=== PATIENT | female | born 1940 | race Caucasian/White ===

== ENCOUNTER 2024-03-02 22:14 | Inpatient (IN) | payer OTHER ==
[~2024-03-02] VITALS: Ht 160 cm; Wt 77.4 kg
[2024-03-02 22:41] LABS: Eosinophils # (auto) 0 10 ^3/uL (0-0.8); Monocytes # (auto) 0.4 10 ^3/uL (0-1.3); White Blood Cell 4.1 10^3/uL (4.4-10.8)
[2024-03-02 22:43] LABS: Basophils # (auto) 0.1 10 ^3/uL (0-0.2); Basophils % (auto) 1.2 % (0.0-2.0); Eosinophils % (auto) 0.6 % (0.0-7.0); Hematocrit 13.1 % (36.0-46.0); Lymphocytes # (auto) 0.5 10 ^3/uL (0.4-5.4); Lymphocytes % (auto) 12.7 % (10.0-50.0); Mean Corpuscular Hemoglobin 20.2 pg (28.0-32.0); Mean Corpuscular Hgb Conc. 28.7 g/dL (32.0-36.0); Mean Corpuscular Volume 70.2 fL (80.0-100.0); Monocytes % (auto) 10.6 % (0.0-12.0); Neutrophils # (auto) 3.1 10 ^3/uL (1.6-8.6); Neutrophils % (auto) 74.9 % (37.0-80.0); Nucleated Red Blood Cells % 0.9 %; Platelet Count (auto) 177 10^3/uL (140-450); Red Blood Cells 1.86 10^6/uL (4.0-5.20)
--- NOTE | 2024-03-02 22:49 | ED.PDOC ---
HPI Comments HPI: Poor Historian. 83-year-old female brought in by ambulance for evaluation of two day history of intermittent chest pain, shortness of breath, dizziness episodes. Patient was going to the bathroom today and she felt dizzy and called 911. No particular alleviating or precipitating factors. Patient takes iron pills. Denies any bleeding from anywhere. Pre-hospital course vital signs per EMS were stable. Past Medcial History: Osteoporosis, hypertension, hyperlipidemia, DVT on Eliquis, Past Surgical History: Bilateral hip surgery, bladder surgery REVIEW OF SYSTEMS: CONSTITUTIONAL: Denies acute: fever, diaphoresis, chills, HEAD: Denies acute: headache, photophobia Eyes: Denies acute: Double vision, vision loss, eye pain, eye discharge. EARS: Denies acute: tinnitus, hearing loss, ear discharge, ear pain, THROAT: Denies acute: sore throat, swelling, difficulty swallowing , pain with swallowing, change in voice. NECK: Denies acute: neck pain, neck swelling, stiff neck. HEART: Denies acute : palpitations, LUNGS: Denies acute: wheezing, cough, hemoptysis ABDOMEN: Denies acute: abdominal pain, Nausea, Vomiting, diarrhea, melena , hematemesis, hematochezia SKIN: Denies acute: rash, redness, lesions, itchiness. EXTREMITIES: Denies acute: calf pain, numbness, tingling, weakness, denies pain in extremity. Denies acute: Low back pain. Neuro: Denies acute: focal neurological deficit, motor or sensory focal neurological deficit, tremors, seizure like activity, confusion, change in mental status, loss of bowel or bladder function, cauda equina like symptoms. : Denies acute: dysuria, hematuria, flank pain, increase in urinary frequency. PSYCH: Denies acute: hallucination, suicidal ideation, homicidal ideation. FEMALE: Denies acute: abnormal vaginal bleeding, foul odor, unusual discharge. PHYSICAL EXAM: General: no acute distress, awake and alert. Head: normocephalic, atraumatic. Neck: supple, trachea is midline, no swelling. Throat: Normal phonation. Eyes:, no erythema, no purulent discharge, no proptosis, no icterus. Heart: regular rate, regular rhythm, no significant murmur appreciated. Lungs: no apparent respiratory distress, Able to speak in full sentences. No wheezing, no rhonchi, no crackles. No stridors Clear to auscultation bilaterally. Abdomen: non tender to palpation, non distended, soft, no guarding, no rebound, + bowel sounds. Neuro: Awake, Alert, oriented to name, self, situation, follows commands GCS=15. Speech is normal. Skin: no petechia, no purpura, no cyanosis, noted-pale, not jaundice. Lower extremities: --1/4 bilateral - Pitting edema no deformity, no focal swelling, no calf TTP. Makes eye contact. moves all four extremities. Face: no apparent facial droop. Chief Complaint: Chest Pain Time Seen by MD: 22:22 Primary Care Provider: NONE Reviewed Notes: Nurses Notes, Player Piano Technician Notes, Medications, Allergies Allergies: Coded Allergies: NO KNOWN ALLERGIES (Unverified , 03/02/24) Home Meds Reported Medications Latanoprost (LATANOPROST) 0.005 % Cecilia, 1 DROP EACHEYE QPM, #2.5 ML 6 Refills 03/03/24 Alendronate Sodium (Alendronate Sodium) 35 Mg Tab, 1 TAB PO QWEEKLY, #4 TAB 11 Refills 03/03/24 Lorazepam (ATIVAN TABLET) 0.5 Mg Tb, 1 TAB PO TID, #90 TAB 03/03/24 Omeprazole (Gnp Omeprazole) 20 Mg Tab, 1 TAB PO DAILY, #90 TAB 1 Refill 03/03/24 Lovastatin (Lovastatin) 40 Mg Tab, 1 TAB PO DAILY, #30 TAB 5 Refills 03/03/24 Metoprolol Tartrate (Lopressor) 25 Mg Tb, 25 MG PO Q12HR, TAB 0 Refills 03/03/24 Apixaban Base (ELIQUIS) 5 Mg Tab, 5 MG PO BID, TAB 03/03/24 Information Source: Patient Mode of Arrival: EMS Was a procedure done? Was a procedure done?: No CP Differential Dx Differential Diagnosis: N/A Differential Diagnosis: Other (Ddx include but not limitied to gastritis, musculoskeletal pain, radiculopathy, atypical chest pain, dissection, aneurysm, ACS, unstable angina, hiatal hernia, GERD, anxiety, costochondritis, PE, pneumothroax, neoplasm, cardiac ischemia, drug abuse, anemia.) X-Ray, Labs, Meds, VS Vital Signs Date Time Temp Pulse Resp B/P (MAP) Pulse Ox O2 Delivery O2 Flow Rate FiO2 03/03/24 00:04 125/42 03/03/24 00:00 85 16 123/38 (66) 95 03/02/24 23:30 84 03/02/24 23:20 98.2 90 21 125/42 (69) 100 98.2 03/02/24 23:20 90 21 100 Room Air* 0 21 03/02/24 22:24 88 03/02/24 22:20 97.7 90 16 131/68 (89) 96 Lab Test 03/02/24 23:50 03/02/24 23:06 03/02/24 22:25 Range/Units Lactic Acid Level 1.3 0.4-2.0 mmol/L Troponin I High Sensitivity 25 21 </=34 ng/L White Blood Count 4.1 L 4.4-10.8 10^3/uL Red Blood Count 1.86 L 4.0-5.20 10^6/uL Hemoglobin 3.8 *L 12.2-16.2 g/dL Hematocrit 13.1 L 36.0-46.0 % Mean Corpuscular Volume 70.2 L 80.0-100.0 fL Mean Corpuscular Hemoglobin 20.2 L 28.0-32.0 pg Mean Corpuscular Hemoglobin Concent 28.7 L 32.0-36.0 g/dL Red Cell Distribution Width 22.7 H 11.8-14.3 % Platelet Count 177 140-450 10^3/uL Mean Platelet Volume 9.1 6.9-10.8 fL Neutrophils (%) (Auto) 74.9 37.0-80.0 % Lymphocytes (%) (Auto) 12.7 10.0-50.0 % Monocytes (%) (Auto) 10.6 0.0-12.0 % Eosinophils (%) (Auto) 0.6 0.0-7.0 % Basophils (%) (Auto) 1.2 0.0-2.0 % Neutrophils # (Auto) 3.1 1.6-8.6 10 ^3/uL Lymphocytes # (Auto) 0.5 0.4-5.4 10 ^3/uL Monocytes # (Auto) 0.4 0-1.3 10 ^3/uL Eosinophils # (Auto) 0 0-0.8 10 ^3/uL Basophils # (Auto) 0.1 0-0.2 10 ^3/uL Nucleated Red Blood Cells 0.9 % Platelet Estimate [place] Large Platelets Few Hypochromasia (manual) Moderate Anisocytosis (manual) Slight Microcytosis Slight Ovalocytes Few Stomatocytes Few Prothrombin Time 12.0 H 9.3-11.8 sec Prothrombin Time INR 1.14 0.9-1.15 Activated Partial Thromboplast Time 24.6 24.5-34.5 SEC Sodium Level 138 136-145 mmol/L Potassium Level 3.9 3.5-5.1 mmol/L Chloride Level 110 H 98-107 mmol/L Carbon Dioxide Level 23 20-31 mmol/L Anion Gap 5 5-15 Blood Urea Nitrogen 12 9-23 mg/dL Creatinine 0.76 0.550-1.02 mg/dL Glomerular Filtration Rate Calc 78 >90 mL/min BUN/Creatinine Ratio 15.8 10.0-20.0 Serum Glucose 119 H 74-106 mg/dL Calcium Level 8.6 L 8.7-10.4 mg/dL Magnesium Level 2.2 1.6-2.6 mg/dL Total Bilirubin 0.5 0.2-1.0 mg/dL Aspartate Amino Transferase (AST) < 8 L 13-40 U/L Alanine Aminotransferase (ALT) < 9 7-40 U/L Alkaline Phosphatase 31 L 46-116 U/L B-Type Natriuretic Peptide 593.36 0-100 pg/mL Total Protein 5.8 5.7-8.2 g/dL Albumin 4.0 3.2-4.8 g/dL [place] [id number] Ph: [phone] DIAGNOSTIC IMAGING Diagnostic Imaging Report : [id number] Signed PATIENT: MARICARMEN FANG ACCT: [id number] UNIT: [id number] : 1940 LOC: ER ROOM / BED: / AGE / SEX: 83 / F ADM STATUS: REG ER SERVICE [id number] ORDERING PHYSICIAN: HARJEET MONTERROSO MD PROCEDURE(s): CXRP - CHEST PORTABLE REASON: CHEST PAIN ORDER NUMBER(s): [id number], ACCESSION NUMBER(s): [id number] EXAM: XY CHEST PORTABLE CLINICAL HISTORY: CHEST PAIN TECHNIQUE: Single AP view of the chest WID: COMPARISON: None FINDINGS: Lines and tubes: None Chest: Mild cardiomegaly without pulmonary vascular congestion. Calcified plaque projects over the aortic arch. Linear bibasilar opacities.Thorax no pneumothorax. Suggestion of blunting of the left costophrenic angle. The osseous structures are grossly intact. Multilevel thoracic spondylosis. Degenerative changes of the bilateral shoulders. IMPRESSION: Mild cardiomegaly with possible small left pleural effusion. Linear bibasilar opacities likely scarring or atelectasis. ATED BY: FELICIANO PRECIADO MD DICTATED DATE/TIME: 03/03/24133 SIGNED BY: FELICIANO PRECIADO MD SIGNED DATE/TIME: 03/03/24133 CC: Time of 1ST Reevaluation: 23:38 (The case was discussed with the admitting team (HPI, physical exam, labs and diagnostic tests that were available at the time of disposition, ED course, treatment plan) on the phone. They agreed to admit the patient to their service and assume care of this patient from this point forward. --- Xiomara) Reevaluation 1ST: Unchanged Patient Education/Counseling: Diagnosis, Treatment Family Education/Counseling: No Family Present Comments Patient presented with the above HPI.---cardiac---workup was initiated. patient was found with the above mentioned diagnosis. Patient was given: Lasix, Protonix, transfusion of packed red blood cells. Patient was consented for transfusion. Patient ED course and VS have been stabilized. Patient has been reassessed in the ED and remained in a stable condition. Pertinent incidental findings were discussed with the patient and/or family. Patient/family voices understanding and is agreeable with plan. Patient has been observed in the ED adequate length of time to insure improvement/stability. patient was admitted to the medicine team for further evaluation and treatment of their presentation. All the reports of any imaging studies that were ordered by myself were reviewed by myself. Departure 1 Departure Time of Disposition: 22:48 Impression: Primary Impression: Chest pain Additional Impression: Symptomatic anemia Disposition: ADMITTED INPATIENT Admit to: Tele Condition: Guarded Discharged With: Self Critical Care Note Critical Care Time?: Yes (45 min-critical care time only) Heart Score Heart Score: Heart Score Response (Comments) Value History Moderate Suspicious 1 EKG Normal 0 Age >65 2 Risk Factors >3 or Hx ASHD 2 Troponin Normal limit 0 Total 5 SURINDER SHERWOOD DO Mar 02, 2024 22:49
[2024-03-02 22:57] LABS: INR 1.14 (0.9-1.15); Partial Thromboplastin Time 24.6 SEC (24.5-34.5)
[2024-03-02 22:59] LABS: Alkaline Phosphatase 31 U/L (46-116); Anion Gap 5 (5-15); Aspartate Aminotransferase < 8 U/L (13-40); BUN/Creatinine Ratio 15.8 (10.0-20.0); Bilirubin, Total 0.5 mg/dL (0.2-1.0); Blood Urea Nitrogen 12 mg/dL (9-23); Calcium 8.6 mg/dL (8.7-10.4); Carbon Dioxide 23 mmol/L (20-31); Chloride 110 mmol/L (98-107); Glucose 119 mg/dL (74-106); Magnesium 2.2 mg/dL (1.6-2.6); Potassium 3.9 mmol/L (3.5-5.1); Sodium 138 mmol/L (136-145); Total Protein 5.8 g/dL (5.7-8.2)
[2024-03-02 23:14] LABS: Alanine Aminotransferase < 9 U/L (7-40)
[2024-03-02 23:16] LABS: Hemoglobin 3.8 g/dL (12.2-16.2); Red Cell Distribution Width 22.7 % (11.8-14.3)
[2024-03-02 23:20] VITALS: PULSE 90; RESP 21; O2SAT 100
[2024-03-02] MEDS: PANTOPRAZOLE 40 MG/10 ML VIAL INJ IV ONE (23:28)
[2024-03-02 23:40] LABS: Anisocytosis Slight; Hypochromia Moderate; Ovalocytes FEW; Stomatocytes Few
[2024-03-02 23:44] LABS: Large Platelets FEW; Platelet Estimate Adequa
[2024-03-03] VITALS (25 sets, daily range): BP systolic 115–146; BP diastolic 38–79; PULSE 73–89; RESP 16–23; TEMP 89–99.5; O2SAT 90–97
[2024-03-03] MEDS: FUROSEMIDE 20 MG/2 ML VIAL IV ONE (00:04)
[2024-03-03] MEDS ORDERED: MORPHINE SULFATE INJ 2 MG/ml SYRG IV PRN ×2 (00:15)
[2024-03-03] MEDS ORDERED: NITROGLYCERIN 0.4 MG SL TAB SL PRN (00:15)
[2024-03-03 00:50] LABS: Urine Bacteria None Seen /hpf (None Seen)
[2024-03-03 01:01] LABS: % Iron Saturation 1.5 % (15-50)
[2024-03-03 01:03] LABS: Urine Blood Negative /uL (Negative); Urine Clarity Clear (Clear); Urine Protein, UAD Negative (Negative); Urine Specific Gravity 1.009 (1.001-1.035); Urine Urobilinogen Normal (Negative); Urine WBC <1 /hpf (0 - 5)
[2024-03-03 01:35] LABS: Urine Color STRAW (Yellow)
--- NOTE | 2024-03-03 01:36 | DVH ---
EXAM: XY CHEST PORTABLE CLINICAL HISTORY: CHEST PAIN TECHNIQUE: Single AP view of the chest WID: COMPARISON: None FINDINGS: Lines and tubes: None Chest: Mild cardiomegaly without pulmonary vascular congestion. Calcified plaque projects over the aortic a rch. Linear bibasilar opacities.Thorax no pneumothorax. Suggestion of blunting of the left costophrenic a ngle. The osseous structures are grossly intact. Multilevel thoracic spondylosis. Degenerative changes of t he bilateral shoulders. IMPRESSION: Mild cardiomegaly with possible small left pleural effusion. Linear bibasilar opacities likely scarring or atelectasis.
--- NOTE | 2024-03-03 04:25 | ECG ---
[facility] Test Date: 2024-03-02 Test Time: 23:30:56 Pat Name: MARICARMEN FANG Department: ER Room: 0278T B Gender: F Measurement Superintendent: ER : 1940 Requested By: HARJEET MONTERROSO Order Number: [id number] Reading MD: Edwin Cortez Measurements Intervals [place] Rate: 84 P: 58 ID: [id number] QRS: -24 QRSD: 136 T: 69 QT: 394 QTc: 466 Interpretive Statements Sinus rhythm Atrial premature complex Nonspecific intraventricular conduction delay Probable anteroseptal infarct, recent Electronically Signed On 03-03-2024 9:32:05 PDT by Edwin Cortez Please click the below link to view image of tracing.
--- NOTE | 2024-03-03 04:25 | ECG ---
[facility] Test Date: 2024-03-02 Test Time: 22:24:50 Pat Name: MARICARMEN FANG Department: ER Room: 0278T B Gender: F Chargeback Analyst: ER : 1940 Requested By: HARJEET MONTERROSO Order Number: [id number] Reading MD: Edwin Cortez Measurements Intervals [place] Rate: 88 P: 46 [place]: 151 QRS: 7 QRSD: 136 T: 26 QT: 402 QTc: 487 Interpretive Statements Sinus rhythm Ventricular premature complex Nonspecific intraventricular conduction delay Extensive anterior infarct, old Minimal ST depression, lateral leads Electronically Signed On 03-03-2024 9:32:00 PDT by Edwin Cortez Please click the below link to view image of tracing.
--- NOTE | 2024-03-03 04:26 | ECG ---
[facility] Test Date: 2024-03-03 Test Time: 01:16:14 Pat Name: MARICARMEN FANG Department: ER Room: 0278T B Gender: F Optical Worker: ER : 1940 Requested By: HARJEET MONTERROSO Order Number: [id number] Reading MD: Edwin Cortez Measurements Intervals [place] Rate: 77 P: 47 [place]: 140 QRS: 25 QRSD: 136 T: 63 QT: 417 QTc: 472 Interpretive Statements Sinus rhythm IVCD, consider atypical LBBB Baseline wander in lead(s) III,aVL,V1,V2,V3,V4,V6 Electronically Signed On 03-03-2024 9:32:12 PDT by Edwin Cortez Please click the below link to view image of tracing.
[2024-03-03] MEDS ORDERED: APIX5TAB PO (05:33)
[2024-03-03] MEDS ORDERED: LOVA40TA72 PO (05:34)
[2024-03-03] MEDS ORDERED: MET25T PO (05:34)
[2024-03-03] MEDS ORDERED: OMEP20TA PO (05:34)
[2024-03-03] MEDS ORDERED: LORA-1121 PO (05:35)
[2024-03-03] MEDS ORDERED: ALEN35TA18 PO (05:35)
[2024-03-03] MEDS ORDERED: LATA0.008 EACHEYE (05:36)
--- NOTE | 2024-03-03 05:43 | DVHHP ---
ADMIT DATE: 03/02/2024 CHIEF COMPLAINT: Coming in for dyspnea, lightheadedness, lack of energy. HISTORY OF PRESENT ILLNESS: An 83-year-old female with significant past medical history for chronic DVTs, on Eliquis, essential hypertension, hyperlipidemia, iron deficiency anemia, who presents to Emergency Room with 3 days' worth of shortness of breath, dyspnea, lack of energy, feeling lightheadedness, chest tightness and feeling the sensation of collapse and the patient apparently also looking very pale on presentation here to the Emergency Room. Says her symptoms progressively got worse today to a point where she could not even get up to stand or to walk and felt lightheaded to a point that she felt like she was going to syncopize. The patient also felt some chest pressure symptoms. She says that she has not had any palpitations, but felt like her heart was thumping or unusually pumping compared to usual. She did not have any nausea or vomiting. The patient says that she has had some bright red blood on wiping herself the other day, but no other occasion that she had noticed any tarry or bloody stools in the last month. She does take iron pills, but quit them 4 weeks ago due to constipation. The patient says that she has had a blood transfusion many years ago, but never has required any as of the last few years. The patient otherwise denies any other constitutional symptoms including fevers, chills. She denies any cough or phlegm, urinary frequency, urgency or burning sensation, any diarrhea or constipation. PAST MEDICAL HISTORY: DVTs, essential hypertension, hyperlipidemia, iron deficiency anemia. PAST SURGICAL HISTORY: Left hip replacement 3 years ago, right hip replacement about 12 months ago, bladder surgery about 8 years ago, hysterectomy history, appendectomy history and one tonsil removal. SOCIAL HISTORY: No tobacco, occasional alcohol, no illicit drugs. MEDICATIONS AT HOME: Per medical reconciliation. MEDICATION ALLERGIES: No known drug allergies. REVIEW OF SYSTEMS: A 10-point review of system was covered with the patient and was negative with exception to what was present in history of present illness. PHYSICAL EXAMINATION: VITAL SIGNS: Temperature 98.2, pulse rate of 90, respiratory rate of 21, blood pressure of 125/42, pulse ox about 100% on room air. GENERAL: Seems to be alert, oriented x 4, not in acute distress, pale looking female, lying in bed. HEENT: Normocephalic, atraumatic. Extraocular muscles are intact. Pupils are equally round, react to light and accommodations. Mucous membranes look moist. CARDIOVASCULAR: S1, S2 positive, regular rate and rhythm. No rubs, gallops or murmurs. LUNGS: Seem to be clear to auscultation bilaterally. No wheezes, rhonchi or rales. ABDOMEN: Seems to be soft, nontender, nondistended, positive bowel sounds. No guarding or rebound. EXTREMITIES: Lower extremities, no lower extremity edema, clubbing or cyanosis. NEUROLOGIC: No focal deficits. Cranial nerves testing 2-12 overall seems to be intact. LABORATORY WORKUP: Shows a white count 4.1, H and H of 3.8/13.1 with a platelet count of 177. There is no neutrophil shift. INR of 1.14. Sodium of 138, potassium of 3.9, chloride of 110, carbon dioxide of 23, BUN of 12, creatinine of 0.76, serum glucose of 119. Lactic acid 1.3, calcium of 8.6, total bilirubin 0.5, AST of less than 8, ALT of less than 9, alkaline phosphatase of 31. Troponins of 21 and 25. BNP of 593. IMAGING: Chest x-ray was completed, shows enlarged heart with some pulmonary vascular congestion is present. Final interpretation by Radiology is currently pending. EKG shows sinus rhythm, ventricular rate of 84 with atrial premature complexes present. DIAGNOSIS: Symptomatic anemia. SECONDARY DIAGNOSES: History of deep venous thrombosis, essential hypertension, hyperlipidemia, iron deficiency anemia. PLAN: The patient will be admitted to medical telemetry for under observation status. Consultation with Hematology as well as Gastroenterology has been requested. The patient is currently stable with blood pressures in the 120s over 40s with heart rates in the 80s to 90s. The patient seems to have what seems to be a chronic loss of blood, possibly due to a bone marrow etiology versus hemolytic process and less likely a gastrointestinal loss. The patient despite this will be maintained n.p.o. at this point in time. Eliquis will be held at this point. We will await further recommendations by consultants. The patient will be placed on Protonix 40 IV b.i.d. The patient to have serial CBCs q. 6 hours. The patient has been ordered to be typed and screened and to be transfused with 2 units of blood and to have a post-transfusion CBC completed. The patient has also been ordered hemolytic workup with direct and total bilirubin, haptoglobin, lactate dehydrogenase and as well as an iron panel and as well as a stool fecal occult blood to be completed. The patient otherwise is a full code. Further recommendations will depend on patient's hospital progression. Joselito Marroquin MD LM/HEM TID: [id number] RECEIPT: [id number]
--- NOTE | 2024-03-03 08:27 | DVHINCON2 ---
Date of service: Mar 03, [address] Ty Reason for Consultation Microcytic hypochromic anemia consistent with iron deficiency History of Present Illness 83 years old female who gives the following history: She states 3 years back she broke her left hip and sometimes later was found to have a blood clot and she is not too sure which side the blood clot was. She has been on Eliquis since then. She says 1 year back she broke her right hip and does not give any history of any new blood clots. She has continued on the Eliquis. Now she is admitted with severe anemia weakness tiredness and lightheadedness And her CBC showed a white count of 4.1 hemoglobin 3.8 MCV 70.2 platelets 177 confirmed on the blood smear Total protein 5.8 albumin 4 LDH 144 normal liver functions. Serum iron is down to 6 saturation is 1.5 and has normal renal functions PT/INR 1.14 and PTT 24.6 She has been given 2 units of packed red cells and is feeling somewhat better She does complain of having some pain in the left lower quadrant of the abdomen. No change in her bowel habits. No nausea vomiting. No black stools. No complaints of weight loss. No fevers night sweats no bruising or bleeding. Past Medical History Both hip fractures Hysterectomy She says she had packed red cell transfusion probably 50 years back for some unknown reason Hypertension High cholesterol Family History: FH: dementia Family History No smoking at least for 10 years. Rare alcohol drinking. No drugs Social History Father had some cancer Allergies: Coded Allergies: NO KNOWN ALLERGIES (Unverified , 03/02/24) Home Meds Reported Medications Latanoprost (LATANOPROST) 0.005 % Cecilia, 1 DROP EACHEYE QPM, #2.5 ML 6 Refills 03/03/24 Alendronate Sodium (Alendronate Sodium) 35 Mg Tab, 1 TAB PO QWEEKLY, #4 TAB 11 Refills 03/03/24 Lorazepam (ATIVAN TABLET) 0.5 Mg Tb, 1 TAB PO TID, #90 TAB 03/03/24 Omeprazole (Gnp Omeprazole) 20 Mg Tab, 1 TAB PO DAILY, #90 TAB 1 Refill 03/03/24 Lovastatin (Lovastatin) 40 Mg Tab, 1 TAB PO DAILY, #30 TAB 5 Refills 03/03/24 Metoprolol Tartrate (Lopressor) 25 Mg Tb, 25 MG PO Q12HR, TAB 0 Refills 03/03/24 Apixaban Base (ELIQUIS) 5 Mg Tab, 5 MG PO BID, TAB 03/03/24 Current Medications Current Medications Medications (Trade) Dose Ordered Sig/Wm Route PRN Reason Start Time Stop Time Status Last Admin Ondansetron HCl (Zofran) 4 mg Q4HP PRN IV NAUSEA / VOMITING 03/03/24 00:15 Morphine Sulfate 2 mg Q4HPRN PRN IV SEVERE PAIN (7-10 PAIN SCALE) 03/03/24 00:15 Nitroglycerin (Ntrostat Sublingual) 0.4 mg Q5MINP PRN SL FOR CHEST PAIN 03/03/24 00:15 Morphine Sulfate 2 mg Q30M PRN IV FOR CHEST PAIN 03/03/24 00:15 Pantoprazole Sodium (Protonix) 40 mg DAILY IV 03/03/24 10:00 Vital Signs Vital Signs Date Time Temp Pulse Resp B/P (MAP) Pulse Ox O2 Delivery O2 Flow Rate FiO2 03/03/24 07:20 98.8 75 18 143/59 98.8 03/03/24 05:00 97 03/03/24 04:50 Room Air* 0 21 Physical Exam Patient is moderately built and nourished, in no acute distress, alert and oriented Head and neck: Unremarkable for any masses or lymphadenopathy. Thyroid is not palpable No conjunctival or mucosal hemorrhage Lungs: Clear to auscultation and percussion Cardiovascular: S1-S2 heard Abdomen: No organomegaly . Bowel sounds are present. No ascites.Slightly tender in the left lower quadrant of the abdomen No lymphadenopathy Skin: Unremarkable for petechia purpura ecchymosis Neurology: No focal deficit Extremities: No clubbing, edema or cyanosis. No calf tenderness Labs/Diagnostic Data Labs Test 03/03/24 00:29 03/03/24 00:25 03/02/24 23:50 03/02/24 23:06 Range/Units Urine Color Straw Yellow Urine Clarity Clear Clear Urine pH 6.0 5.0-9.0 Urine Specific [place] 1.009 1.001-1.035 Urine Protein Negative Negative Urine Ketones Negative Negative Urine Blood Negative Negative /uL Urine Nitrite Negative Negative Urine Bilirubin Negative Negative Urine Urobilinogen Normal Negative mg/dL Urine Leukocyte Esterase 1+ Negative /uL Urine RBC None seen 0 - 4 /hpf Urine WBC <1 0 - 5 /hpf Urine Squamous Epithelial Cells Few <5 /hpf Urine Bacteria None seen None Seen /hpf Urine Glucose Normal Normal mg/dL Reticulocyte Count (auto) 2.77 H 0.5-1.5 % Iron Level 6 L 50-170 ug/dL Total Iron Binding Capacity 409 250-425 ug/dL Percent Iron Saturation 1.5 L 15-50 % Direct Bilirubin 0.2 <0.3 mg/dL Lactate Dehydrogenase 144 120-246 U/L Lactic Acid Level 1.3 0.4-2.0 mmol/L Troponin I High Sensitivity 25 </=34 ng/L Test 03/02/24 22:25 Range/Units White Blood Count 4.1 L 4.4-10.8 10^3/uL Red Blood Count 1.86 L 4.0-5.20 10^6/uL Hemoglobin 3.8 *L 12.2-16.2 g/dL Hematocrit 13.1 L 36.0-46.0 % Mean Corpuscular Volume 70.2 L 80.0-100.0 fL Mean Corpuscular Hemoglobin 20.2 L 28.0-32.0 pg Mean Corpuscular Hemoglobin Concent 28.7 L 32.0-36.0 g/dL Red Cell Distribution Width 22.7 H 11.8-14.3 % Platelet Count 177 140-450 10^3/uL Mean Platelet Volume 9.1 6.9-10.8 fL Neutrophils (%) (Auto) 74.9 37.0-80.0 % Lymphocytes (%) (Auto) 12.7 10.0-50.0 % Monocytes (%) (Auto) 10.6 0.0-12.0 % Eosinophils (%) (Auto) 0.6 0.0-7.0 % Basophils (%) (Auto) 1.2 0.0-2.0 % Neutrophils # (Auto) 3.1 1.6-8.6 10 ^3/uL Lymphocytes # (Auto) 0.5 0.4-5.4 10 ^3/uL Monocytes # (Auto) 0.4 0-1.3 10 ^3/uL Eosinophils # (Auto) 0 0-0.8 10 ^3/uL Basophils # (Auto) 0.1 0-0.2 10 ^3/uL Nucleated Red Blood Cells 0.9 % Platelet Estimate [place] Large Platelets Few Hypochromasia (manual) Moderate Anisocytosis (manual) Slight Microcytosis Slight Ovalocytes Few Stomatocytes Few Prothrombin Time 12.0 H 9.3-11.8 sec Prothrombin Time INR 1.14 0.9-1.15 Activated Partial Thromboplast Time 24.6 24.5-34.5 SEC Sodium Level 138 136-145 mmol/L Potassium Level 3.9 3.5-5.1 mmol/L Chloride Level 110 H 98-107 mmol/L Carbon Dioxide Level 23 20-31 mmol/L Anion Gap 5 5-15 Blood Urea Nitrogen 12 9-23 mg/dL Creatinine 0.76 0.550-1.02 mg/dL Glomerular Filtration Rate Calc 78 >90 mL/min BUN/Creatinine Ratio 15.8 10.0-20.0 Serum Glucose 119 H 74-106 mg/dL Calcium Level 8.6 L 8.7-10.4 mg/dL Magnesium Level 2.2 1.6-2.6 mg/dL Total Bilirubin 0.5 0.2-1.0 mg/dL Aspartate Amino Transferase (AST) < 8 L 13-40 U/L Alanine Aminotransferase (ALT) < 9 7-40 U/L Alkaline Phosphatase 31 L 46-116 U/L B-Type Natriuretic Peptide 593.36 0-100 pg/mL Total Protein 5.8 5.7-8.2 g/dL Albumin 4.0 3.2-4.8 g/dL Assessment 1. Microcytic hypochromic anemia consistent with iron deficiency, rule out GI bleeding, she has some tenderness in the left lower quadrant of the abdomen. Patient has been on Eliquis and she said last dose she took was yesterday 2. History of leg DVT after a left hip fracture 3 years back and has been on Eliquis. Was provoked DVT. 3. History of hypertension 4. High cholesterol 5. History of hysterectomy Plan/Recommendation Suggest doing a venous Doppler and may DC the Eliquis as she had a provoked DVT Check D-dimer GI evaluation for iron deficiency anemia and left lower quadrant abdominal tenderness Do a CT scan of the abdomen pelvis with contrast Plan discussed with: Patient CALOS OLVERA MD Mar 03, 2024 08:27
[2024-03-03] MEDS: OMNIPAQUE 12mg/ml 500ml ORAL SOLUTION PO ONE (08:37)
--- NOTE | 2024-03-03 09:30 | DVH ---
Bilateral lower extremity venous duplex Clinical History: swelling Comparison: None Technique: Duplex Doppler evaluation of the deep venous systems of both lower extremities from the common femora l veins to the popliteal veins including color Doppler and spectral/pulsed waveform analysis was perf ormed. Findings: RIGHT SIDE: The common femoral vein demonstrates appropriate compressibility and waveform variability. There is compressibility/patency of the great saphenous vein at the proximal thigh. The femoral vein demonstrates appropriate compressibility and waveform variability. The deep femoral vein demonstrates appropriate compressibility and waveform variability. The popliteal vein demonstrates appropriate compressibility and waveform variability. There is normal compressibility at the tibioperoneal trunk. LEFT SIDE: The common femoral vein demonstrates appropriate compressibility and waveform variability. There is compressibility/patency of the great saphenous vein at the proximal thigh. The femoral vein demonstrates appropriate compressibility and waveform variability. The deep femoral vein demonstrates appropriate compressibility and waveform variability. The popliteal vein demonstrates appropriate compressibility and waveform variability. There is normal compressibility at the tibioperoneal trunk. Impression: No right or left femoropopliteal venous thrombosis.
[2024-03-03] MEDS: PANTOPRAZOLE 40 MG/10 ML VIAL INJ IV SCH (09:58)
[2024-03-03] MEDS: ONDANSETRON HCL 4 MG/2 ML VIAL IV PRN (10:03)
[2024-03-03] MEDS: IOHEXOL 300 MG/ML 100ML BOTTLE IJ ONE (10:16)
[2024-03-03 10:17] LABS: Alkaline Phosphatase 37 U/L (46-116); Anion Gap 7 (5-15); BUN/Creatinine Ratio 14.3 (10.0-20.0); Blood Urea Nitrogen 11 mg/dL (9-23); Calcium 8.9 mg/dL (8.7-10.4); Carbon Dioxide 25 mmol/L (20-31); Chloride 105 mmol/L (98-107); Glucose 98 mg/dL (74-106); Potassium 3.6 mmol/L (3.5-5.1); Sodium 137 mmol/L (136-145)
[2024-03-03 10:18] LABS: Albumin 4.1 g/dL (3.2-4.8); Aspartate Aminotransferase < 8 U/L (13-40); Bilirubin, Total 2.1 mg/dL (0.2-1.0); Total Protein 6.2 g/dL (5.7-8.2)
[2024-03-03 10:19] LABS: Alanine Aminotransferase < 9 U/L (7-40)
--- NOTE | 2024-03-03 10:50 | DVH ---
Exam: CT CT ABD PELVIS W CON-ORAL IV History: anemia, lt LQ abd tenderness COMPARISON: None Technique: Multidetector spiral CT of the abdomen and pelvis was performed from lung bases to pubic symphysis. Intravenous contrast was administered during this examination. Portal venous imaging was obtained. Axial, coronal and sagittal multiplanar reformats were performed by the technologist on a separate workstation. Radiation Dose : Abdomen/Pelvis: CTDIvol 22.16 mGy, DLP 1208.62 mGy*cm. CONTRAST: Type of contrast: Omni 300 Contrast injected: 100 mL Findings: Lung Bases: There are small bilateral pleural effusions with associated bibasilar atelectasis and con solidation. Liver: There are few subcentimeter cysts in the liver appear Gallbladder and biliary Tree: Unremarkable Spleen: Unremarkable Pancreas: The pancreas is normal in appearance without focal lesions or abnormal enhancement. Adrenal Glands: Unremarkable Kidneys: There is a left renal cyst measuring up to 19 mm. No hydroneprhosis. Bladder: Unremarkable Bowel: The stomach is grossly normal in appearance. Small bowel and colon are normal in caliber and d istribution. The appendix is not visualized; however, no secondary findings of acute appendicitis id entified. Ascites: Absent Lymphadenopathy: No mesenteric, retroperitoneal or periportal lymphadenopathy. Abdominal wall and Mesentery: Unremarkable. Vasculature: The visualized abdominal aorta is normal in size and caliber. Abdominal and pelvic vess els demonstrate normal enhancement. IVC filter noted Pelvic Organs: The uterus is surgically absent. Evaluation of the pelvis is limited by artifact from surgical hardware in the bilateral femurs. Musculoskeletal: No aggressive focal bony lesions, acute fractures or dislocation. IMPRESSION: 1. Small bilateral pleural effusions with associated bibasilar atelectasis and consolidation period f ew tiny hepatic cysts. Left renal cyst. Radiation optimization: All CT scans at this facility use at least one of these dose optimization iman hniques: Automated exposure control mA and/or kV adjustment per patient size (includes targeted exams where dose is matched to clinical indication) or iterative reconstruction. HS:Y
--- NOTE | 2024-03-03 16:53 | PRN ---
Misceleneous Note Note Note 03/03/2024 GI consultation: Reason for consultation anemia suspect GI bleed Referring provider: [place] History of present illness: The patient is an 83-year-old female with a past medical history significant for iron deficiency anemia, hyperlipidemia, history of DVTs on Eliquis who was admitted with weakness, fatigue and shortness o of breath with mild epigastric abdominal discomfort. The patient went to the emergency room and was noted to have severe anemia. She denies melena or hematochezia. She denies hematemesis dysphagia or odynophagia. Patient denies taking any aspirin or NSAIDs. Patient has had a colonoscopy many years ago. Patient denies chest pain or palpitations. She denies any bruising. GI consultation was obtained for anemia and suspected GI bleed. Past medical history: As above, hypertension, hyperlipidemia Past surgical history: 1. Hip replacement 2. Appendectomy 3. Hysterectomy 4. Bladder surgery Current Medications Medications (Trade) Dose Ordered Sig/Wm Route PRN Reason Start Time Stop Time Status Last Admin Morphine Sulfate 2 mg Q30M PRN IV FOR CHEST PAIN 03/03/24 00:15 Morphine Sulfate 2 mg Q4HPRN PRN IV SEVERE PAIN (7-10 PAIN SCALE) 03/03/24 00:15 Nitroglycerin (Ntrostat Sublingual) 0.4 mg Q5MINP PRN SL FOR CHEST PAIN 03/03/24 00:15 Ondansetron HCl (Zofran) 4 mg Q4HP PRN IV NAUSEA / VOMITING 03/03/24 00:15 03/03/24 10:03 Pantoprazole Sodium (Protonix) 40 mg DAILY IV 03/03/24 10:00 03/03/24 09:58 Current Medications Medications (Trade) Dose Ordered Sig/Wm Route PRN Reason Start Time Stop Time Status Last Admin Ondansetron HCl (Zofran) 4 mg Q4HP PRN IV NAUSEA / VOMITING 03/03/24 00:15 03/03/24 10:03 Morphine Sulfate 2 mg Q4HPRN PRN IV SEVERE PAIN (7-10 PAIN SCALE) 03/03/24 00:15 Nitroglycerin (Ntrostat Sublingual) 0.4 mg Q5MINP PRN SL FOR CHEST PAIN 03/03/24 00:15 Morphine Sulfate 2 mg Q30M PRN IV FOR CHEST PAIN 03/03/24 00:15 Pantoprazole Sodium (Protonix) 40 mg DAILY IV 03/03/24 10:00 03/03/24 09:58 Current Medications Medications (Trade) Dose Ordered Sig/Wm Route Start Time Stop Time Status Last Admin Dose Admin Ondansetron HCl (Zofran) 4 mg Q4HP PRN IV 03/03/24 00:15 03/03/24 10:03 Morphine Sulfate 2 mg Q4HPRN PRN IV 03/03/24 00:15 Nitroglycerin (Ntrostat Sublingual) 0.4 mg Q5MINP PRN SL 03/03/24 00:15 Morphine Sulfate 2 mg Q30M PRN IV 03/03/24 00:15 Pantoprazole Sodium (Protonix) 40 mg DAILY IV 03/03/24 10:00 03/03/24 09:58 Review of systems: Twelve point review of systems negative other than HPI Vital Signs Date Time Temp Pulse Resp B/P (MAP) Pulse Ox O2 Delivery O2 Flow Rate FiO2 03/03/24 16:40 99.4 83 18 138/64 99.4 03/03/24 16:24 94 03/03/24 08:00 Room Air* 0 21 Physical exam: General: Alert elderly female lying in bed no distress HEENT: Pale conjunctiva, otherwise normocephalic atraumatic extraocular movements are intact Heart: Regular rate and rhythm Abdomen: Soft mild epigastric tenderness to palpation Extremity no clubbing cyanosis or edema Labs Test 03/03/24 09:35 03/03/24 00:29 03/03/24 00:25 03/02/24 23:50 Range/Units D-Dimer, Quantitative 0.47 0.0-0.49 mg/L FEU Sodium Level 137 136-145 mmol/L Potassium Level 3.6 3.5-5.1 mmol/L Chloride Level 105 98-107 mmol/L Carbon Dioxide Level 25 20-31 mmol/L Anion Gap 7 5-15 Blood Urea Nitrogen 11 9-23 mg/dL Creatinine 0.77 0.550-1.02 mg/dL Glomerular Filtration Rate Calc 76 >90 mL/min BUN/Creatinine Ratio 14.3 10.0-20.0 Serum Glucose 98 74-106 mg/dL Calcium Level 8.9 8.7-10.4 mg/dL Total Bilirubin 2.1 H 0.2-1.0 mg/dL Aspartate Amino Transferase (AST) < 8 L 13-40 U/L Alanine Aminotransferase (ALT) < 9 7-40 U/L Alkaline Phosphatase 37 L 46-116 U/L Total Protein 6.2 5.7-8.2 g/dL Albumin 4.1 3.2-4.8 g/dL Urine Color Straw Yellow Urine Clarity Clear Clear Urine pH 6.0 5.0-9.0 Urine Specific [place] 1.009 1.001-1.035 Urine Protein Negative Negative Urine Ketones Negative Negative Urine Blood Negative Negative /uL Urine Nitrite Negative Negative Urine Bilirubin Negative Negative Urine Urobilinogen Normal Negative mg/dL Urine Leukocyte Esterase 1+ Negative /uL Urine RBC None seen 0 - 4 /hpf Urine WBC <1 0 - 5 /hpf Urine Squamous Epithelial Cells Few <5 /hpf Urine Bacteria None seen None Seen /hpf Urine Glucose Normal Normal mg/dL Reticulocyte Count (auto) 2.77 H 0.5-1.5 % Iron Level 6 L 50-170 ug/dL Total Iron Binding Capacity 409 250-425 ug/dL Percent Iron Saturation 1.5 L 15-50 % Direct Bilirubin 0.2 <0.3 mg/dL Lactate Dehydrogenase 144 120-246 U/L Lactic Acid Level 1.3 0.4-2.0 mmol/L Test 03/02/24 23:06 03/02/24 22:25 Range/Units Troponin I High Sensitivity 25 </=34 ng/L White Blood Count 4.1 L 4.4-10.8 10^3/uL Red Blood Count 1.86 L 4.0-5.20 10^6/uL Hemoglobin 3.8 *L 12.2-16.2 g/dL Hematocrit 13.1 L 36.0-46.0 % Mean Corpuscular Volume 70.2 L 80.0-100.0 fL Mean Corpuscular Hemoglobin 20.2 L 28.0-32.0 pg Mean Corpuscular Hemoglobin Concent 28.7 L 32.0-36.0 g/dL Red Cell Distribution Width 22.7 H 11.8-14.3 % Platelet Count 177 140-450 10^3/uL Mean Platelet Volume 9.1 6.9-10.8 fL Neutrophils (%) (Auto) 74.9 37.0-80.0 % Lymphocytes (%) (Auto) 12.7 10.0-50.0 % Monocytes (%) (Auto) 10.6 0.0-12.0 % Eosinophils (%) (Auto) 0.6 0.0-7.0 % Basophils (%) (Auto) 1.2 0.0-2.0 % Neutrophils # (Auto) 3.1 1.6-8.6 10 ^3/uL Lymphocytes # (Auto) 0.5 0.4-5.4 10 ^3/uL Monocytes # (Auto) 0.4 0-1.3 10 ^3/uL Eosinophils # (Auto) 0 0-0.8 10 ^3/uL Basophils # (Auto) 0.1 0-0.2 10 ^3/uL Nucleated Red Blood Cells 0.9 % Platelet Estimate [place] Large Platelets Few Hypochromasia (manual) Moderate Anisocytosis (manual) Slight Microcytosis Slight Ovalocytes Few Stomatocytes Few Prothrombin Time 12.0 H 9.3-11.8 sec Prothrombin Time INR 1.14 0.9-1.15 Activated Partial Thromboplast Time 24.6 24.5-34.5 SEC Magnesium Level 2.2 1.6-2.6 mg/dL B-Type Natriuretic Peptide 593.36 0-100 pg/mL Impression: Microcytic anemia Suspect GI bleed Recommendations: 1. Continue Protonix 2. Transfuse two more units of packed red blood cells 3. We will schedule for EGD and colonoscopy this weekend 4. Clear liquid diet. 5. Continue to hold RONNELL Rutledge MD Mar 03, 2024 16:53
[2024-03-03 21:17] LABS: Hematocrit 30.9 % (36.0-46.0); Hemoglobin 9.8 g/dL (12.2-16.2)
[2024-03-04] VITALS (9 sets, daily range): BP systolic 107–143; BP diastolic 44–55; PULSE 77–97; RESP 16–18; TEMP 97.6–99.2; O2SAT 90–94
--- NOTE | 2024-03-04 06:33 | DVHPN2 ---
Progress Note Date Seen: Mar 04, 2024 Has the PT tested + for MRSA If YES, has PT been informed?: No Medical Necessity Reason Pt with a Central, PICC or Fol: No Subjective Review of Systems: HEENT:Normal, CVS:Normal, RESPIRATORY:Normal, GI:Abnormal Objective vital signs Vital Sign Date Time Temp Pulse Resp B/P (MAP) Pulse Ox O2 Delivery O2 Flow Rate FiO2 03/04/24 01:37 98.5 98.5 03/04/24 01:00 84 18 109/55 (73) 91 03/03/24 20:00 Room Air* 0 21 Total Intake and Output 03/03/24 03/03/24 03/04/24 15:00 23:00 07:00 Intake Total 300 ml 900 ml Balance 300 ml 900 ml medications Current Medications Medications Dose Ordered Sig/Wm Route Start Time Stop Time Status Last Admin Dose Admin Ondansetron HCl 4 mg Q4HP PRN IV 03/03/24 00:15 03/03/24 18:33 4 MG Morphine Sulfate 2 mg Q4HPRN PRN IV 03/03/24 00:15 Nitroglycerin 0.4 mg Q5MINP PRN SL 03/03/24 00:15 Morphine Sulfate 2 mg Q30M PRN IV 03/03/24 00:15 Pantoprazole Sodium 40 mg DAILY IV 03/03/24 10:00 03/03/24 09:58 40 MG Examination: GENERAL:Normal, LUNGS:Normal, CVS:Normal, ABDOMEN:Normal laboratory and microbiology Laboratory Tests 03/03/24 20:54 03/03/24 09:35 03/02/24 22:25 Test 03/03/24 09:35 Range/Units Serum Glucose 98 74-106 mg/dL Problem List/Assessment/Plan Problem List/Assessment/Plan 1) GI Bleed 2) Anemia s/p 4 units PRBCs 3) HTN 4) HLD 5) H/O DVT planl Hgb 9.8 after 4 units PRBC transfused, clear liquid diet, blood thinners on hold, GI to plan for EGD/colo this , will follow medically, supportive care, trend Hgb, full code Plan discussed with: Other (n) BRANDAN CHAO MD Mar 04, 2024 06:33
[2024-03-04 07:02] LABS: Basophils # (auto) 0.1 10 ^3/uL (0-0.2); Hemoglobin 10.3 g/dL (12.2-16.2); Lymphocytes # (auto) 0.7 10 ^3/uL (0.4-5.4); Monocytes # (auto) 0.9 10 ^3/uL (0-1.3); Nucleated Red Blood Cells % 0.6 %
[2024-03-04 07:04] LABS: Basophils % (auto) 0.9 % (0.0-2.0); Eosinophils # (auto) 0 10 ^3/uL (0-0.8); Eosinophils % (auto) 0.7 % (0.0-7.0); Hematocrit 32.2 % (36.0-46.0); Lymphocytes % (auto) 9.6 % (10.0-50.0); Mean Corpuscular Hemoglobin 25.4 pg (28.0-32.0); Mean Corpuscular Volume 79.4 fL (80.0-100.0); Monocytes % (auto) 11.9 % (0.0-12.0); Neutrophils # (auto) 5.7 10 ^3/uL (1.6-8.6); Neutrophils % (auto) 76.9 % (37.0-80.0); Platelet Count (auto) 161 10^3/uL (140-450); Red Blood Cells 4.05 10^6/uL (4.0-5.20); Red Cell Distribution Width 22.4 % (11.8-14.3); White Blood Cell 7.4 10^3/uL (4.4-10.8)
[2024-03-04 11:10] LABS: Basophils # (auto) 0.1 10 ^3/uL (0-0.2); Basophils % (auto) 1.1 % (0.0-2.0); Eosinophils # (auto) 0.1 10 ^3/uL (0-0.8); Eosinophils % (auto) 1.1 % (0.0-7.0); Hematocrit 33.4 % (36.0-46.0); Hemoglobin 10.5 g/dL (12.2-16.2); Lymphocytes # (auto) 0.6 10 ^3/uL (0.4-5.4); Lymphocytes % (auto) 8.2 % (10.0-50.0); Mean Corpuscular Hemoglobin 25.5 pg (28.0-32.0); Mean Corpuscular Hgb Conc. 31.4 g/dL (32.0-36.0); Mean Corpuscular Volume 81.3 fL (80.0-100.0); Monocytes % (auto) 13.9 % (0.0-12.0); Neutrophils # (auto) 5.5 10 ^3/uL (1.6-8.6); Neutrophils % (auto) 75.7 % (37.0-80.0); Nucleated Red Blood Cells % 0.5 %; Platelet Count (auto) 165 10^3/uL (140-450); Red Cell Distribution Width 22.3 % (11.8-14.3); White Blood Cell 7.2 10^3/uL (4.4-10.8)
[2024-03-04 16:14] LABS: Basophils # (auto) 0.1 10 ^3/uL (0-0.2); Eosinophils # (auto) 0.1 10 ^3/uL (0-0.8); Lymphocytes # (auto) 0.7 10 ^3/uL (0.4-5.4); Mean Corpuscular Hemoglobin 25.1 pg (28.0-32.0); Monocytes # (auto) 0.9 10 ^3/uL (0-1.3)
[2024-03-04 16:16] LABS: Basophils % (auto) 1.2 % (0.0-2.0); Eosinophils % (auto) 1.1 % (0.0-7.0); Hemoglobin 10.4 g/dL (12.2-16.2); Lymphocytes % (auto) 9.5 % (10.0-50.0); Mean Corpuscular Hgb Conc. 31.5 g/dL (32.0-36.0); Mean Corpuscular Volume 79.7 fL (80.0-100.0); Monocytes % (auto) 11.7 % (0.0-12.0); Neutrophils # (auto) 5.6 10 ^3/uL (1.6-8.6); Neutrophils % (auto) 76.5 % (37.0-80.0); Nucleated Red Blood Cells % 0.4 %; Platelet Count (auto) 170 10^3/uL (140-450); Red Blood Cells 4.15 10^6/uL (4.0-5.20); White Blood Cell 7.3 10^3/uL (4.4-10.8)
[2024-03-04] MEDS: GOLYTELY 4L KIT PO ONE (16:38)
--- NOTE | 2024-03-04 20:06 | PRN ---
Misceleneous Note Note Note Subjective: Patient is prepping for colonoscopy. She was being changed at the time of examination. Vital Signs Date Time Temp Pulse Resp B/P (MAP) Pulse Ox O2 Delivery O2 Flow Rate FiO2 03/04/24 17:00 99.2 94 16 143/53 (83) 92 99.2 03/04/24 08:00 Room Air* 0 21 Physical examination: Alert and oriented Soft abdomen nontender nondistended line no clubbing cyanosis or edema Stool is brown Labs Test 03/04/24 15:57 03/03/24 09:35 03/03/24 00:29 03/03/24 00:25 Range/Units White Blood Count 7.3 4.4-10.8 10^3/uL Red Blood Count 4.15 4.0-5.20 10^6/uL Hemoglobin 10.4 L 12.2-16.2 g/dL Hematocrit 33.0 L 36.0-46.0 % Mean Corpuscular Volume 79.7 L 80.0-100.0 fL Mean Corpuscular Hemoglobin 25.1 L 28.0-32.0 pg Mean Corpuscular Hemoglobin Concent 31.5 L 32.0-36.0 g/dL Red Cell Distribution Width 23.0 H 11.8-14.3 % Platelet Count 170 140-450 10^3/uL Mean Platelet Volume 9.6 6.9-10.8 fL Neutrophils (%) (Auto) 76.5 37.0-80.0 % Lymphocytes (%) (Auto) 9.5 L 10.0-50.0 % Monocytes (%) (Auto) 11.7 0.0-12.0 % Eosinophils (%) (Auto) 1.1 0.0-7.0 % Basophils (%) (Auto) 1.2 0.0-2.0 % Neutrophils # (Auto) 5.6 1.6-8.6 10 ^3/uL Lymphocytes # (Auto) 0.7 0.4-5.4 10 ^3/uL Monocytes # (Auto) 0.9 0-1.3 10 ^3/uL Eosinophils # (Auto) 0.1 0-0.8 10 ^3/uL Basophils # (Auto) 0.1 0-0.2 10 ^3/uL Nucleated Red Blood Cells 0.4 % D-Dimer, Quantitative 0.47 0.0-0.49 mg/L FEU Sodium Level 137 136-145 mmol/L Potassium Level 3.6 3.5-5.1 mmol/L Chloride Level 105 98-107 mmol/L Carbon Dioxide Level 25 20-31 mmol/L Anion Gap 7 5-15 Blood Urea Nitrogen 11 9-23 mg/dL Creatinine 0.77 0.550-1.02 mg/dL Glomerular Filtration Rate Calc 76 >90 mL/min BUN/Creatinine Ratio 14.3 10.0-20.0 Serum Glucose 98 74-106 mg/dL Calcium Level 8.9 8.7-10.4 mg/dL Total Bilirubin 2.1 H 0.2-1.0 mg/dL Aspartate Amino Transferase (AST) < 8 L 13-40 U/L Alanine Aminotransferase (ALT) < 9 7-40 U/L Alkaline Phosphatase 37 L 46-116 U/L Total Protein 6.2 5.7-8.2 g/dL Albumin 4.1 3.2-4.8 g/dL Urine Color Straw Yellow Urine Clarity Clear Clear Urine pH 6.0 5.0-9.0 Urine Specific [place] 1.009 1.001-1.035 Urine Protein Negative Negative Urine Ketones Negative Negative Urine Blood Negative Negative /uL Urine Nitrite Negative Negative Urine Bilirubin Negative Negative Urine Urobilinogen Normal Negative mg/dL Urine Leukocyte Esterase 1+ Negative /uL Urine RBC None seen 0 - 4 /hpf Urine WBC <1 0 - 5 /hpf Urine Squamous Epithelial Cells Few <5 /hpf Urine Bacteria None seen None Seen /hpf Urine Glucose Normal Normal mg/dL Reticulocyte Count (auto) 2.77 H 0.5-1.5 % Haptoglobin 151 41-333 mg/dL Iron Level 6 L 50-170 ug/dL Total Iron Binding Capacity 409 250-425 ug/dL Percent Iron Saturation 1.5 L 15-50 % Direct Bilirubin 0.2 <0.3 mg/dL Lactate Dehydrogenase 144 120-246 U/L Test 03/02/24 23:50 03/02/24 23:06 03/02/24 22:25 Range/Units Lactic Acid Level 1.3 0.4-2.0 mmol/L Troponin I High Sensitivity 25 </=34 ng/L Platelet Estimate [place] Large Platelets Few Hypochromasia (manual) Moderate Anisocytosis (manual) Slight Microcytosis Slight Ovalocytes Few Stomatocytes Few Prothrombin Time 12.0 H 9.3-11.8 sec Prothrombin Time INR 1.14 0.9-1.15 Activated Partial Thromboplast Time 24.6 24.5-34.5 SEC Magnesium Level 2.2 1.6-2.6 mg/dL B-Type Natriuretic Peptide 593.36 0-100 pg/mL Impression: GI Bleeding on anticoagulation Recommendations: 1. EGD and colonoscopy tomorrow prepped 2. NPO after midnight new line 3. Consent for EGD and colonoscopy RONNELL FLORES MD Mar 04, 2024 20:06
[2024-03-04 22:33] LABS: Basophils # (auto) 0.1 10 ^3/uL (0-0.2); Eosinophils # (auto) 0.1 10 ^3/uL (0-0.8); Eosinophils % (auto) 1.7 % (0.0-7.0); Hematocrit 33.5 % (36.0-46.0); Hemoglobin 10.5 g/dL (12.2-16.2); Lymphocytes # (auto) 0.8 10 ^3/uL (0.4-5.4); Lymphocytes % (auto) 10.6 % (10.0-50.0); Mean Corpuscular Hemoglobin 25.1 pg (28.0-32.0); Mean Corpuscular Hgb Conc. 31.5 g/dL (32.0-36.0); Mean Corpuscular Volume 79.6 fL (80.0-100.0); Monocytes # (auto) 1.1 10 ^3/uL (0-1.3); Monocytes % (auto) 14.5 % (0.0-12.0); Neutrophils # (auto) 5.5 10 ^3/uL (1.6-8.6); Neutrophils % (auto) 72.2 % (37.0-80.0); Nucleated Red Blood Cells % 0.3 %; Platelet Count (auto) 160 10^3/uL (140-450); White Blood Cell 7.6 10^3/uL (4.4-10.8)
[2024-03-04 22:34] LABS: Red Cell Distribution Width 23.3 % (11.8-14.3)
[2024-03-05] VITALS (9 sets, daily range): BP systolic 120–145; BP diastolic 36–97; PULSE 73–139; RESP 16–73; TEMP 97.9–98.1; O2SAT 91–98
[2024-03-05 07:12] LABS: Calcium 8.4 mg/dL (8.7-10.4); Chloride 106 mmol/L (98-107); Potassium 3.5 mmol/L (3.5-5.1); Sodium 140 mmol/L (136-145)
[2024-03-05 07:13] LABS: Anion Gap 6 (5-15); Carbon Dioxide 28 mmol/L (20-31)
[2024-03-05 07:18] LABS: BUN/Creatinine Ratio 7.5 (10.0-20.0); Blood Urea Nitrogen 5 mg/dL (9-23); Glucose 95 mg/dL (74-106)
[2024-03-05] MEDS ORDERED: FLUMAZENIL 0.1 MG/ML INJ 10ML MDV IV ONE (12:00)
[2024-03-05] MEDS ORDERED: NALOXONE HCL 0.4 MG/ML VIAL ONE (12:00)
[2024-03-05] MEDS ORDERED: diphenhdrAMINE HCL 50 MG/1 ML VL ONE (12:01)
[2024-03-05] MEDS ORDERED: LIDOCAINE VISCOUS 2% 15ML UD ONE (12:03)
[2024-03-05] MEDS ORDERED: SIMETHICONE 40 MG/0.6 ML ORAL DROP ONE (12:03)
[2024-03-05] MEDS ORDERED: SODIUM CHLORIDE LOCK 10 ML ONE ×2 (12:07→12:11)
[2024-03-05] MEDS: fentaNYL CITRATE 100 MCG/2 ML VL ONE (12:22)
[2024-03-05] MEDS: MIDAZOLAM HCL 5 MG/ML-1ML VIAL ONE ×2 (12:22→12:31)
--- NOTE | 2024-03-05 12:58 | DVHNC2 ---
Procedure - 03/05/2024 Procedure performed: 1. Esophagogastroduodenoscopy with cold snare polypectomy under conscious sedation 2. Esophagogastroduodenoscopy with Endoclip placement x2 under conscious sedation 3. Incomplete colonoscopy under conscious sedation Pre-procedure diagnosis: 1. History of anticoagulant use 2. Anemia 3. Suspected GI bleed Postprocedure diagnosis: 1. Duodenal polyp removed piecemeal with cold snare 2. Mild erosive gastritis 3. 2 cm hiatal hernia 4. Schatzki's ring 5. Poor colonoscopy preparation Indications for procedure: The patient is a 83-year-old female who presented to the hospital with anemia. She has a history of using anticoagulants. EGD and colonoscopy warranted for evaluation. Details of the procedure: Informed consent was obtained after risks benefits and alternatives were discussed at length with the patient, patient gave consent to the procedure as well as a medication used for sedation. The patient was made aware of the risks of bleeding, infection, perforation, need for emergency surgery, and . Patient was placed in the left lateral decubitus position. An Olympus endoscope was inserted into the oropharynx advanced into the esophagus, then into the duodenal bulb and duodenum. The scope was then withdr awn and mucosa carefully evaluated. The patient had an 8 mm duodenal polyp removed piecemeal with cold snare polypectomy. There may have been some residual polyp but there was oozing of blood. Two Endoclips were placed to control the bleeding and for the mucosal defect. The scope was then withdrawn. Patient had mild erosive gastritis. No biopsies were taken given the oozing f rom the cold snare polypectomy. Retroflexion showed a small hiatal hernia measuring 2 cm. The scope was then withdrawn. The Z-line was at 37 cm. The patient had a Schatzki's ring. The scope was then withdrawn and procedure completed the patient tolerated the procedure well. The patient remained in the left lateral decubitus position. Digital rectal exam showed no abnormalities. An Olympus variable torsion 180 pediatric colonoscope was inserted into the rectum and advanced to the sigmoid. The patient had solid stool. The scope was then withdrawn and the procedure terminated due to poor prep. Impression: 1. History of anemia on Eliquis, suspected GI bleed. Endoscopy showed duodenal polyp and mild erosive gastritis, a hiatal hernia and a Schatzki's ring. 2. Please colonoscopy due to poor prep Recommendations: 1. We will give the patient more prep either GoLYTELY or enemas and reschedule colonoscopy tomorrow 2. Patient will need repeat endoscopy for surveillance of the polyp off of her anticoagulation in 3 months 3. Continue to hold anticoagulants 4. Follow H&H 5. Anti-reflux precautions 6. Protonix daily Thank you for allowing me to participate in the care of this patient. RONNELL FLORES MD Mar 05, 2024 12:58
[2024-03-05] MEDS: FLEET ENEMA(ADULT) 135 ML PR ONE ×2 (21:17→22:12)
[2024-03-06] VITALS (7 sets, daily range): BP systolic 107–151; BP diastolic 31–73; PULSE 72–103; RESP 16–18; TEMP 97.9–98.3; O2SAT 90–95
[2024-03-06 05:46] LABS: Calcium 8.3 mg/dL (8.7-10.4); Chloride 107 mmol/L (98-107); Potassium 3.5 mmol/L (3.5-5.1); Sodium 139 mmol/L (136-145)
[2024-03-06 05:47] LABS: Anion Gap 7 (5-15); Carbon Dioxide 25 mmol/L (20-31)
[2024-03-06 05:52] LABS: BUN/Creatinine Ratio 8.3 (10.0-20.0); Blood Urea Nitrogen 5 mg/dL (9-23); Glucose 90 mg/dL (74-106)
[2024-03-06] MEDS: FLEET ENEMA(ADULT) 135 ML PR ONE (06:13)
[2024-03-06] MEDS ORDERED: SODIUM CHLORIDE LOCK 10 ML ONE (09:49)
[2024-03-06] MEDS: fentaNYL CITRATE 100 MCG/2 ML VL ONE (11:03)
[2024-03-06] MEDS: MIDAZOLAM HCL 5 MG/ML-1ML VIAL ONE (11:03)
[2024-03-06] MEDS: MIDAZOLAM HCL 2MG/2ML 2ml VIAL (1mg/ml) ONE (11:12)
--- NOTE | 2024-03-06 11:36 | DVHNC2 ---
Procedure - Date of procedure: 03/06/2024 PROCEDURE PERFORMED BY: Dr. Ronnell Kaur PROCEDURE PERFORMED: 1.Colonoscopy with moderate sedation REFERRING PROVIDER: Dr. Duque PRE-PROCEDURE DIAGNOSIS: Anemia. 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 Patient gave consent to the procedure as well as the medication used for sedation. The patient was placed in the left lateral decubitus position. Digital rectal exam showed internal hemorrhoids. An Olympus variable torsion pediatric colonoscope was inserted into the rectum advanced to the cecum. The cecum was identified by the ileocecal valve and the appendiceal orifice. The scope was then withdrawn.The prep was fair with poor prep in the right colon. There was a 6x5 cm mass in the ascending colon extending into the cecum. biopsies were taken . Patient had severe left-sided diverticulosis. Retroflexion showed 1+ internal hemorrhoids. More than 6 minutes withdrawal time was noted. The patient tolerated the procedure well. IMPRESSION: 1. mass in the ascending colon and cecum 2.diverticulosis and hemorrhoids RECOMMENDATIONS: 1. patient needs malignancy workup 2.ct scan chest and abdomen and pelvis with contrast 3.diet as tolerated 4.oncology and surgery evaluation 5.serum cea 6.cont to hold blood thinners for now RONNELL KAUR MD Mar 06, 2024 11:36
--- NOTE | 2024-03-06 13:14 | DVHPN2 ---
Progress Note Date Seen: Mar 06, 2024 Has the PT tested + for MRSA If YES, has PT been informed?: No Medical Necessity Reason Pt with a Central, PICC or Fol: No Subjective Patient reports: No new complaints Objective vital signs Vital Sign Date Time Temp Pulse Resp B/P (MAP) Pulse Ox O2 Delivery O2 Flow Rate FiO2 03/06/24 11:30 Mask 10.0 03/06/24 09:00 98.1 91 18 151/73 (99) 95 98.1 03/06/24 08:00 21 Total Intake and Output 03/05/24 03/05/24 03/06/24 14:59 22:59 06:59 Intake Total 650 ml 0 ml Balance 650 ml 0 ml medications Current Medications Medications Dose Ordered Sig/Wm Route Start Time Stop Time Status Last Admin Dose Admin Ondansetron HCl 4 mg Q4HP PRN IV 03/03/24 00:15 03/03/24 18:33 4 MG Morphine Sulfate 2 mg Q4HPRN PRN IV 03/03/24 00:15 Nitroglycerin 0.4 mg Q5MINP PRN SL 03/03/24 00:15 Morphine Sulfate 2 mg Q30M PRN IV 03/03/24 00:15 Pantoprazole Sodium 40 mg DAILY IV 03/03/24 10:00 03/06/24 09:12 40 MG Examination: GENERAL:Normal, LUNGS:Normal, ABDOMEN:Abnormal laboratory and microbiology Laboratory Tests 03/06/24 05:15 03/04/24 21:48 Test 03/06/24 05:15 Range/Units Serum Glucose 90 74-106 mg/dL Problem List/Assessment/Plan Problem List/Assessment/Plan 1) Colonic mass as noted on colonoscopy 2) Anemia 2/2 GI bleed s/p 4 units PRBCs 3) HTN 4) HLD 5) H/O DVT plan; Hgb stable this AM 10.5, EGD done yesterday shoes erosive gastritis, schatzki ring and duodenal polyp that was removed, colonoscopy done today showed colonic mass extending to cecum, will consult surgery and oncology, CT chest/abd/pelvis, daily labs, will follow Plan discussed with: Other (n) BRANDAN CHAO MD Mar 06, 2024 13:14
--- NOTE | 2024-03-06 20:46 | DVHINCON2 ---
DATE OF CONSULTATION: 03/06/2024 REQUESTING PHYSICIAN: Dr. Farah. CONSULTING PHYSICIAN: Luis Eduardo Chakraborty MD. REASON FOR CONSULTATION: Ascending colon neoplasm. HISTORY OF PRESENT ILLNESS: The patient is an unfortunate 83-year-old female who came to the Emergency Department secondary to dizziness, weakness, shortness of breath, occasional episode of chest pain and dyspnea upon exertion. The patient stated that she has been on iron for over a year for anemia. She admitted to black colored stools. She also admits to being on Eliquis for history of DVT 3 years ago. She has not had a colonoscopy since the anemia identified. She denied fevers, chills, hemoptysis, hematemesis, bilious emesis, unintentional weight loss, night sweats, or hematochezia. PAST MEDICAL HISTORY: Significant for hypertension, hyperlipidemia, osteoporosis and DVT. PAST SURGICAL HISTORY: Bilateral total hip replacement, bladder lift, tonsillectomy, appendectomy, hysterectomy. MEDICATIONS: She was taking Eliquis, ferrous sulfate. She admitted also taking antihypertensive and hyperlipidemic and medication for osteoporosis. She does not recall the names. ALLERGIES: No known drug allergies. SOCIAL HISTORY: Admits to occasional glass of wine. Denies smoking cigarettes, drug use, marijuana use or vaping. FAMILY HISTORY: Unspecified history of cancer by her father. REVIEW OF SYSTEMS: NEURO: Negative. PSYCHIATRIC: Negative. ENDOCRINE: Negative. ENT: Negative. CARDIOVASCULAR: Negative. PULMONARY: Negative. GASTROINTESTINAL: As above. GENITOURINARY: Negative. HEMATOLOGY/INFECTIOUS DISEASE: As above. MUSCULOSKELETAL: Negative. SKIN: Negative. PHYSICAL EXAMINATION: GENERAL: She is lying comfortably in bed. She is calm, pleasant and in no distress. She is afebrile with stable vital signs. NEUROLOGIC: Grossly intact, alert, awake and oriented x3. HEAD, EARS, EYES, NOSE AND THROAT: Normocephalic. Pupils are equally round. Extraocular muscles are intact. Trachea is midline. HEART: Normal heart rate and essentially normal blood pressure with a low diastolic pressure. LUNGS: Effortless breathing. Normal oxygen saturation and respiratory rate. ABDOMEN: Soft, obese, nondistended and nontender. Well-healed infraumbilical midline scar. No palpable masses, hernias or visceromegaly, however, her body habitus hinders examination. EXTREMITIES: No edema or tenderness. LABORATORY DATA: I reviewed her labs demonstrated a white blood cell count of 7.4, hemoglobin 10.3, hematocrit 32.2, platelets 161. On admission hemoglobin of 3.8 with hematocrit of 13. Her most recent CBC demonstrated a hemoglobin of 10.5 with hematocrit 33.5. Chemistry is essentially unremarkable. Coagulation parameters are within normal limits. CT scan of the abdomen and pelvis was reviewed with corresponding report. There is evidence of a neoplastic process involving the cecum/ascending colon. There is also an IVC filter in place. Some coronary artery atherosclerosis. No liver lesions. Bilateral hip prostheses. The radiologist did not identify any abnormalities in the cecum; however, it appears evident that there is a lesion in the cecum. GI report was reviewed demonstrating a lesion in the cecum and ascending colon. 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 PLANS AND RECOMMENDATIONS: I had a lengthy discussion with the patient and recommended a laparoscopic, possible open right hemicolectomy. The procedure, risks and benefits were explained in a detailed and extensive fashion. She was made aware of potential complications such as bleeding, infection, need for additional procedures, injury to internal organs, blood vessels and/or nerves, incisional hernias, future bowel obstruction, anastomotic leak, undecided cosmetic results, blood clots in leg/lungs, heart attack, stroke and/or . All questions were answered. She understands and agrees to proceed. In order for the patient to undergo the procedure, should undergo a preoperative cardiology evaluation. She will be tentatively scheduled for Wednesday. Thank you for allowing me to participate in the care of your patient. I will follow her with you. MD AURELIO Arteaga/JOVANNI TID: [id number] RECEIPT: [id number]
--- NOTE | 2024-03-06 23:44 | DVHINCON2 ---
Date of service: Mar 06, 2024 Referring Physician Gagan Reason for Consultation Cardiac clearance History of Present Illness This is a 83 year old female with a PMH of Osteoporosis, hypertension, hyperlipidemia, DVT on Eliquis brought in by ambulance for evaluation of two day history of intermittent chest pain, shortness of breath, dizziness episodes. Patient was going to the bathroom today and she felt dizzy and called 911. On day of admission, symptoms progressively got worse today to a point where she could not even get up to stand or to walk and felt lightheaded to a point that she felt like she was going to syncopize. The patient says that she has had some bright red blood on wiping herself the other day, but no other occasion that she had noticed any tarry or bloody stools in the last month. Patient was admitted for GI bleed. Patient underwent colonoscopy which showed a mass. I am asked to consult on this patient for cardiac clearance. Family History: FH: dementia Allergies: Coded Allergies: NO KNOWN ALLERGIES (Unverified , 03/02/24) Home Meds Reported Medications Latanoprost (LATANOPROST) 0.005 % Cecilia, 1 DROP EACHEYE QPM, #2.5 ML 6 Refills 03/03/24 Alendronate Sodium (Alendronate Sodium) 35 Mg Tab, 1 TAB PO QWEEKLY, #4 TAB 11 Refills 03/03/24 Lorazepam (ATIVAN TABLET) 0.5 Mg Tb, 1 TAB PO TID, #90 TAB 03/03/24 Omeprazole (Gnp Omeprazole) 20 Mg Tab, 1 TAB PO DAILY, #90 TAB 1 Refill 03/03/24 Lovastatin (Lovastatin) 40 Mg Tab, 1 TAB PO DAILY, #30 TAB 5 Refills 03/03/24 Metoprolol Tartrate (Lopressor) 25 Mg Tb, 25 MG PO Q12HR, TAB 0 Refills 03/03/24 Apixaban Base (ELIQUIS) 5 Mg Tab, 5 MG PO BID, TAB 03/03/24 Review of Systems CONSTITUTIONAL: Denies acute: fever, diaphoresis, chills, HEAD: Denies acute: headache, photophobia Eyes: Denies acute: Double vision, vision loss, eye pain, eye discharge. EARS: Denies acute: tinnitus, hearing loss, ear discharge, ear pain, THROAT: Denies acute: sore throat, swelling, difficulty swallowing , pain with swa llowing, change in voice. NECK: Denies acute: neck pain, neck swelling, stiff neck. HEART: Denies acute : palpitations, LUNGS: Denies acute: wheezing, cough, hemoptysis ABDOMEN: Denies acute: abdominal pain, Nausea, Vomiting, diarrhea, melena , hematemesis, hematochezia SKIN: Denies acute: rash, redness, lesions, itchiness. EXTREMITIES: Denies acute: calf pain, numbness, tingling, weakness, denies pain in extremity. Denies acute: Low back pain. Neuro: Denies acute: focal neurological deficit, motor or sensory focal neurological deficit, tremors, seizure like activity, confusion, change in mental status, loss of bowel or bladder function, cauda equina like symptoms. : Denies acute: dysuria, hematuria, flank pain, increase in urinary frequency PSYCH: Denies acute: hallucination, suicidal ideation, homicidal ideation. FEMALE: Denies acute: abnormal vaginal bleeding, foul odor, unusual discharge. Vital Signs Vital Signs Date Time Temp Pulse Resp B/P (MAP) Pulse Ox O2 Delivery O2 Flow Rate FiO2 03/06/24 21:00 98.3 88 17 135/56 (82) 91 98.3 03/06/24 20:00 Room Air* 0 21 Physical Exam GENERAL: Awake, alert, oriented. LUNGS: Clear. CARDIOVASCULAR: Heart sounds are good. ABDOMEN: Soft. Labs/Diagnostic Data Labs Test 03/06/24 05:15 03/04/24 21:48 03/03/24 09:35 03/03/24 00:29 Range/Units Sodium Level 139 136-145 mmol/L Potassium Level 3.5 3.5-5.1 mmol/L Chloride Level 107 98-107 mmol/L Carbon Dioxide Level 25 20-31 mmol/L Anion Gap 7 5-15 Blood Urea Nitrogen 5 L 9-23 mg/dL Creatinine 0.60 0.550-1.02 mg/dL Glomerular Filtration Rate Calc 89 >90 mL/min BUN/Creatinine Ratio 8.3 L 10.0-20.0 Serum Glucose 90 74-106 mg/dL Calcium Level 8.3 L 8.7-10.4 mg/dL White Blood Count 7.6 4.4-10.8 10^3/uL Red Blood Count 4.20 4.0-5.20 10^6/uL Hemoglobin 10.5 L 12.2-16.2 g/dL Hematocrit 33.5 L 36.0-46.0 % Mean Corpuscular Volume 79.6 L 80.0-100.0 fL Mean Corpuscular Hemoglobin 25.1 L 28.0-32.0 pg Mean Corpuscular Hemoglobin Concent 31.5 L 32.0-36.0 g/dL Red Cell Distribution Width 23.3 H 11.8-14.3 % Platelet Count 160 140-450 10^3/uL Mean Platelet Volume 9.4 6.9-10.8 fL Neutrophils (%) (Auto) 72.2 37.0-80.0 % Lymphocytes (%) (Auto) 10.6 10.0-50.0 % Monocytes (%) (Auto) 14.5 H 0.0-12.0 % Eosinophils (%) (Auto) 1.7 0.0-7.0 % Basophils (%) (Auto) 1.0 0.0-2.0 % Neutrophils # (Auto) 5.5 1.6-8.6 10 ^3/uL Lymphocytes # (Auto) 0.8 0.4-5.4 10 ^3/uL Monocytes # (Auto) 1.1 0-1.3 10 ^3/uL Eosinophils # (Auto) 0.1 0-0.8 10 ^3/uL Basophils # (Auto) 0.1 0-0.2 10 ^3/uL Nucleated Red Blood Cells 0.3 % D-Dimer, Quantitative 0.47 0.0-0.49 mg/L FEU Total Bilirubin 2.1 H 0.2-1.0 mg/dL Aspartate Amino Transferase (AST) < 8 L 13-40 U/L Alanine Aminotransferase (ALT) < 9 7-40 U/L Alkaline Phosphatase 37 L 46-116 U/L Total Protein 6.2 5.7-8.2 g/dL Albumin 4.1 3.2-4.8 g/dL Urine Color Straw Yellow Urine Clarity Clear Clear Urine pH 6.0 5.0-9.0 Urine Specific [place] 1.009 1.001-1.035 Urine Protein Negative Negative Urine Ketones Negative Negative Urine Blood Negative Negative /uL Urine Nitrite Negative Negative Urine Bilirubin Negative Negative Urine Urobilinogen Normal Negative mg/dL Urine Leukocyte Esterase 1+ Negative /uL Urine RBC None seen 0 - 4 /hpf Urine WBC <1 0 - 5 /hpf Urine Squamous Epithelial Cells Few <5 /hpf Urine Bacteria None seen None Seen /hpf Urine Glucose Normal Normal mg/dL Test 03/03/24 00:25 03/02/24 23:50 03/02/24 23:06 03/02/24 22:25 Range/Units Reticulocyte Count (auto) 2.77 H 0.5-1.5 % Haptoglobin 151 41-333 mg/dL Iron Level 6 L 50-170 ug/dL Total Iron Binding Capacity 409 250-425 ug/dL Percent Iron Saturation 1.5 L 15-50 % Direct Bilirubin 0.2 <0.3 mg/dL Lactate Dehydrogenase 144 120-246 U/L Lactic Acid Level 1.3 0.4-2.0 mmol/L Troponin I High Sensitivity 25 </=34 ng/L Platelet Estimate [place] Large Platelets Few Hypochromasia (manual) Moderate Anisocytosis (manual) Slight Microcytosis Slight Ovalocytes Few Stomatocytes Few Prothrombin Time 12.0 H 9.3-11.8 sec Prothrombin Time INR 1.14 0.9-1.15 Activated Partial Thromboplast Time 24.6 24.5-34.5 SEC Magnesium Level 2.2 1.6-2.6 mg/dL B-Type Natriuretic Peptide 593.36 0-100 pg/mL Assessment Colonic mass found on colonoscopy. GI Bleed. Anemia. HTN. HLD. H/O DVT. Plan/Recommendation I agree with your ongoing assessment and care of plan. Patient is cardiac cleared for surgery. Low Risk. Echocardiogram. GI prophylactics. Morphine for pain management. Additional plan as per the hospital course. A total of 45 minutes was spent reviewing the patient record, examining the patient, making a diagnostic and therapeutic plan, discussing this plan with medical personnel, following up on diagnostic studies and following the patient for clinical stability excluding any and all procedures. At least 50% of this time was spent in direct, [id number] contact. Plan discussed with: Patient MARIANGEL SHOEMAKER MD Mar 06, 2024 23:44
[2024-03-07] VITALS (8 sets, daily range): BP systolic 130–154; BP diastolic 52–76; PULSE 80–92; RESP 16–19; TEMP 97.9–98.5; O2SAT 92–95
--- NOTE | 2024-03-07 06:54 | DVHPN2 ---
Progress Note Date Seen: Mar 07, 2024 Has the PT tested + for MRSA If YES, has PT been informed?: No Medical Necessity Reason Pt with a Central, PICC or Fol: No Subjective Patient reports: No new complaints Review of Systems: HEENT:Normal, CVS:Normal, RESPIRATORY:Normal, GI:Abnormal Objective vital signs Vital Sign Date Time Temp Pulse Resp B/P (MAP) Pulse Ox O2 Delivery O2 Flow Rate FiO2 03/07/24 05:05 97.9 84 16 137/53 (81) 94 97.9 03/06/24 20:00 Room Air* 0 21 Total Intake and Output 03/06/24 03/06/24 03/07/24 15:00 23:00 07:00 Intake Total 50 ml 0 ml 1030 ml Balance 50 ml 0 ml 1030 ml medications Current Medications Medications Dose Ordered Sig/Wm Route Start Time Stop Time Status Last Admin Dose Admin Ondansetron HCl 4 mg Q4HP PRN IV 03/03/24 00:15 03/03/24 18:33 4 MG Morphine Sulfate 2 mg Q4HPRN PRN IV 03/03/24 00:15 Nitroglycerin 0.4 mg Q5MINP PRN SL 03/03/24 00:15 Morphine Sulfate 2 mg Q30M PRN IV 03/03/24 00:15 Pantoprazole Sodium 40 mg DAILY IV 03/03/24 10:00 03/06/24 09:12 40 MG Examination: GENERAL:Normal, LUNGS:Normal, CVS:Normal, ABDOMEN:Abnormal, SKIN:Normal laboratory and microbiology Test 03/07/24 05:41 Range/Units Serum Glucose Pending Problem List/Assessment/Plan Problem List/Assessment/Plan 1) Colonic mass as noted on colonoscopy 2) Anemia 2/2 GI bleed s/p 4 units PRBCs 3) HTN 4) HLD 5) H/O DVT plan; EGD done 03/05 shows erosive gastritis, schatzki ring and duodenal polyp that was removed, colonoscopy done 03/06 showed colonic mass extending to cecum, surgery planning for R hemicolectomy this wednesday, patient cleared by cardiology for surgery, oncology on board, daily labs, will follow, full code Plan discussed with: Other (n) Dietary Evaluation Review Comments: Advance to diet as tolerated after the GI procedures. Monitor PO intake to meet 75% of her needs Expected Outcomes/Goals: maintain weight. BRANDAN CHAO MD Mar 07, 2024 06:54
[2024-03-07 07:08] LABS: Chloride 108 mmol/L (98-107); Potassium 3.6 mmol/L (3.5-5.1); Sodium 140 mmol/L (136-145)
[2024-03-07 07:09] LABS: Anion Gap 6 (5-15); Calcium 8.7 mg/dL (8.7-10.4); Carbon Dioxide 26 mmol/L (20-31)
[2024-03-07 07:14] LABS: BUN/Creatinine Ratio 8.2 (10.0-20.0); Basophils # (auto) 0.1 10 ^3/uL (0-0.2); Basophils % (auto) 1.4 % (0.0-2.0); Blood Urea Nitrogen < 5 mg/dL (9-23); Eosinophils # (auto) 0.2 10 ^3/uL (0-0.8); Eosinophils % (auto) 3.8 % (0.0-7.0); Glucose 87 mg/dL (74-106); Lymphocytes # (auto) 0.5 10 ^3/uL (0.4-5.4); Monocytes # (auto) 0.6 10 ^3/uL (0-1.3); Neutrophils # (auto) 3.4 10 ^3/uL (1.6-8.6); Neutrophils % (auto) 71.6 % (37.0-80.0); White Blood Cell 4.7 10^3/uL (4.4-10.8)
[2024-03-07 07:17] LABS: Hematocrit 32.3 % (36.0-46.0); Hemoglobin 9.9 g/dL (12.2-16.2); Lymphocytes % (auto) 9.9 % (10.0-50.0); Mean Corpuscular Hgb Conc. 30.6 g/dL (32.0-36.0); Mean Corpuscular Volume 81.9 fL (80.0-100.0); Monocytes % (auto) 13.3 % (0.0-12.0); Platelet Count (auto) 160 10^3/uL (140-450); Red Blood Cells 3.95 10^6/uL (4.0-5.20); Red Cell Distribution Width 24.6 % (11.8-14.3)
[2024-03-07] MEDS: GASTROGRAFIN 30 ML SOL ONE (08:03)
[2024-03-07] MEDS: IOHEXOL 300 MG/ML 100ML BOTTLE IJ ONE (08:03)
--- NOTE | 2024-03-07 08:45 | DVHPN2 ---
Progress Note - Dictate Date Seen: Mar 07, 2024 Has the PT tested + for MRSA If YES, has PT been informed?: Yes Medical Necessity Reason Pt with a Central, PICC or Fol: No Subjective Patient is found to have a ascending colon mass going up to the cecum and the biopsies done and very suspicious for cancer. And the patient is planned to have surgery vital signs Vital Sign Date Time Temp Pulse Resp B/P (MAP) Pulse Ox O2 Delivery O2 Flow Rate FiO2 03/07/24 08:33 98.1 82 19 154/76 (102) 95 98.1 03/06/24 20:00 Room Air* 0 21 Total Intake and Output 03/06/24 03/06/24 03/07/24 15:00 23:00 07:00 Intake Total 50 ml 0 ml 1030 ml Balance 50 ml 0 ml 1030 ml medications Current Medications Medications Dose Ordered Sig/Wm Route Start Time Stop Time Status Last Admin Dose Admin Ondansetron HCl 4 mg Q4HP PRN IV 03/03/24 00:15 03/03/24 18:33 4 MG Morphine Sulfate 2 mg Q4HPRN PRN IV 03/03/24 00:15 Nitroglycerin 0.4 mg Q5MINP PRN SL 03/03/24 00:15 Morphine Sulfate 2 mg Q30M PRN IV 03/03/24 00:15 Pantoprazole Sodium 40 mg DAILY IV 03/03/24 10:00 03/06/24 09:12 40 MG objective Head and neck: Unremarkable for any masses or neck nodes. Lungs: Clear Cardiovascular: Regular sinus rhythm Abdomen: No organomegaly, tenderness or ascites. Bowel sounds are present. Extremities: No clubbing edema cyanosis or calf tenderness. Skin: Unremarkable for petechia purpura ecchymosis Lymphadenopathy: None laboratory and microbiology Laboratory Tests 03/07/24 05:41 Test 03/07/24 05:41 Range/Units Serum Glucose 87 74-106 mg/dL Assessment/Plan 1. Microcytic hypochromic anemia consistent with iron deficiency, rule out GI bleeding, 03/06/2024: Colonoscope done showed a mass in the ascending colon and cecum. Diverticulosis and hemorrhoids CT of the abdomen and pelvis was otherwise unremarkable was done with contrast oral and IV 2. History of leg DVT after a left hip fracture 3 years back and has been on Eliquis. Was provoked DVT. And of the Eliquis is on hold 3. History of hypertension 4. High cholesterol 5. History of hysterectomy Plan: A CT of the chest with IV contrast CEA The patient is planned to have surgery done Patient is advised to call my office and come for a follow up after surgery Dietary Evaluation Review Comments: Advance to diet as tolerated after the GI procedures. Monitor PO intake to meet 75% of her needs Expected Outcomes/Goals: maintain weight. Plan discussed with: Patient CALOS OLVERA MD Mar 07, 2024 08:45
--- NOTE | 2024-03-07 11:39 | DVH ---
Exam: CT CT CHST AB PLV W CON-ORAL IV History: malignancy, colon mass Comparison Study: 03/03/2024 TECHNIQUE: Axial CT images of the chest, abdomen and pelvis were obtained. These images were reformat salma degenerate coronal and sagittal reconstructions. 100 cc of Omnipaque 300 contrast was injected in travenously. All CT scans at this medical facility are performed using dose modulation techniques as appropriate t o a performed exam including the following:Automated exposure control was utilized; adjustment of the MA and/or KV according to patient size; and use of iterative reconstruction technique. Radiation Dose Information: CT Dose: CTDI volume is 13.81 mGy. Dose-length product is 1034.12 mGy*cm FINDINGS: There are bilateral pleural effusions which appear increased in size in comparison to the prior stud y. There is atelectasis versus airspace disease in the bilateral posterior lower lobes. There is no e vidence of pneumothorax. There is no evidence of a suspicious appearing pulmonary nodule or mass. There is no evidence of mediastinal mass or lymphadenopathy. There is no hilar or axillary lymphaden opathy. The heart size is within normal limits. There is no pericardial effusion. There are few scattered tiny hepatic and splenic cysts . The gallbladder is distended without evidenc e of radiopaque gallstones. There is stable left renal cysts . There is no evidence of nephrolithias is or hydronephrosis. The pancreas, adrenal glands, appear within normal limits. There is no evidence of abdominal lymphadenopathy. There is no free fluid or free air. The small and large bowel loops demonstrate normal caliber. There are multiple diverticula in the di stal colon without evidence of acute diverticulitis. There is an IVC filter in place. The abdominal aorta appears unremarkable. The bladder appears unremarkable. Uterus is surgically absent. There is no evidence of a pelvic mass or lymphadenopathy. There is no free fluid collection. There is no acute osseous abnormality. There are bilateral hip arthroplasties. There are multilevel degenerative changes in the spine. IMPRESSION: 1. Bilateral pleural effusions which appear increased in size in comparison to prior study. There is atelectasis versus airspace disease in the bilateral posterior lower lobes.. 2. Distended gallbladder without evidence of radiopaque gallstones. 3. Distal colon diverticulosis. HS:Y
--- NOTE | 2024-03-07 17:04 | DVHPN2 ---
Progress Note Date Seen: Mar 07, 2024 Has the PT tested + for MRSA If YES, has PT been informed?: Yes Medical Necessity Reason Pt with a Central, PICC or Fol: No Subjective Review of Systems Pt feels well. No complaints. Objective vital signs Vital Sign Date Time Temp Pulse Resp B/P (MAP) Pulse Ox O2 Delivery O2 Flow Rate FiO2 03/07/24 12:30 98.5 90 17 141/70 (93) 95 98.5 03/07/24 08:00 Room Air* 0 21 Total Intake and Output 03/06/24 03/06/24 03/07/24 15:00 23:00 07:00 Intake Total 50 ml 0 ml 1030 ml Balance 50 ml 0 ml 1030 ml medications Current Medications Medications Dose Ordered Sig/Wm Route Start Time Stop Time Status Last Admin Dose Admin Ondansetron HCl 4 mg Q4HP PRN IV 03/03/24 00:15 03/03/24 18:33 4 MG Morphine Sulfate 2 mg Q4HPRN PRN IV 03/03/24 00:15 Nitroglycerin 0.4 mg Q5MINP PRN SL 03/03/24 00:15 Morphine Sulfate 2 mg Q30M PRN IV 03/03/24 00:15 Pantoprazole Sodium 40 mg DAILY IV 03/03/24 10:00 03/07/24 10:07 40 MG Examination AFVSS. Abdomen soft, ND and NT laboratory and microbiology Laboratory Tests 03/07/24 05:41 Test 03/07/24 05:41 Range/Units Serum Glucose 87 74-106 mg/dL Labs and/or images reviewed: Labs reviewed by me Problem List/Assessment/Plan Problems(with codes): (1) Colon cancer (2) Symptomatic anemia Problem List/Assessment/Plan Pt scheduled fro Lap possible open RHC. Procedure explained again with inherent risks and benefits. She understood and agreed to proceed. Plan discussed with: Patient My Orders My Orders Orders - SUBHASH DELGADO MD Procedure Category Date Status Time Obtain Consent For: ORDERS 03/07/24 Transmitted 16:37 Obtain Consent For KOLBY 03/08/24 In Process Anesthesia 16:37 Npo After Midnight DIET 03/07/24 Transmitted Dinner Dietary Evaluation Review Comments: Advance to diet as tolerated after the GI procedures. Monitor PO intake to meet 75% of her needs Expected Outcomes/Goals: maintain weight. SUBHASH DELGADO MD Mar 07, 2024 17:04
--- NOTE | 2024-03-07 18:28 | DVHPN2 ---
Progress Note - Dictate Date Seen: Mar 07, 2024 Has the PT tested + for MRSA If YES, has PT been informed?: Yes Medical Necessity Reason Pt with a Central, PICC or Fol: No Subjective Patient was seen and evaluated in follow up. No overnight events. Patient is found to have a ascending colon mass going up to the cecum and the biopsies done and very suspicious for cancer. Pending possible RHC. Carcinoembryonic Ag 2.67. Echocardiogram is pending. vital signs Vital Sign Date Time Temp Pulse Resp B/P (MAP) Pulse Ox O2 Delivery O2 Flow Rate FiO2 03/07/24 17:00 98.2 89 18 130/72 (91) 93 98.2 03/07/24 08:00 Room Air* 0 21 Total Intake and Output 03/06/24 03/06/24 03/07/24 15:00 23:00 07:00 Intake Total 50 ml 0 ml 1030 ml Balance 50 ml 0 ml 1030 ml medications Current Medications Medications Dose Ordered Sig/Wm Route Start Time Stop Time Status Last Admin Dose Admin Ondansetron HCl 4 mg Q4HP PRN IV 03/03/24 00:15 03/03/24 18:33 4 MG Morphine Sulfate 2 mg Q4HPRN PRN IV 03/03/24 00:15 Nitroglycerin 0.4 mg Q5MINP PRN SL 03/03/24 00:15 Morphine Sulfate 2 mg Q30M PRN IV 03/03/24 00:15 Pantoprazole Sodium 40 mg DAILY IV 03/03/24 10:00 03/07/24 10:07 40 MG objective GENERAL: Awake, alert, oriented. LUNGS: Clear. CARDIOVASCULAR: Heart sounds are good. ABDOMEN: Soft. laboratory and microbiology Laboratory Tests 03/07/24 05:41 Test 03/07/24 05:41 Range/Units Serum Glucose 87 74-106 mg/dL Problem List Colonic mass found on colonoscopy. GI Bleed. Anemia. HTN. HLD. H/O DVT. Assessment/Plan Continued all current supportive medical care. GI prophylactics. Morphine for pain management. Additional plan as per the hospital course. Dietary Evaluation Review Comments: Advance to diet as tolerated after the GI procedures. Monitor PO intake to meet 75% of her needs Expected Outcomes/Goals: maintain weight. Plan discussed with: Patient MARIANGEL SHOEMAKER MD Mar 07, 2024 18:28
--- NOTE | 2024-03-07 19:56 | DVHPN2 ---
Progress Note - Dictate Date Seen: Mar 07, 2024 Has the PT tested + for MRSA If YES, has PT been informed?: Yes Medical Necessity Reason Pt with a Central, PICC or Fol: No Subjective Pt signed out to me by Dr Joo Kaur No new complaints Patient S/P CT scan chest abdomen pelvis No evidence of metastatic disease CEA level normal Patient has bibasilar atelectasis with pleural effusions vital signs Vital Sign Date Time Temp Pulse Resp B/P (MAP) Pulse Ox O2 Delivery O2 Flow Rate FiO2 03/07/24 17:00 98.2 89 18 130/72 (91) 93 98.2 03/07/24 08:00 Room Air* 0 21 Total Intake and Output 03/06/24 03/06/24 03/07/24 15:00 23:00 07:00 Intake Total 50 ml 0 ml 1030 ml Balance 50 ml 0 ml 1030 ml medications Current Medications Medications Dose Ordered Sig/Wm Route Start Time Stop Time Status Last Admin Dose Admin Ondansetron HCl 4 mg Q4HP PRN IV 03/03/24 00:15 03/03/24 18:33 4 MG Morphine Sulfate 2 mg Q4HPRN PRN IV 03/03/24 00:15 Nitroglycerin 0.4 mg Q5MINP PRN SL 03/03/24 00:15 Morphine Sulfate 2 mg Q30M PRN IV 03/03/24 00:15 Pantoprazole Sodium 40 mg DAILY IV 03/03/24 10:00 03/07/24 10:07 40 MG objective Alert elderly female lying in bed no distress HEENT: Pale conjunctiva, otherwise normocephalic atraumatic extraocular movements are intact Heart: Regular rate and rhythm Abdomen: Soft mild tenderness to palpation Extremity no clubbing cyanosis or edema laboratory and microbiology Laboratory Tests 03/07/24 05:41 Test 03/07/24 05:41 Range/Units Serum Glucose 87 74-106 mg/dL Problems(with codes): (1) Colon cancer (2) Chest pain (3) Symptomatic anemia (4) Ascending colon malignant neoplasm Prognosis Plan Patient is scheduled for a laparoscopic versus open right hemicolectomy on 03/08/2024 Preop preparation and management as per surgical consult Appreciate surgical, Oncology, Cardiology consults Dietary Evaluation Review Comments: Advance to diet as tolerated after the GI procedures. Monitor PO intake to meet 75% of her needs Expected Outcomes/Goals: maintain weight. Plan discussed with: Other (Dr Lorraine kaur) HORTENSIA FERRARO MD Mar 07, 2024 19:56
[2024-03-08] VITALS (42 sets, daily range): BP systolic 59–176; BP diastolic 43–76; PULSE 74–104; RESP 9–22; TEMP 96.3–99.3; O2SAT 86–100
--- NOTE | 2024-03-08 06:56 | DVHPN2 ---
Progress Note Date Seen: Mar 08, 2024 Has the PT tested + for MRSA If YES, has PT been informed?: Yes Medical Necessity Reason Pt with a Central, PICC or Fol: No Subjective Patient reports: No new complaints Review of Systems: GI:Abnormal Objective vital signs Vital Sign Date Time Temp Pulse Resp B/P (MAP) Pulse Ox O2 Delivery O2 Flow Rate FiO2 03/08/24 05:00 97.9 74 18 145/66 (92) 94 97.9 03/07/24 20:30 Room Air* 0 21 Total Intake and Output 03/07/24 03/07/24 03/08/24 15:00 23:00 07:00 Intake Total 354 ml 240 ml Balance 354 ml 240 ml medications Current Medications Medications Dose Ordered Sig/Wm Route Start Time Stop Time Status Last Admin Dose Admin Ondansetron HCl 4 mg Q4HP PRN IV 03/03/24 00:15 03/03/24 18:33 4 MG Morphine Sulfate 2 mg Q4HPRN PRN IV 03/03/24 00:15 Nitroglycerin 0.4 mg Q5MINP PRN SL 03/03/24 00:15 Morphine Sulfate 2 mg Q30M PRN IV 03/03/24 00:15 Pantoprazole Sodium 40 mg DAILY IV 03/03/24 10:00 03/07/24 10:07 40 MG Examination: GENERAL:Normal, LUNGS:Normal, CVS:Normal, ABDOMEN:Abnormal laboratory and microbiology Test 03/08/24 05:42 Range/Units Serum Glucose Pending Problem List/Assessment/Plan Problem List/Assessment/Plan 1) Colonic mass as noted on colonoscopy 2) Anemia 2/2 GI bleed s/p 4 units PRBCs 3) HTN 4) HLD 5) H/O DVT plan; EGD done 03/05 shows erosive gastritis, schatzki ring and duodenal polyp that was removed, colonoscopy done 03/06 showed colonic mass extending to cecum, surgery planning for R hemicolectomy today, patient cleared by cardiology for surgery, oncology on board, daily labs, will follow post-op, supportive care, full code Plan discussed with: Other (n) Dietary Evaluation Review Comments: Advance to diet as tolerated after the GI procedures. Monitor PO intake to meet 75% of her needs Expected Outcomes/Goals: maintain weight. BRANDAN CHAO MD Mar 08, 2024 06:56
[2024-03-08] MEDS: LIDOCAINE 1% HCL (LOCAL ANESTH.) INJ 20ML MDV ONE (07:10)
[2024-03-08] MEDS: LIDOCAINE 2% JELLY 11ml (GLYDO) ONE (07:10)
[2024-03-08] MEDS: BUPIVACAINE 0.5% P/F INJ 10 ML VIAL ONE (07:10)
[2024-03-08 07:16] LABS: Calcium 8.7 mg/dL (8.7-10.4); Chloride 105 mmol/L (98-107); Potassium 3.5 mmol/L (3.5-5.1); Sodium 139 mmol/L (136-145)
[2024-03-08 07:17] LABS: Anion Gap 9 (5-15); Carbon Dioxide 25 mmol/L (20-31)
[2024-03-08 07:22] LABS: Glucose 91 mg/dL (74-106)
[2024-03-08 07:25] LABS: BUN/Creatinine Ratio 9.6 (10.0-20.0); Basophils # (auto) 0.1 10 ^3/uL (0-0.2); Blood Urea Nitrogen < 5 mg/dL (9-23); Eosinophils # (auto) 0.1 10 ^3/uL (0-0.8); Eosinophils % (auto) 3.1 % (0.0-7.0); Lymphocytes # (auto) 0.6 10 ^3/uL (0.4-5.4); Monocytes # (auto) 0.6 10 ^3/uL (0-1.3); Neutrophils # (auto) 3.1 10 ^3/uL (1.6-8.6); Nucleated Red Blood Cells % 0.1 %; White Blood Cell 4.5 10^3/uL (4.4-10.8)
[2024-03-08 07:28] LABS: Basophils % (auto) 1.2 % (0.0-2.0); Hematocrit 31.5 % (36.0-46.0); Hemoglobin 9.9 g/dL (12.2-16.2); Lymphocytes % (auto) 13.2 % (10.0-50.0); Mean Corpuscular Hemoglobin 25.4 pg (28.0-32.0); Mean Corpuscular Hgb Conc. 31.6 g/dL (32.0-36.0); Mean Corpuscular Volume 80.3 fL (80.0-100.0); Monocytes % (auto) 13.1 % (0.0-12.0); Neutrophils % (auto) 69.4 % (37.0-80.0); Platelet Count (auto) 153 10^3/uL (140-450); Red Blood Cells 3.92 10^6/uL (4.0-5.20); Red Cell Distribution Width 25.2 % (11.8-14.3)
[2024-03-08] MEDS: ceFAZolin 2 GM/D5W100ml 100 ML IV ONE (09:42)
[2024-03-08 09:55] LABS: INR 1.13 (0.9-1.15); Partial Thromboplastin Time 28.2 SEC (24.5-34.5); Prothrombin Time 11.9 sec (9.3-11.8)
[2024-03-08 09:55] LABS: Ovalocytes FEW; Platelet Estimate Adequate
[2024-03-08 09:56] LABS: Anisocytosis Moderate
[2024-03-08] MEDS ORDERED: HYDROmorphone HCL 2 MG/ML VL/or syr ONE (10:01)
[2024-03-08] MEDS ORDERED: fentaNYL CITRATE 100 MCG/2 ML VL ONE ×3 (10:01→11:07)
[2024-03-08] MEDS ORDERED: MEPERIDINE HCL (50 MG/ML) 1 ML VIAL ONE (10:02)
[2024-03-08] MEDS ORDERED: MIDAZOLAM HCL 2MG/2ML 2ml VIAL (1mg/ml) ONE (10:02)
[2024-03-08] MEDS ORDERED: DexAMETHasone SOD PHOS 10MG/1ML VIAL INJ ONE (10:03)
[2024-03-08] MEDS: SUCCINYLCHOLINE CHLORIDE 20 MG/ML 10ML VIAL IV ONE (10:04)
[2024-03-08] MEDS ORDERED: fentaNYL CITRATE 100 MCG/2 ML VL IV PRN (11:00)
[2024-03-08] MEDS ORDERED: MORPHINE SULFATE 4 MG/ML SYR/VIAL IV PRN (11:00)
[2024-03-08] MEDS ORDERED: MIDAZOLAM HCL 2MG/2ML 2ml VIAL (1mg/ml) IV PRN (11:00)
[2024-03-08] MEDS ORDERED: ONDANSETRON HCL 4 MG/2 ML VIAL IV ONE (11:00)
[2024-03-08] MEDS ORDERED: HYDROmorphone HCL 2 MG/ML VL/or syr IV PRN (11:00)
[2024-03-08] MEDS ORDERED: ePHEDrine SULFATE 50 MG/ML AMP IV PRN (11:00)
[2024-03-08] MEDS ORDERED: hydrALAZINE HCL 20 MG/ML VL IV PRN (11:00)
[2024-03-08] MEDS: LIDOCAINE 1%HCL (LOCAL ANESTH) 10 ML MDV IJ ONE (11:46)
[2024-03-08] MEDS ORDERED: SUGAMMADEX 200mg/2ml Vial (100MG/ML) IV ONE (12:29)
[2024-03-08] MEDS ORDERED: HYDROcodone-ACET 5/325MG TAB PO PRN (12:45)
[2024-03-08] MEDS ORDERED: HYDROcodone-ACET 10/325MG TAB PO PRN (12:45)
--- NOTE | 2024-03-08 13:30 | DVHPN2 ---
Progress Note - Dictate Date Seen: Mar 08, 2024 Has the PT tested + for MRSA If YES, has PT been informed?: Yes Medical Necessity Reason Pt with a Central, PICC or Fol: No Subjective Patient was seen in recovery room She is S/P laparoscopic right hemicolectomy Final report pending Patient is extubated with sleeping vital signs Vital Sign Date Time Temp Pulse Resp B/P (MAP) Pulse Ox O2 Delivery O2 Flow Rate FiO2 03/08/24 08:41 97.9 81 17 150/64 (92) 93 97.9 03/08/24 07:56 Room Air* 0 21 Total Intake and Output 03/07/24 03/07/24 03/08/24 15:00 23:00 07:00 Intake Total 354 ml 240 ml Balance 354 ml 240 ml medications Current Medications Medications Dose Ordered Sig/Wm Route Start Time Stop Time Status Last Admin Dose Admin Ondansetron HCl 4 mg Q4HP PRN IV 03/03/24 00:15 03/03/24 18:33 4 MG Nitroglycerin 0.4 mg Q5MINP PRN SL 03/03/24 00:15 Morphine Sulfate 2 mg Q30M PRN IV 03/03/24 00:15 Pantoprazole Sodium 40 mg DAILY IV 03/03/24 10:00 03/08/24 08:49 40 MG Morphine Sulfate 2 mg Q2HP PRN IV 03/08/24 12:45 Acetaminophen/ Hydrocodone Bitart 1 tab Q4HPRN PRN PO 03/08/24 12:45 Acetaminophen/ Hydrocodone Bitart 1 tab Q4HP PRN PO 03/08/24 12:45 Cefoxitin Sodium 1 gm/Dextrose 50 ml @ 50 mls/hr Q6HR IV 03/08/24 18:00 03/09/24 12:59 Potassium Chloride/Dextrose/ Sod Cl 1,000 ml @ 75 mls/hr [id number] IV 03/08/24 12:45 objective Well-developed well-nourished lady sedated on face mask HEENT: Pale conjunctiva, otherwise normocephalic atraumatic extraocular movements are intact Heart: Regular rate and rhythm Abdomen: Dressing dry Extremity no clubbing cyanosis or edema laboratory and microbiology Laboratory Tests 03/08/24 05:42 Test 03/08/24 05:42 Range/Units Serum Glucose 91 74-106 mg/dL Problems(with codes): (1) Ascending colon malignant neoplasm (2) Symptomatic anemia Prognosis Plan NPO IV fluid hydration IV antibiotics NG tube to low intermittent suction IV Clinimix 1 L per 24 hours if prolonged fasting as expected Monitor labs Await final pathology results Dietary Evaluation Review Comments: Advance to diet as tolerated after the GI procedures. Monitor PO intake to meet 75% of her needs Expected Outcomes/Goals: maintain weight. Plan discussed with: Patient HORTENSIA FERRARO MD Mar 08, 2024 13:30
[2024-03-08] MEDS: FUROSEMIDE 20 MG/2 ML VIAL ONE (13:52)
--- NOTE | 2024-03-08 14:16 | DVH ---
CHEST RADIOGRAPH Indication:POST OP Technique: Single frontal view of the chest was obtained COMPARISON: XY CHEST PORTABLE on DOS: 03/02/24 FINDINGS: Lines and Tubes: None Lungs: Multifocal airspace disease. Pleura: Small bilateral pleural effusions. No pneumothorax. Cardiomediastinal contours: Unremarkable Bones: Unremarkable IMPRESSION: Increased pulmonary edema.
[2024-03-08] MEDS: IPRATROPIUM BROM 0.5 MG/2.5ML INH SOL ONE (14:24)
[2024-03-08 15:09] LABS: Base Excess -5.9 mmol/L (-2.0-3.0)
[2024-03-08] MEDS: ALBUTEROL SULF 2.5 MG/0.5ML(0.5%) NEB SOLN NEB ONE (15:36)
[2024-03-08] MEDS: IPRATROPIUM BROM 0.5 MG/2.5ML INH SOL NEB ONE (15:36)
--- NOTE | 2024-03-08 15:48 | DVHOP ---
DATE OF SURGERY: 03/08/2024 PREOPERATIVE DIAGNOSIS: Right colon cancer. POSTOPERATIVE DIAGNOSIS: Right colon cancer. PROCEDURE: Laparoscopic lysis of adhesions and laparoscopic right hemicolectomy. SURGEON: Luis Eduardo Chakraborty MD. PUNCH HAND: None. ANESTHESIOLOGIST: Dr. Neil. ANESTHESIA: General by means of endotracheal intubation. INTRAOPERATIVE FINDINGS: No evidence of tattoo in the ascending colon. Distal stricture at the level of the proximal ascending colon. No evidence of hepatic metastatic disease. Significant amount of adhesions from previous surgical interventions involving the omentum against the left side of the abdomen as well as the ascending colon adherent to the right abdominal wall and the proximal transverse colon adherent to the posterior aspect of the right hepatic lobe and gallbladder adipose tissue. ESTIMATED BLOOD LOSS: Approximately 30-50 mL. INTRAVENOUS FLUIDS: Per anesthesia charting. URINE OUTPUT: Per RN charting. DRAINS: None. IMPLANTS: Endo-EVELIO warren and Surgicel SNoW. SPECIMENS: Terminal ileum, ascending and proximal transverse colon. COMPLICATIONS: None other than a difficult procedure secondary to above-mentioned intraoperative findings adding complexity as well as time to an otherwise routine procedure. Procedure well tolerated and transferred to recovery room in stable condition. INDICATIONS FOR PROCEDURE: The patient is an unfortunate 83-year-old female who came to the Emergency Department with profound anemia. The patient had colonoscopy, identifying a malignant-appearing lesion. The preliminary results of the pathology from the biopsy revealed evidence of at least intramucosal carcinoma. Based on the above-mentioned information, I had a lengthy discussion with the patient and I recommended laparoscopic possible open right hemicolectomy. The procedure, risks and benefits were explained in a detailed and extensive fashion. She was made aware of potential complications such as bleeding, infection, need for additional procedures, injury to internal organs, blood vessels and/or nerves, incisional hernia, future bowel obstruction, anastomotic leak, blood clots in leg/lungs, heart attack, stroke and/or . All questions were answered. She understood and agreed to proceed. DESCRIPTION OF PROCEDURE: The patient was met in the preoperative holding area. She was given the opportunity to ask any further questions. She had no questions at that time. She was also asked whether she would like me to talk to any family members. She stated that she did not want me to talk to any family members until after surgery and instructed me to call her daughter. The patient was then transported to the operating room where she was placed in the dorsal decubitus position on the operating table. Once adequate anesthesia was achieved, the patient had a Negrete catheter inserted by the circulating nurse under sterile conditions. She received prophylactic antibiotics. The abdomen was widely prepped and draped in the usual sterile fashion. My attention was directed to the supraumbilical midline region where local anesthesia consisting of lidocaine, 0.5% Marcaine was infiltrated. The abdominal wall was retracted anteriorly. A 5 mm incision was made and a Veress needle was inserted into the abdominal cavity. Pneumoperitoneum of 15 mmHg was achieved. The Veress needle was exchanged for a 5 mm trocar. A 5 mm 30-degree laparoscope was inserted into the abdominal cavity. A thorough survey of the abdominal cavity did not reveal any evidence of injury or bleeding upon entry. At this time, my attention was directed to the left side of the abdomen where adhesions involving the most lateral aspect of the left side of the abdomen were noted. In the left lower quadrant region and medial to the adhesions, a 12 mm trocar was placed. In the infraumbilical region, another 5 mm trocar was placed. Both trocars were placed with perioperative local anesthesia as well as under direct laparoscopic visualization. My attention was directed towards the liver. It did not demonstrate any evidence of hepatic metastatic disease. My attention was then directed to the right side of the abdomen where the colon was identified. There were some adhesions involving the ascending colon against the anterolateral aspect of the abdominal wall. There is also a stricture observed at the level of the proximal ascending colon just above the cecum. There was no evidence of tattoo from the colonoscopy. My attention was directed towards the right colon. The white line of Toldt was incised with EndoShears and dissection was carried distally also dissecting the adhesions involving the ascending colon against the anterolateral aspect of the abdominal wall. My attention was directed towards gastrocolic ligament, which was incised with the LigaSure Impact device. The patient demonstrated that the hepatocolic ligament was densely adherent to the gallbladder as well as the posterior aspect of the right hepatic lobe. These adhesions were carefully dissected with the LigaSure Impact device without injury to involved structures. The colon was mobilized medially, completely exposing the duodenum. There was no evidence of any injury or bleeding to any surrounding structures. At this time, a 60 mm Endo-EVELIO stapler with a blue cartridge was utilized to divide the terminal ileum. The mesentery of the small bowel and the right colon was divided with the LigaSure Impact device carrying the of the mesentery to the transverse mesentery. This provided excellent mobilization. There was no evidence of active bleeding. At this time, the proximal small bowel stump was grasped with the Prestige grasper to be noted to maintain proper orientation in order to proceed with the anastomosis at a later time. The distal small bowel/specimen site was clamped with another Prestige grasper in order to maintain proper orientation to perform the anastomosis. The pneumoperitoneum was evacuated. A supraumbilical trocar incision was extended cephalad to approximately 6-8 cm in length. A dermis and subcutaneous tissue were incised to the full extent of the skin incision to the level of the fascia. The fascia was incised with the electrocautery to the full extent of the skin incision exposing the peritoneal layer. The trocar was removed. At this time, I inserted my index finger through the peritoneal defect and retracted the peritoneal layer anteriorly incising peritoneum with my finger in order to avoid injury to internal organs. A medium size Ellis wound protector was placed. The specimen was retrieved through the Ellis. The right branch of middle colic vessel was identified. A mesenteric window was created between the left and right middle colic vessels. The right middle colic vessels were divided between clamps and tied off with a 2-0 Vicryl tie. Using the same stapler with a blue cartridge, the proximal transverse colon was divided proximal to the left middle colic vessels. The specimen was handed off to the ct scan technician to hold it in the back table in order to be opened at the completion of the procedure to obtain margins. At this time, the small bowel stump was retrieved through the Ellis wound protector. A functional isoperistaltic anastomosis was created with a same stapler device using a blue cartridge. The TA staple line was reinforced with double layer using several interrupted 3-0 silk sutures in Lembert fashion. An anastomosis was inspected. There was no evidence of active bleeding or ischemia. There is no evidence of any internal hernias. The mesentery was maintained with proper orientation. There was no volvulus or twisted mesentery. back into the abdominal cavity. A 6.5 orthopedic glove was placed around the Ellis wound protector. Pneumoperitoneum was achieved up to 15 mmHg. The abdominal cavity was inspected for any evidence of injury or bleeding. There was noted to be a small amount of oozing from the ascending colon mesentery in close proximity to the duodenum. This was easily controlled with Surgicel SNoW. There was no evidence of any other abnormalities. At this time, my attention was directed to the left lower quadrant 12 mm trocar site, which was closed with a Solomon-Karina device and #1 Vicryl in a [id number] fashion under direct laparoscopic visualization. At this time, the remaining laparoscopic equipment was removed from the patient. The Ellis and 6.5 glove were removed from the patient. The fascia was closed with double-stranded 0 PDS sutures x2. The skin was closed with warren. The wound was washed and dried. Sterile dressings were applied. The patient tolerated well procedure. There were no complications. She was successfully extubated in the operating room and transferred to recovery room in stable condition. MD AURELIO Arteaga/JEANA/CHRISTIAN/ELIZABETH TID: [id number] RECEIPT: [id number]
[2024-03-08] MEDS: FUROSEMIDE 20 MG/2 ML VIAL IV ONE ×2 (15:49→20:35)
[2024-03-08 16:19] LABS: Base Excess -6.4 mmol/L (-2.0-3.0)
[2024-03-08] MEDS: ETOMIDATE (2MG/ML) 20ML VIAL IV ONE ×2 (17:15→17:50)
[2024-03-08] MEDS: ROCURONIUM 10MG/ML 10ML VIAL IV ONE ×2 (17:50)
[2024-03-08] MEDS: MIDAZOLAM DRIP 50 mg/50mL 50 ML IV SCH (17:50)
[2024-03-08] MEDS: fentaNYL Drip 2500mCg/250mlNS 250 ML IV SCH (18:30)
[2024-03-08] MEDS: NOREPINEPHRINE 8 MG/250ML KIT 250 ML IV SCH (19:00)
--- NOTE | 2024-03-08 19:11 | DVH ---
CHEST RADIOGRAPH Indication:CENTRAL LINE/ETT PLACEMENT Technique: Single frontal view of the chest was obtained Comparison: XY CHEST PORTABLE on DOS: 03/08/24, XY CHEST PORTABLE on DOS: 03/02/24 Findings/ IMPRESSION: Endotracheal tube terminates 5 cm superior to the cayla. Moderate right-sided pleural effusion. Supe rimposed infection not excluded.No pneumothorax. Possible trace left-sided pleural effusion and/or a telectasis.
[2024-03-08 19:16] LABS: Base Excess -1.6 mmol/L (-2.0-3.0)
--- NOTE | 2024-03-08 20:04 | DVHNC2 ---
Procedure - Procedure: Endotracheal Intubation INDICATION: Acute hypercarbic respiratory failure, accessory muscle usage Physician: Vick Meza MD CONSENT: Emergent procedure. Implied. PROCEDURE SUMMARY: A time out was performed. My hands were washed immediately prior to the procedure. I wore a surgical cap, mask with protective eyewear, gown and gloves throughout the procedure. The patient was placed on a bus driver/monitor including continuous pulse oximetry. The patient received 16 mg Etomidate and 50mg rocuronium for induction. Cricoid pressure was maintained from time induction agent was given to time of cuff balloon inflation. Using a MAC 4 GlideoScope and a size 8.0 endotracheal tube with stylet, the patient was intubated on the 1 attempt. The stylet was removed and cuff balloon was inflated. Appropriate endotracheal tube position was confirmed by direct visualization of vocal cord passage, fogging of the tube, CO2 colorimetric indicator and symmetric breath sounds. The tube was secured at 25 cm at the lips. Post intubation chest x-ray i s demonstrates the ETT approximately 4 cm above the cayla. CPT Code: 50540 VICK MEZA MD Mar 08, 2024 20:04
--- NOTE | 2024-03-08 20:07 | DVHNC2 ---
Procedure - ULTRASOUND-GUIDED LEFT SUBCLAVIAN CENTRAL VENOUS CANNULATION CPT Codes: 55504 (ultrasound guidance) 70349 (insertion of non-tunneled centrally inserted central venous catheter) 59680 (CXR interpretation) DATE: 03/08/24 PHYSICIAN: Vick Meza PREOPERATIVE DIAGNOSIS: Acute hypoxic respiratory failure POSTOPERATIVE DIAGNOSIS: Acute hypoxic respiratory failure PROCEDURE PERFORMED: Limited Ultrasound-guided LEFT SUBCLAVIAN central line placement. ANESTHESIA: 2 mL of 1% lidocaine plain. ESTIMATED BLOOD LOSS: less than 5 mL. SPECIMENS: None. COMPLICATIONS: None. INDICATIONS FOR PROCEDURE: The patient is in need of large bore IV access for administration of fluids, including blood products and vasoactive drugs, possible transvenous cardiac pacing and CVP monitoring for hemodynamic instability. DESCRIPTION OF PROCEDURE IN DETAIL: The patient was lying in the Trendelenburg position with head turned 30 degrees away from the insertion site. The skin was thoroughly sponged with chlorhexidine and allowed to dry. All persons involved were shielded with hair nets, face masks and sterile gowns. With sterile-gloved hands the LEFT neck area was draped with the large disposable sterile field provided in the pre-manufactured kit. The skin and subcutaneous tissues superficial to the LEFT SUBCLAVIAN vein were anesthetized with 2 mL of 1% lidocaine. The LEFT SUBCLAVIAN vein was identified on ultrasound from the angle of the mandible down into the supraclavicular fossa using the linear ultrasound probe in the transverse orientation. The carotid artery was identified and avoided utilizing color-flow. The SUBCLAVIAN vein was then placed in the center of the ultrasound field and compressed for patency. A movement artifact was identified as the needle was advanced through the skin and advanced toward the vessel. A real time hyperechoic signal revealed visualization of vascular needle entry into the lumen as blood was noted to flashback in the syringe. The needle was then held in place while the guide wire was advanced. The needle was then removed. Direct visualization of guide wire location within the vein was noted on ultrasound indicating proper placement and was document in the electronic medical record chart. A skin dilator was advanced over the guidewire and removed, and the triple-lumen catheter was then advanced over the guide wire into proper position. The guide wire was removed and discarded. The ports were aspirated which showed good blood return and then carefully flushed with normal saline. The catheter was stabilized and sutured to the skin with 2-0 silk at 4 anchor points. A sterile bio-patch and dressing was placed over the catheter, including the insertion site. The patient tolerated the procedure well. A chest x-ray was ordered for position confirmation. I reviewed the image immediately after it was taken at bedside. Post-procedure chest x-ray demonstrates the central line in the superior vena and no evidence of any pneumothorax. An image recording of the procedure accompanies the chart. VICK MEZA MD Mar 08, 2024 20:07
--- NOTE | 2024-03-08 20:11 | DVHNC2 ---
Procedure - Bronchoscopy procedure note: Indications: Possible mucous plugging. Medicines: See SENIOR QUALITY CONTROL INSPECTOR notes. Complications: None Procedure: Patient medications and allergies reviewed. The risks and benefits of the procedure and the sedation options and risk were discussed with the patient's healthcare proxy. All questions were answered and informed consent was obtained. Patient identification and proposed procedure were verified prior to the procedure by the physician, and a nurse, and the respiratory therapist in ICU room. The heart rate, respiratory rate, oxygen saturations, blood pressure, adequacy of pulmonary ventilation, and response to care were monitored throughout the procedure. The physical status of the patient was reassessed after the procedure. After obtaining informed consent, the bronchoscope was introduced through the endotracheal tube and advanced into the trachea bronchial tree of both lungs. The procedure was accomplished without difficulty. The patient tolerated the procedure well. Findings: The trachea is in normal caliber. The cayla is sharp. There were pooled secretions noted at level of cayla. The tracheobronchial tree of the right lung was examined to at least the first subsegmental level. The bronchial mucosa and anatomy in the right lung are normal. There are no endobronchial lesions. There was no secretions. Right middle lobe (RML) Bronchoalveolar lavage (BAL) obtained. RML BAL sent for gram stain and culture. The left upper lobe, lingula, and left lower lobe were examined to at least the first subsegmental level. Bronchial mucosa and anatomy in the left upper lobe and lingula are normal. There were no endobronchial lesions. There was no secretions There was no active bleeding at the completion of the procedure. Estimated blood loss: Less than 5 mL. Impression: Pooled secretions at cayla likely aspiration phlegm RML BAL performed Recommendation: Follow-up RML BAL results. Procedure codes: 60585, bronchoscopy, rigid and flexible, including fluoroscopic guidance, one performed; with bronchial endobronchial broncho-alveolar lavage, single or multiple sites VICK ARANA MD Mar 08, 2024 20:10
--- NOTE | 2024-03-08 20:14 | DVHNC2 ---
Procedure - LEFT Radial arterial line procedure note Indication: Hemodynamic monitoring, frequent blood ABG draws. Ship'S Cook: Dr. Meza Consent: Consent was obtained from patient's healthcare proxy prior to procedure. Indications, risks, and benefits were explained at length. Procedure summary: A time-out was performed. My hands were washed immediately prior to the procedure. I wore surgical cap, mask with protective eyewear, sterile gown and sterile gloves throughout the procedure. After an Kana test was performed to ensure adequate perfusion, the LEFT wrist was prepped using chlorhexidine scrub and draped in sterile fashion using sterile towels. The radial pulse was identified with the use of ultrasound. The wrist was positioned in the usual fashion. Anesthesia was achieved using 1% lidocaine. Using the radial arterial line kit, needle was inserted into the radial artery using ultrasound guidance. Arterial blood flow was seen to pulsate in the flash chamber. The internal guidewire was advanced easily into the radial artery. The catheter was then advanced over the wire and the needle and wire were withdrawn. The catheter was sutured into place with 1 sutures. A sterile Biopatch and Tegaderm was placed over the catheter at the insertion site. The patient tolerated the procedure without any hemodynamic compromise. At the time of procedure completion, the catheter was connected to the night monitor and calibrated. Appropriate waveform and blood pressure tracing was observed. Estimated blood loss is less than 5 mL. CPT: 03736 Arterial line insertion CPT: 62810 US add-on VICK MEZA MD Mar 08, 2024 20:14
[2024-03-08] MEDS: D5W/SOD CHL 0.45%/KCL 20MEQ 1,000 ML IV SCH (20:35)
--- NOTE | 2024-03-08 20:52 | DVHINCON2 ---
Date of service: Mar 08, 2024 Referring Physician Joselito Marroquin MD Reason for Consultation Acute hypoxic respiratory failure requiring mechanical vent, pulmonary edema,, and pleural effusion History of Present Illness An 83-year-old woman with PMHx of chronic DVTs, on Eliquis, hypertension, hyperlipidemia, and iron deficiency anemia, who presented to ED on 03/03 with 3 days' history of shortness of breath, dyspnea, lack of energy, lightheadedness, chest tightness and syncopal feeling. Patient noted to be pale on presentation to the ED. Reported symptoms progressively got worse on day of presentation to the point where she could not even get up to stand or walk, felt lightheaded and felt she was going to syncopize. Denied palpitations but felt like her heart was unusually pumping compared to usual. Denied N/V. She also c/o some bright red blood on wiping the other day, but no tarry or bloody stools. She was taking iron pills, quit 4 weeks ago due to constipation. Patient was admitted for further care. Pulmonary consultation is requested for evaluation and management of acute hypoxic respiratory failure requiring mechanical vent, pulmonary edema, , and pleural effusion. Review of Systems: 14-point review of systems negative unless otherwise noted above. Past Medical History: Chronic DVTs, on Eliquis, essential hypertension, hyperlipidemia, iron deficiency anemia Past Surgical History: Left hip replacement 2020, right hip replacement about 1 year ago, bladder surgery in approximately 2015, hysterectomy, appendectomy and tonsillectomy Medications: Reviewed. Allergies: No known drug allergies. Family History: Dementia. Social History: Nonsmoker. No alcohol or illicit drug use. Family History: FH: dementia Allergies: Coded Allergies: NO KNOWN ALLERGIES (Unverified , 03/02/24) Home Meds Reported Medications Latanoprost (LATANOPROST) 0.005 % Cecilia, 1 DROP EACHEYE QPM, #2.5 ML 6 Refills 03/03/24 Alendronate Sodium (Alendronate Sodium) 35 Mg Tab, 1 TAB PO QWEEKLY, #4 TAB 11 Refills 03/03/24 Lorazepam (ATIVAN TABLET) 0.5 Mg Tb, 1 TAB PO TID, #90 TAB 03/03/24 Omeprazole (Gnp Omeprazole) 20 Mg Tab, 1 TAB PO DAILY, #90 TAB 1 Refill 03/03/24 Lovastatin (Lovastatin) 40 Mg Tab, 1 TAB PO DAILY, #30 TAB 5 Refills 03/03/24 Metoprolol Tartrate (Lopressor) 25 Mg Tb, 25 MG PO Q12HR, TAB 0 Refills 03/03/24 Apixaban Base (ELIQUIS) 5 Mg Tab, 5 MG PO BID, TAB 03/03/24 Current Medications Current Medications Medications (Trade) Dose Ordered Sig/Wm Route PRN Reason Start Time Stop Time Status Last Admin Hydralazine HCl (Apresoline Injection) 5 mg Q10M PRN IV SBP>160 03/08/24 11:00 03/08/24 11:53 DC Morphine Sulfate 2 mg Q2HPRN PRN IV BREAKTHROUGH PAIN (7-10) 03/08/24 11:00 03/08/24 11:35 DC Midazolam HCl (Versed Injection) 1 mg Q10M PRN IV ANXIETY 03/08/24 11:00 03/08/24 11:41 DC Ephedrine Sulfate (ePHEDrine SULFATE) 10 mg Q10M PRN IV SBP LESS THAN 90 03/08/24 11:00 03/08/24 11:41 DC Fentanyl Citrate 25 mcg Q1HP PRN IV BREAKTHROUGH PAIN (7-10) 03/08/24 11:00 03/08/24 11:35 DC Hydromorphone HCl (Dilaudid Injection) 0.5 mg Q10M PRN IV SEVERE PAIN (7-10 PAIN SCALE) 03/08/24 11:00 03/08/24 11:41 DC Morphine Sulfate 2 mg Q2HP PRN IV BREAKTHROUGH PAIN 03/08/24 12:45 Acetaminophen/ Hydrocodone Bitart ([place] 5/325MG Tab) 1 tab Q4HPRN PRN PO MODERATE PAIN (4-6 PAIN SCALE) 03/08/24 12:45 Acetaminophen/ Hydrocodone Bitart ([place] 10/325MG Tab) 1 tab Q4HP PRN PO SEVERE PAIN (7-10 PAIN SCALE) 03/08/24 12:45 Cefoxitin Sodium 1 gm/Dextrose 50 ml @ 50 mls/hr Q6HR IV 03/08/24 18:00 03/08/24 20:32 DC Potassium Chloride/Dextrose/ Sod Cl 1,000 ml @ 75 mls/hr [id number] IV 03/08/24 12:45 03/08/24 20:35 Norepinephrine Bitartrate 250 ml @ 3.75 mls/hr Q24H IV 03/08/24 17:15 03/08/24 19:00 Midazolam HCl 50 ml @ 1 mls/hr Q24H IV 03/08/24 17:15 03/08/24 17:50 Fentanyl Citrate 250 ml @ 2.5 mls/hr Q24H IV 03/08/24 17:15 03/08/24 18:30 Cefoxitin Sodium 1 gm/Dextrose 50 ml @ 50 mls/hr Q6H IV 03/08/24 20:45 03/09/24 15:44 Vital Signs Vital Signs Date Time Temp Pulse Resp B/P (MAP) Pulse Ox O2 Delivery O2 Flow Rate FiO2 03/08/24 20:35 132/63 03/08/24 19:47 87 18 99 100 03/08/24 17:00 Bi-Pap+ 03/08/24 16:43 96.3 96.3 03/08/24 15:36 10 Physical Exam Gen.: Patient lying in bed in medical ICU. Sedated, intubated on mechanical ventilator. Head: Normocephalic, atraumatic. Eyes: PERRLA. Ears: Normal external anatomy. Throat: Endotracheal tube and orogastric tube in place. Neck: Supple, trachea midline. Chest: Transmitted breath sounds bilaterally. Decreased air entry bilaterally. No wheezing. Bibasilar crackles. Cardiovascular: Positive S1, positive S2. Regular rate and rhythm. Abdomen: Positive bowel sounds in all 4 quadrants. Soft, nontender, nondistended. : Negrete in place. Normal external genitalia. Rectal: Deferred. Skin: Warm, dry. Intact. Extremities: 2+ radial pulses bilaterally. No lower extremity edema. Neuro: Sedated. Labs/Diagnostic Data Labs Test 03/08/24 19:06 03/08/24 16:13 03/08/24 14:59 03/08/24 09:11 Range/Units Blood Gas Specimen Type Arterial Blood Gas Sample Site Arterial line Blood Gas Patient Temperature 37.0 Arterial Blood Date Drawn [id number] Arterial Blood pH 7.442 7.350-7.450 Arterial Blood Partial Pressure CO2 32.7 32.0-45.0 mmHg Arterial Blood Partial Pressure O2 53.7 *L 83.0-108.0 mmHg Arterial Blood HCO3 21.8 21.0-28.0 mmol/L Arterial Blood Oxygen Saturation 89.0 L 94.0-98.0 % Arterial Blood Base Excess -1.6 -2.0-3.0 mmol/L Arterial Blood Oxyhemoglobin 87.5 L 94.0-98.0 % Arterial Blood Carboxyhemoglobin 1.1 0.5-1.5 % Arterial Blood Methemoglobin 0.6 0.0-1.5 % Kana Test Modified Blood Gas Total Hemoglobin 12.40 12.0-16.0 g/dL Blood Gas Set Respiration Rate 18.0 Blood Gas Modality Vent - ac FiO2 % 100.0 Blood Gas Tidal Volume 450.0 Blood Gas PEEP or CPAP 8.0 Blood Gas Critical Value Read Back Yes Blood Gas Notified Whom Beatrice yang md Blood Gas Notified Time [id number] Blood Gas Notified By Jordy lopez aluminum hydroxide process operator Blood Gas EPAP 5 Blood Gas IPAP 15 Blood Gas Liter Flow 10.00 Prothrombin Time 11.9 H 9.3-11.8 sec Prothrombin Time INR 1.13 0.9-1.15 Activated Partial Thromboplast Time 28.2 24.5-34.5 SEC Test 03/08/24 05:42 03/07/24 05:41 03/03/24 09:35 03/03/24 00:29 Range/Units White Blood Count 4.5 4.4-10.8 10^3/uL Red Blood Count 3.92 L 4.0-5.20 10^6/uL Hemoglobin 9.9 L 12.2-16.2 g/dL Hematocrit 31.5 L 36.0-46.0 % Mean Corpuscular Volume 80.3 80.0-100.0 fL Mean Corpuscular Hemoglobin 25.4 L 28.0-32.0 pg Mean Corpuscular Hemoglobin Concent 31.6 L 32.0-36.0 g/dL Red Cell Distribution Width 25.2 H 11.8-14.3 % Platelet Count 153 140-450 10^3/uL Mean Platelet Volume 9.1 6.9-10.8 fL Neutrophils (%) (Auto) 69.4 37.0-80.0 % Lymphocytes (%) (Auto) 13.2 10.0-50.0 % Monocytes (%) (Auto) 13.1 H 0.0-12.0 % Eosinophils (%) (Auto) 3.1 0.0-7.0 % Basophils (%) (Auto) 1.2 0.0-2.0 % Neutrophils # (Auto) 3.1 1.6-8.6 10 ^3/uL Lymphocytes # (Auto) 0.6 0.4-5.4 10 ^3/uL Monocytes # (Auto) 0.6 0-1.3 10 ^3/uL Eosinophils # (Auto) 0.1 0-0.8 10 ^3/uL Basophils # (Auto) 0.1 0-0.2 10 ^3/uL Nucleated Red Blood Cells 0.1 % Platelet Estimate Adequate Anisocytosis (manual) Moderate Ovalocytes Few Sodium Level 139 136-145 mmol/L Potassium Level 3.5 3.5-5.1 mmol/L Chloride Level 105 98-107 mmol/L Carbon Dioxide Level 25 20-31 mmol/L Anion Gap 9 5-15 Blood Urea Nitrogen < 5 L 9-23 mg/dL Creatinine 0.52 L 0.550-1.02 mg/dL Glomerular Filtration Rate Calc 92 >90 mL/min BUN/Creatinine Ratio 9.6 L 10.0-20.0 Serum Glucose 91 74-106 mg/dL Calcium Level 8.7 8.7-10.4 mg/dL Carcinoembryonic Antigen 2.67 <=5.0 ng/mL D-Dimer, Quantitative 0.47 0.0-0.49 mg/L FEU Total Bilirubin 2.1 H 0.2-1.0 mg/dL Aspartate Amino Transferase (AST) < 8 L 13-40 U/L Alanine Aminotransferase (ALT) < 9 7-40 U/L Alkaline Phosphatase 37 L 46-116 U/L Total Protein 6.2 5.7-8.2 g/dL Albumin 4.1 3.2-4.8 g/dL Urine Color Straw Yellow Urine Clarity Clear Clear Urine pH 6.0 5.0-9.0 Urine Specific [place] 1.009 1.001-1.035 Urine Protein Negative Negative Urine Ketones Negative Negative Urine Blood Negative Negative /uL Urine Nitrite Negative Negative Urine Bilirubin Negative Negative Urine Urobilinogen Normal Negative mg/dL Urine Leukocyte Esterase 1+ Negative /uL Urine RBC None seen 0 - 4 /hpf Urine WBC <1 0 - 5 /hpf Urine Squamous Epithelial Cells Few <5 /hpf Urine Bacteria None seen None Seen /hpf Urine Glucose Normal Normal mg/dL Test 03/03/24 00:25 03/02/24 23:50 03/02/24 23:06 03/02/24 22:25 Range/Units Reticulocyte Count (auto) 2.77 H 0.5-1.5 % Haptoglobin 151 41-333 mg/dL Iron Level 6 L 50-170 ug/dL Total Iron Binding Capacity 409 250-425 ug/dL Percent Iron Saturation 1.5 L 15-50 % Direct Bilirubin 0.2 <0.3 mg/dL Lactate Dehydrogenase 144 120-246 U/L Lactic Acid Level 1.3 0.4-2.0 mmol/L Troponin I High Sensitivity 25 </=34 ng/L Large Platelets Few Hypochromasia (manual) Moderate Microcytosis Slight Stomatocytes Few Magnesium Level 2.2 1.6-2.6 mg/dL B-Type Natriuretic Peptide 593.36 0-100 pg/mL Assessment Impression: Acute hypoxic respiratory failure On mechanical ventilator Pulmonary edema Pleural effusions Atelectasis Obesity Plan: s/p intubation on mechanical ventilator. On AC mode with RR 18, VT 450, PEEP 8, FiO2 100% CXR notable for pulmonary edema. CT chest demonstrates bilateral pleural effusions, atelectasis ABG pending. High IPAP pressures could be required to achieve ventilation Limited chest U/S notable for B-lines suggestive of pulmonary interstitial edema. Lasix 20 mg IVP x1 Already received Lasix 40 mg Titrate FIO2 to keep O2 saturation above 90%. VAP bundle. Daily ABG and CXR while intubated Sedated for ventilatory synchrony - on Fentanyl, Versed Antibiotics. F/u cultures. Start pressors if necessary to maintain a mean arterial blood pressure greater than 65 mmHg. Diurese to maintain euvolemia. Monitor renal function Monitor electrolytes. Supplement as necessary. Monitor ins and outs. Diet and lifestyle modifications for weight reduction Obesity - complicates all care. GI prophylaxis. DVT prophylaxis. Prognosis: Poor given patient's multiple co-morbidities. Condition: Critical Rest of plan per hospitalist and other consultants. A total of 90 minutes of critical care time was spent reviewing the patient record, examining the patient, making a diagnostic and therapeutic plan, discussing this plan with the medical personnel, following up on diagnostic studies and following the patient for clinical stability excluding any and all procedures. At least 50% of this time was spent in direct, [id number] contact. Thank you Dr. Joselito Marroquin MD, for allowing me to participate in this patient's care. Further recommendations will depend on the patient's clinical course. Please do not hesitate to contact me if you have any questions or concerns. This medical document was created using an electronic medical record system with [employer] dictation system. Although these documentations are being carefully reviewed, there may still be some phonetic and typographical changes. The errors are purely typographical, due to imperfection on the software program, and do not reflect any compromise in the patient's medical care. Plan discussed with: Other (RN, ) VICK YANG MD Mar 08, 2024 20:52
--- NOTE | 2024-03-08 22:43 | DVHPN2 ---
Progress Note - Dictate Date Seen: Mar 08, 2024 Has the PT tested + for MRSA If YES, has PT been informed?: Yes Medical Necessity Reason Pt with a Central, PICC or Fol: No Subjective Patient was seen and evaluated in follow up in the ICU. Patient is planned to undergo right hemicolectomy today. HGB 9.9, HCT 31.5, PT 11.9. CT Chest/ABD/PEL shows bilateral pleural effusions which appear increased in size in comparison to prior study, atelectasis versus airspace disease in the bilateral posterior lower lobes, distended gallbladder without evidence of radiopaque gallstones and distal colon diverticulosis. vital signs Vital Sign Date Time Temp Pulse Resp B/P (MAP) Pulse Ox O2 Delivery O2 Flow Rate FiO2 03/08/24 08:41 97.9 81 17 150/64 (92) 93 97.9 03/08/24 07:56 Room Air* 0 21 Total Intake and Output 03/07/24 03/07/24 03/08/24 14:59 22:59 06:59 Intake Total 354 ml 240 ml Balance 354 ml 240 ml medications Current Medications Medications Dose Ordered Sig/Wm Route Start Time Stop Time Status Last Admin Dose Admin Ondansetron HCl 4 mg Q4HP PRN IV 03/03/24 00:15 03/03/24 18:33 4 MG Morphine Sulfate 2 mg Q4HPRN PRN IV 03/03/24 00:15 Nitroglycerin 0.4 mg Q5MINP PRN SL 03/03/24 00:15 Morphine Sulfate 2 mg Q30M PRN IV 03/03/24 00:15 Pantoprazole Sodium 40 mg DAILY IV 03/03/24 10:00 03/08/24 08:49 40 MG objective GENERAL: Awake, alert, oriented. LUNGS: Clear. CARDIOVASCULAR: Heart sounds are good. ABDOMEN: Soft. laboratory and microbiology Laboratory Tests 03/08/24 05:42 Test 03/08/24 05:42 Range/Units Serum Glucose 91 74-106 mg/dL Problem List Colonic mass found on colonoscopy. GI Bleed. Anemia. HTN. HLD. H/O DVT. Assessment/Plan Continued all current supportive medical care. GI prophylactics. Morphine for pain management. Additional plan as per the hospital course. Critical care time of 45 minutes provided to include time spent evaluation of patient at bedside, when appropriate patient/family education for diagnosis, treatment plan, review of pertinent medical information and discussion of care with specialty providers and PCP. Dietary Evaluation Review Comments: Advance to diet as tolerated after the GI procedures. Monitor PO intake to meet 75% of her needs Expected Outcomes/Goals: maintain weight. Plan discussed with: Patient MARIANGEL SHOEMAKER MD Mar 08, 2024 12:14
[2024-03-09] VITALS (106 sets, daily range): BP systolic 70–158; BP diastolic 41–153; PULSE 76–125; RESP 11–33; TEMP 99.1–101.5; O2SAT 93–100
[2024-03-09 05:17] LABS: Anion Gap 10 (5-15); Carbon Dioxide 24 mmol/L (20-31); Chloride 103 mmol/L (98-107); Potassium 3.7 mmol/L (3.5-5.1); Sodium 137 mmol/L (136-145)
[2024-03-09 05:19] LABS: Calcium 8.3 mg/dL (8.7-10.4)
[2024-03-09 05:23] LABS: Glucose 193 mg/dL (74-106)
[2024-03-09 05:24] LABS: BUN/Creatinine Ratio 9.1 (10.0-20.0); Blood Urea Nitrogen 7 mg/dL (9-23)
[2024-03-09 05:31] LABS: Basophils # (auto) 0 10 ^3/uL (0-0.2); Eosinophils # (auto) 0 10 ^3/uL (0-0.8); Hemoglobin 10.7 g/dL (12.2-16.2); Lymphocytes # (auto) 0.3 10 ^3/uL (0.4-5.4)
[2024-03-09 05:33] LABS: Hematocrit 33.7 % (36.0-46.0); Lymphocytes % (auto) 1.9 % (10.0-50.0); Mean Corpuscular Hemoglobin 25.4 pg (28.0-32.0); Mean Corpuscular Hgb Conc. 31.9 g/dL (32.0-36.0); Mean Corpuscular Volume 79.6 fL (80.0-100.0); Monocytes # (auto) 0.9 10 ^3/uL (0-1.3); Monocytes % (auto) 5.3 % (0.0-12.0); Neutrophils # (auto) 16.1 10 ^3/uL (1.6-8.6); Neutrophils % (auto) 92.8 % (37.0-80.0); Platelet Count (auto) 178 10^3/uL (140-450); Red Blood Cells 4.23 10^6/uL (4.0-5.20); White Blood Cell 17.4 10^3/uL (4.4-10.8)
[2024-03-09 05:44] LABS: Red Cell Distribution Width 25.9 % (11.8-14.3)
--- NOTE | 2024-03-09 05:45 | DVH ---
CHEST RADIOGRAPH Indication:VENTED/NGT PLACEMENT Technique: Single frontal view of the chest was obtained COMPARISON: XY CHEST PORTABLE on DOS: 03/08/24, XY CHEST PORTABLE on DOS: 03/08/24, XY CHEST PORTABLE on DOS: 03/02/24 FINDINGS: Lines and Tubes: Endotracheal tube, enteric catheter and left central venous catheter in satisfactory position. Lungs: Multifocal airspace disease. Pleura: Small left pleural effusion. No pneumothorax. Cardiomediastinal contours: Unremarkable Bones: Unremarkable IMPRESSION: Lines and tubes in satisfactory position. No significant interval change.
[2024-03-09 06:59] LABS: Base Excess -0.8 mmol/L (-2.0-3.0)
[2024-03-09 07:26] LABS: Anisocytosis Moderate; Ovalocytes FEW; Platelet Estimate Adequate
--- NOTE | 2024-03-09 10:28 | DVHPN2 ---
Progress Note - Dictate Date Seen: Mar 09, 2024 Has the PT tested + for MRSA If YES, has PT been informed?: Yes Medical Necessity Reason Pt with a Central, PICC or Fol: No Subjective Patient intubated and sedated. vital signs Vital Sign Date Time Temp Pulse Resp B/P (MAP) Pulse Ox O2 Delivery O2 Flow Rate FiO2 03/09/24 08:04 88 16 122/57 (78) 100 50 03/09/24 08:00 99.5 211.1 03/09/24 06:00 Mechanical Ventilator+ 03/08/24 15:36 10 Total Intake and Output 03/08/24 03/08/24 03/09/24 14:59 22:59 06:59 Intake Total 25 ml 229.25 ml 1311.00 ml Output Total 800 ml 900 ml Balance 25 ml -570.75 ml 411.00 ml medications Current Medications Medications Dose Ordered Sig/Wm Route Start Time Stop Time Status Last Admin Dose Admin Ondansetron HCl 4 mg Q4HP PRN IV 03/03/24 00:15 03/03/24 18:33 4 MG Nitroglycerin 0.4 mg Q5MINP PRN SL 03/03/24 00:15 Morphine Sulfate 2 mg Q30M PRN IV 03/03/24 00:15 Pantoprazole Sodium 40 mg DAILY IV 03/03/24 10:00 03/09/24 09:25 40 MG Morphine Sulfate 2 mg Q2HP PRN IV 03/08/24 12:45 Acetaminophen/ Hydrocodone Bitart 1 tab Q4HPRN PRN PO 03/08/24 12:45 Acetaminophen/ Hydrocodone Bitart 1 tab Q4HP PRN PO 03/08/24 12:45 Potassium Chloride/Dextrose/ Sod Cl 1,000 ml @ 75 mls/hr [id number] IV 03/08/24 12:45 03/09/24 09:26 75 MLS/HR Norepinephrine Bitartrate 250 ml @ 3.75 mls/hr Q24H IV 03/08/24 17:15 03/08/24 19:00 3.75 MLS/HR Midazolam HCl 50 ml @ 1 mls/hr Q24H IV 03/08/24 17:15 03/09/24 07:44 2 MLS/HR Fentanyl Citrate 250 ml @ 2.5 mls/hr Q24H IV 03/08/24 17:15 03/08/24 18:30 2.5 MLS/HR Cefoxitin Sodium 1 gm/Dextrose 50 ml @ 50 mls/hr Q6H IV 03/08/24 20:45 03/09/24 15:44 03/09/24 00:57 50 MLS/HR objective General: Intubated Lungs: CTA, no crackles Cardiovascular: RRR, no murmurs, no LE Edema Abdomen: Surgical incision without signs of erythema or fluctuance Neuro: Sedated laboratory and microbiology Laboratory Tests 03/09/24 04:36 Test 03/09/24 04:36 Range/Units Serum Glucose 193 H 74-106 mg/dL Problem List 1) Colonic mass as noted on colonoscopy s/p hemicolectomy 03/08 2) Anemia 2/2 GI bleed s/p 4 units PRBCs 3) HTN 4) HLD 5) H/O DVT 6) Shock 7) Acute Respiratory Failure Assessment/Plan -General surgery, Dr. Chakraborty consulted. Patient s/p hemicolectomy 03/08. -Hematology-oncology consulted for mass. Pathology report pending. -Antibiotics broadened to vancomycin and zosyn due to increased WBC with shock. Concern for worsening sepsis. Blood cultures ordered. Cefoxitin discontinued. Will consider adding hydrocortisone if minimal improvement in levophed requirement. Continue pressor support with levophed and vasopressin. -Lasix 40mg IV x1 given pleural effusions with increased PEEP requirement. Daily CXR and ABG. Pulmonary following. -Hold anti-hypertensives given hypotension. -Holding anticoagulation at this time given recent surgery. -Protonix 40mg IV qdaily for GI prophylaxis. SCDs for DVT prophylaxis. Tube feedings to be initiated at discretion of general surgery given recent hemicolectomy. Full Code. Dietary Evaluation Review Comments: Advance to diet as tolerated after the GI procedures. Monitor PO intake to meet 75% of her needs Expected Outcomes/Goals: maintain weight. Plan discussed with: Other MARVEL BA DO Mar 09, 2024 10:28
[2024-03-09] MEDS ORDERED: VANCOMYCIN PER PHARMACY 0 MG IV SCH (10:30)
[2024-03-09] MEDS ORDERED: CLINIMIX PER PHARMACY 0 ML IV SCH (10:45)
[2024-03-09] MEDS: FUROSEMIDE 40 MG/4 ML VIAL IV ONE (11:19)
[2024-03-09] MEDS: VANCOMYCIN 1GM/200ML PREMIX 200 ML IV ONE (11:20)
[2024-03-09] MEDS: PIPERACILLIN-TAZOB 3.375GM 100 ML IV SCH (12:37)
--- NOTE | 2024-03-09 13:47 | DVHPN2 ---
Progress Note - Dictate Date Seen: Mar 09, 2024 Has the PT tested + for MRSA If YES, has PT been informed?: Yes Medical Necessity Reason Pt with a Central, PICC or Fol: No Subjective Patient was seen and evaluated in follow up in the ICU. Overnight, patient developed acute hypercarbic respiratory failure, accessory muscle usage and was intubated for airway protection. Patient is s/p laparoscopic lysis of adhesions and laparoscopic right hemicolectomy. WBC 17.4. vital signs Vital Sign Date Time Temp Pulse Resp B/P (MAP) Pulse Ox O2 Delivery O2 Flow Rate FiO2 03/09/24 11:19 101/49 03/09/24 10:08 98 16 99 45 03/09/24 08:00 99.5 211.1 03/09/24 06:00 Mechanical Ventilator+ 03/08/24 15:36 10 Total Intake and Output 03/08/24 03/08/24 03/09/24 15:00 23:00 07:00 Intake Total 25 ml 385.00 ml 1155.25 ml Output Total 800 ml 900 ml Balance 25 ml -415.00 ml 255.25 ml medications Current Medications Medications Dose Ordered Sig/Wm Route Start Time Stop Time Status Last Admin Dose Admin Ondansetron HCl 4 mg Q4HP PRN IV 03/03/24 00:15 03/03/24 18:33 4 MG Nitroglycerin 0.4 mg Q5MINP PRN SL 03/03/24 00:15 Morphine Sulfate 2 mg Q30M PRN IV 03/03/24 00:15 Pantoprazole Sodium 40 mg DAILY IV 03/03/24 10:00 03/09/24 09:25 40 MG Morphine Sulfate 2 mg Q2HP PRN IV 03/08/24 12:45 Acetaminophen/ Hydrocodone Bitart 1 tab Q4HPRN PRN PO 03/08/24 12:45 Acetaminophen/ Hydrocodone Bitart 1 tab Q4HP PRN PO 03/08/24 12:45 Potassium Chloride/Dextrose/ Sod Cl 1,000 ml @ 75 mls/hr [id number] IV 03/08/24 12:45 03/09/24 09:26 75 MLS/HR Norepinephrine Bitartrate 250 ml @ 3.75 mls/hr Q24H IV 03/08/24 17:15 03/08/24 19:00 3.75 MLS/HR Midazolam HCl 50 ml @ 1 mls/hr Q24H IV 03/08/24 17:15 03/09/24 07:44 2 MLS/HR Fentanyl Citrate 250 ml @ 2.5 mls/hr Q24H IV 03/08/24 17:15 03/08/24 18:30 2.5 MLS/HR Vancomycin HCl 0 ml @ 0 mls/hr UD IV 03/09/24 10:30 UNV Piperacillin Sod/ Tazobactam Sod 100 ml @ 25 mls/hr Q8HR IV 03/09/24 12:00 Amino Acids 0 ml @ 0 mls/hr PER PHARMACY IV 03/09/24 10:45 UNV objective GENERAL: Intubated on ventilator. LUNGS: Decreased breath sounds. CARDIOVASCULAR: Heart sounds are good. ABDOMEN: Soft. laboratory and microbiology Laboratory Tests 03/09/24 04:36 Test 03/09/24 04:36 Range/Units Serum Glucose 193 H 74-106 mg/dL Problem List Colonic mass found on colonoscopy. GI Bleed. Anemia. HTN. HLD. H/O DVT. Assessment/Plan Continued all current supportive medical care. Morphine and [place] for pain management. GI prophylactics. Vasopressors for hemodynamic support. IV antibiotics as ordered. Additional plan as per the hospital course. Critical care time of 45 minutes provided to include time spent evaluation of patient at bedside, when appropriate patient/family education for diagnosis, treatment plan, review of pertinent medical information and discussion of care with specialty providers and PCP. Mechanical ventilator parameters, treatment and adjustments have personally been reviewed by me and treatment plan by blue line operator has also been reviewed. Dietary Evaluation Review Comments: Advance to diet as tolerated after the GI procedures. Monitor PO intake to meet 75% of her needs Expected Outcomes/Goals: maintain weight. Plan discussed with: Other MARIANGEL SHOEMAKER MD Mar 09, 2024 12:08
[2024-03-09 14:23] LABS: Magnesium 1.9 mg/dL (1.6-2.6)
[2024-03-09 14:25] LABS: Phosphorus 4.4 mg/dL (2.4-5.1)
[2024-03-09 15:38] LABS: Base Excess -1.9 mmol/L (-2.0-3.0)
[2024-03-09] MEDS: ACETAMINOPHEN IV 1000 MG/100ML (10MG/ML) IV PRN (16:06)
[2024-03-09 17:21] LABS: Base Excess -2.3 mmol/L (-2.0-3.0)
--- NOTE | 2024-03-09 18:19 | DVHPN2 ---
Progress Note Date Seen: Mar 09, 2024 Resident Creating Document: DESTINY TENA RESIDENT Has the PT tested + for MRSA If YES, has PT been informed?: Yes Medical Necessity Reason Pt with a Central, PICC or Fol: No Medical Necessity Reason This is an 83-year-old female who came to the Emergency Department with profound anemia. The patient had colonoscopy, identifying a malignant-appearing lesion with the pathology report indicating carcinoma. She is now s/p Laparoscopic lysis of adhesions and laparoscopic right hemicolectomy. We will surgery patient had some respiratory difficulties therefore she was intubated. This morning patient was in [facility] on mechanical ventilation. Endorses by the bedside. Patient has no new no complaint. Her H&H is stable. Subjective Review of Systems Unable to get this information as patient will is on ventilator right now. For nutrition she is currently on Clinimix. Objective vital signs Vital Sign Date Time Temp Pulse Resp B/P (MAP) Pulse Ox O2 Delivery O2 Flow Rate FiO2 03/09/24 17:45 100.6 99 12 96/46 (63) 98 213.1 82/55 (64) 03/09/24 16:20 35 03/09/24 16:00 Mechanical Ventilator+ 03/08/24 15:36 10 Total Intake and Output 03/08/24 03/08/24 03/09/24 15:00 23:00 07:00 Intake Total 25 ml 385.00 ml 1155.25 ml Output Total 800 ml 900 ml Balance 25 ml -415.00 ml 255.25 ml medications Current Medications Medications Dose Ordered Sig/Wm Route Start Time Stop Time Status Last Admin Dose Admin Ondansetron HCl 4 mg Q4HP PRN IV 03/03/24 00:15 03/03/24 18:33 4 MG Nitroglycerin 0.4 mg Q5MINP PRN SL 03/03/24 00:15 Morphine Sulfate 2 mg Q30M PRN IV 03/03/24 00:15 Pantoprazole Sodium 40 mg DAILY IV 03/03/24 10:00 03/09/24 09:25 40 MG Morphine Sulfate 2 mg Q2HP PRN IV 03/08/24 12:45 Acetaminophen/ Hydrocodone Bitart 1 tab Q4HPRN PRN PO 03/08/24 12:45 Acetaminophen/ Hydrocodone Bitart 1 tab Q4HP PRN PO 03/08/24 12:45 Potassium Chloride/Dextrose/ Sod Cl 1,000 ml @ 75 mls/hr [id number] IV 03/08/24 12:45 03/09/24 09:26 75 MLS/HR Norepinephrine Bitartrate 250 ml @ 3.75 mls/hr Q24H IV 03/08/24 17:15 03/08/24 19:00 3.75 MLS/HR Midazolam HCl 50 ml @ 1 mls/hr Q24H IV 03/08/24 17:15 03/09/24 07:44 2 MLS/HR Fentanyl Citrate 250 ml @ 2.5 mls/hr Q24H IV 03/08/24 17:15 03/09/24 13:42 12.5 MLS/HR Vancomycin HCl 0 ml @ 0 mls/hr UD IV 03/09/24 10:30 Piperacillin Sod/ Tazobactam Sod 100 ml @ 25 mls/hr Q8HR IV 03/09/24 12:00 03/09/24 16:18 25 MLS/HR Amino Acids 0 ml @ 0 mls/hr PER PHARMACY IV 03/09/24 10:45 Vancomycin HCl 200 ml @ 200 mls/hr Q18H IV 03/10/24 05:00 Amino Acids/ Electrolytes/ Dextrose 1,000 ml @ 41 mls/hr DAILY@2200 IV 03/09/24 22:00 Diagnostic Test (Pha) 1 strip Q6HR 03/10/24 00:00 Insulin Human Regular FOLLOW SLIDING SCALE Q6HR SC 03/10/24 00:00 Dextrose 50 ml UD IV 03/10/24 00:00 Acetaminophen 1,000 mg Q8HPRN PRN IV 03/09/24 15:30 03/09/24 16:06 1,000 MG Examination General: Well-developed well-nourished on mechanical ventilation, sleeping/sedated HEENT: Pale conjunctiva, otherwise normocephalic atraumatic extraocular movements are intact Heart: Regular rate and rhythm Abdomen: Dressing dry Extremity no clubbing cyanosis or edema laboratory and microbiology Laboratory Tests 03/09/24 04:36 Test 03/09/24 04:36 Range/Units Serum Glucose 193 H 74-106 mg/dL Microbiology Date/Time Source Procedure Growth Status 03/08/24 20:36 Trachea Gram Stain - Final Resulted 03/08/24 20:36 Trachea Respiratory Culture - Preliminary Resulted Problem List/Assessment/Plan Problem List/Assessment/Plan 1) Right colon cancer s/p hemicolectomy 03/08 2) Anemia 2/2 GI bleed s/p 4 units PRBCs 3) HTN 4) HLD 5) H/O DVT 7) Acute Respiratory Failure Assessment/Plan 1.SURGERY FOLLOWING, pathology report pending 2. Currently on Clinimix. We will maintain her on this for now. However, should she need long-term nutrition consider regular TPN 3. -Protonix 40mg IV qdaily for GI prophylaxis. 4. On mechanical ventilation management per primary team 5.-Hold anti-hypertensives given hypotension. 6.-Holding anticoagulation at this time given recent surgery. 7 SCDs for DVT prophylaxis. Goal of care discussed with for more than 18 minute: Full code Case and plan discussed with Dr. Villanueva Plan discussed with: Other Dietary Evaluation Review Comments: Advance to diet as tolerated after the GI procedures. Monitor PO intake to meet 75% of her needs Expected Outcomes/Goals: maintain weight. DESTINY TENA RESIDENT Mar 09, 2024 18:19
--- NOTE | 2024-03-09 20:10 | DVHPN2 ---
Progress Note Date Seen: Mar 09, 2024 Has the PT tested + for MRSA If YES, has PT been informed?: Yes Medical Necessity Reason Pt with a Central, PICC or Fol: No Subjective Review of Systems Pt was transferred to step down from OR, subsequently intubated and place on MV support. I was never notified of these occurrences. Objective vital signs Vital Sign Date Time Temp Pulse Resp B/P (MAP) Pulse Ox O2 Delivery O2 Flow Rate FiO2 03/09/24 18:45 99.9 98 12 111/47 (68) 99 211.8 104/98 (100) 03/09/24 18:06 35 03/09/24 18:00 Mechanical Ventilator+ 03/08/24 15:36 10 Total Intake and Output 03/08/24 03/08/24 03/09/24 15:00 23:00 07:00 Intake Total 25 ml 385.00 ml 1246.00 ml Output Total 800 ml 900 ml Balance 25 ml -415.00 ml 346.00 ml medications Current Medications Medications Dose Ordered Sig/Wm Route Start Time Stop Time Status Last Admin Dose Admin Ondansetron HCl 4 mg Q4HP PRN IV 03/03/24 00:15 03/03/24 18:33 4 MG Nitroglycerin 0.4 mg Q5MINP PRN SL 03/03/24 00:15 Morphine Sulfate 2 mg Q30M PRN IV 03/03/24 00:15 Pantoprazole Sodium 40 mg DAILY IV 03/03/24 10:00 03/09/24 09:25 40 MG Morphine Sulfate 2 mg Q2HP PRN IV 03/08/24 12:45 Acetaminophen/ Hydrocodone Bitart 1 tab Q4HPRN PRN PO 03/08/24 12:45 Acetaminophen/ Hydrocodone Bitart 1 tab Q4HP PRN PO 03/08/24 12:45 Potassium Chloride/Dextrose/ Sod Cl 1,000 ml @ 75 mls/hr [id number] IV 03/08/24 12:45 03/09/24 09:26 75 MLS/HR Norepinephrine Bitartrate 250 ml @ 3.75 mls/hr Q24H IV 03/08/24 17:15 03/08/24 19:00 3.75 MLS/HR Midazolam HCl 50 ml @ 1 mls/hr Q24H IV 03/08/24 17:15 03/09/24 07:44 2 MLS/HR Fentanyl Citrate 250 ml @ 2.5 mls/hr Q24H IV 03/08/24 17:15 03/09/24 13:42 12.5 MLS/HR Vancomycin HCl 0 ml @ 0 mls/hr UD IV 03/09/24 10:30 Piperacillin Sod/ Tazobactam Sod 100 ml @ 25 mls/hr Q8HR IV 03/09/24 12:00 03/09/24 16:18 25 MLS/HR Amino Acids 0 ml @ 0 mls/hr PER PHARMACY IV 03/09/24 10:45 Vancomycin HCl 200 ml @ 200 mls/hr Q18H IV 03/10/24 05:00 Amino Acids/ Electrolytes/ Dextrose 1,000 ml @ 41 mls/hr DAILY@2200 IV 03/09/24 22:00 Diagnostic Test (Pha) 1 strip Q6HR 03/10/24 00:00 Insulin Human Regular FOLLOW SLIDING SCALE Q6HR SC 03/10/24 00:00 Dextrose 50 ml UD IV 03/10/24 00:00 Acetaminophen 1,000 mg Q8HPRN PRN IV 03/09/24 15:30 03/09/24 16:06 1,000 MG Dexmedetomidine HCl 400 mcg/ Dextrose 100 ml @ 3.835 mls/ hr Q24H IV 03/09/24 18:30 Examination Opens eyes, seems somnolent but arousable. Intubated with mechanical ventilator support. Minimal vent settings. Afebrile. Hemodynamically unstable, minimal vasopressor support. Abdomen soft, ND and seemingly NT. Dressings C/D/I.. Labs reviewed. Hgb stable. Leukocytosis likely reactive. laboratory and microbiology Laboratory Tests 03/09/24 04:36 Test 03/09/24 04:36 Range/Units Serum Glucose 193 H 74-106 mg/dL Microbiology Date/Time Source Procedure Growth Status 03/08/24 20:36 Trachea Gram Stain - Final Resulted 03/08/24 20:36 Trachea Respiratory Culture - Preliminary Resulted Labs and/or images reviewed: Labs reviewed by me Problem List/Assessment/Plan Problems(with codes): (1) Colon cancer (2) Ascending colon malignant neoplasm Problem List/Assessment/Plan Neuro: Continue with minimal sedation. Cardio: Continue Vasopressor support and IVF. Wean vasopressor as tolerated. DVT prophylaxis. Continuous BP and CVP monitoring. Pulmonary: Continue vent support. Appreciater Dr. Meza assistance. Pt is too weak for extubation. GI: GI prophylaxis. OGT to continuous suction at 80 mm Hg. Will initiate TF tomorrow if not strong enough to extubate. Hold clinimix. . Strict Is and Os. Negrete to gravity. Replace electrolytes as needed. Heme/ID. Agree with Zosyn. D/C Vancomyci orders. Unlikely sepsis or infectious process. POD 1 Fever likely ATX. Wait for Cx. Endocribe. Tight glycemic control. Musculoskeletal: Passive ROM. Skin. Pressure ulcer precautions and skin care. Plan discussed with: Other (RN, Dr. Meza and Dr. Mera.) Dietary Evaluation Review Comments: Advance to diet as tolerated after the GI procedures. Monitor PO intake to meet 75% of her needs Expected Outcomes/Goals: maintain weight. SUBHASH DELGADO MD Mar 09, 2024 20:10
[2024-03-09] MEDS: AMINO ACID INFUSION IN D10W 1,000 ML IV SCH (21:12)
--- NOTE | 2024-03-09 21:37 | DVHPN2 ---
Progress Note - Dictate Date Seen: Mar 09, 2024 Has the PT tested + for MRSA If YES, has PT been informed?: Yes Medical Necessity Reason Pt with a Central, PICC or Fol: Yes The following are medically ne: Serrano Catheter Reason for serrano catheter: Strict I&O Subjective Patient seen and examined at bedside. Sedated, intubated on mechanical ventilator. Overnight events reviewed. vital signs Vital Sign Date Time Temp Pulse Resp B/P (MAP) Pulse Ox O2 Delivery O2 Flow Rate FiO2 03/09/24 20:30 99.3 92 14 125/56 (79) 100 210.7 106/97 (100) 03/09/24 20:15 40 03/09/24 20:00 Mechanical Ventilator+ 03/08/24 15:36 10 Total Intake and Output 03/08/24 03/08/24 03/09/24 15:00 23:00 07:00 Intake Total 25 ml 385.00 ml 1246.00 ml Output Total 800 ml 900 ml Balance 25 ml -415.00 ml 346.00 ml medications Current Medications Medications Dose Ordered Sig/Wm Route Start Time Stop Time Status Last Admin Dose Admin Ondansetron HCl 4 mg Q4HP PRN IV 03/03/24 00:15 03/03/24 18:33 4 MG Nitroglycerin 0.4 mg Q5MINP PRN SL 03/03/24 00:15 Morphine Sulfate 2 mg Q30M PRN IV 03/03/24 00:15 Pantoprazole Sodium 40 mg DAILY IV 03/03/24 10:00 03/09/24 09:25 40 MG Morphine Sulfate 2 mg Q2HP PRN IV 03/08/24 12:45 Acetaminophen/ Hydrocodone Bitart 1 tab Q4HPRN PRN PO 03/08/24 12:45 Acetaminophen/ Hydrocodone Bitart 1 tab Q4HP PRN PO 03/08/24 12:45 Potassium Chloride/Dextrose/ Sod Cl 1,000 ml @ 75 mls/hr [id number] IV 03/08/24 12:45 03/09/24 09:26 75 MLS/HR Midazolam HCl 50 ml @ 1 mls/hr Q24H IV 03/08/24 17:15 03/09/24 07:44 2 MLS/HR Fentanyl Citrate 250 ml @ 2.5 mls/hr Q24H IV 03/08/24 17:15 03/09/24 13:42 12.5 MLS/HR Vancomycin HCl 0 ml @ 0 mls/hr UD IV 03/09/24 10:30 Piperacillin Sod/ Tazobactam Sod 100 ml @ 25 mls/hr Q8HR IV 03/09/24 12:00 03/09/24 21:12 25 MLS/HR Vancomycin HCl 200 ml @ 200 mls/hr Q18H IV 03/10/24 05:00 Amino Acids/ Electrolytes/ Dextrose 1,000 ml @ 41 mls/hr DAILY@2200 IV 03/09/24 22:00 Diagnostic Test (Pha) 1 strip Q6HR 03/10/24 00:00 Insulin Human Regular FOLLOW SLIDING SCALE Q6HR SC 03/10/24 00:00 Dextrose 50 ml UD IV 03/10/24 00:00 Acetaminophen 1,000 mg Q8HPRN PRN IV 03/09/24 15:30 03/09/24 16:06 1,000 MG Dexmedetomidine HCl 400 mcg/ Dextrose 100 ml @ 3.835 mls/ hr Q24H IV 03/09/24 18:30 Norepinephrine Bitartrate 250 ml @ 3.75 mls/hr Q24H IV 03/09/24 21:45 UNV objective Gen.: Patient lying in bed in medical ICU. Sedated, intubated on mechanical ventilator. Head: Normocephalic, atraumatic. Eyes: PERRLA. Ears: Normal external anatomy. Throat: Endotracheal tube and orogastric tube in place. Neck: Supple, trachea midline. Chest: Transmitted breath sounds bilaterally. Decreased air entry bilaterally. No wheezing. Bibasilar crackles. Cardiovascular: Positive S1, positive S2. Regular rate and rhythm. Abdomen: Positive bowel sounds in all 4 quadrants. Soft, nontender, nondistended. : Serrano in place. Normal external genitalia. Rectal: Deferred. Skin: Warm, dry. Intact. Extremities: 2+ radial pulses bilaterally. No lower extremity edema. Neuro: Sedated. laboratory and microbiology Laboratory Tests 03/09/24 04:36 Test 03/09/24 04:36 Range/Units Serum Glucose 193 H 74-106 mg/dL Assessment/Plan Impression: Acute hypoxic respiratory failure On mechanical ventilator Pulmonary edema Pleural effusions Atelectasis Obesity Events: CPAP trial with PS 8, PEEP of 5. Sedated with fentanyl 25 mcg/hr OK to start Precedex. Off Levophed. Patient is febrile - IV Tylenol. Continue antibiotics Diurese w/ Lasix Monitor renal function Place on full vent support overnight. Rest of plan as noted below Plan: s/p intubation on mechanical ventilator. On AC mode with RR 16, VT 450, PEEP 8, FiO2 40% CXR notable for pulmonary edema. CT chest demonstrates bilateral pleural effusions, atelectasis ABG reviewed. High IPAP pressures could be required to achieve ventilation Limited chest U/S notable for B-lines suggestive of pulmonary interstitial edema. Lasix 20 mg IVP x1 Already received Lasix 40 mg Titrate FIO2 to keep O2 saturation above 90%. VAP bundle. Daily ABG and CXR while intubated Sedated for ventilatory synchrony Antibiotics. F/u cultures. Start pressors if necessary to maintain a mean arterial blood pressure greater than 65 mmHg. Diurese to maintain euvolemia. Monitor renal function Monitor electrolytes. Supplement as necessary. Monitor ins and outs. Diet and lifestyle modifications for weight reduction Obesity - complicates all care. GI prophylaxis. DVT prophylaxis. Prognosis: Poor given patient's multiple co-morbidities. Condition: Critical Rest of plan per hospitalist and other consultants. A total of 35 minutes of critical care time was spent reviewing the patient record, examining the patient, making a diagnostic and therapeutic plan, discussing this plan with the medical personnel, following up on diagnostic studies and following the patient for clinical stability excluding any and all procedures. At least 50% of this time was spent in direct, [id number] contact. Thank you Dr. Joselito Marroquin MD, for allowing me to participate in this patient's care. Further recommendations will depend on the patient's clinical course. Please do not hesitate to contact me if you have any questions or concerns. This medical document was created using an electronic medical record system with [employer] dictation system. Although these documentations are being carefully reviewed, there may still be some phonetic and typographical changes. The errors are purely typographical, due to imperfection on the software program, and do not reflect any compromise in the patient's medical care. Dietary Evaluation Review Comments: Advance to diet as tolerated after the GI procedures. Monitor PO intake to meet 75% of her needs Expected Outcomes/Goals: maintain weight. Plan discussed with: Other (RN) Critical Care Time(min): 35 VICK ARANA MD Mar 09, 2024 21:37
[2024-03-09] MEDS: NOREPINEPHRINE 8 MG/250ML KIT 250 ML IV SCH (21:44)
[2024-03-10] VITALS (105 sets, daily range): BP systolic 53–173; BP diastolic 35–100; PULSE 79–109; RESP 13–41; TEMP 99.1–100.2; O2SAT 98–100
[2024-03-10] MEDS ORDERED: DEXTROSE (50%) 50ML SYRG IV SCH
[2024-03-10] MEDS: InsuLIN REG 1unit/0.01ml Soln (100units/ml) SC SCH
[2024-03-10] MEDS: ACCU-CHEK COMFORT CURVE STRIP VI SCH (00:29)
--- NOTE | 2024-03-10 04:12 | DVH ---
CHEST RADIOGRAPH Indication:VENTED Technique: Single frontal view of the chest was obtained Comparison: XY CHEST XRAY 1 VIEW on DOS: 03/09/24, XY CHEST PORTABLE on DOS: 03/08/24, XY CHEST THEODORE BLE on DOS: 03/08/24, XY CHEST PORTABLE on DOS: 03/02/24, XY CHEST XRAY 1 VIEW on DOS: 03/09/24 FINDINGS: Lines and Tubes: Endotracheal tube, enteric catheter and left central venous catheter in satisfactory position. Lungs: Multifocal airspace disease. Pleura: Small left pleural effusion. No pneumothorax. Cardiomediastinal contours: Unremarkable Bones: Unremarkable IMPRESSION: Lines and tubes in satisfactory position. No significant interval change.
[2024-03-10 04:51] LABS: Basophils # (auto) 0.1 10 ^3/uL (0-0.2); Eosinophils # (auto) 0 10 ^3/uL (0-0.8); Hemoglobin 10.7 g/dL (12.2-16.2); Monocytes # (auto) 0.6 10 ^3/uL (0-1.3)
[2024-03-10 04:54] LABS: Basophils % (auto) 0.3 % (0.0-2.0); Eosinophils % (auto) 0.1 % (0.0-7.0); Hematocrit 34.4 % (36.0-46.0); Lymphocytes # (auto) 0.6 10 ^3/uL (0.4-5.4); Lymphocytes % (auto) 3.1 % (10.0-50.0); Mean Corpuscular Hgb Conc. 31.2 g/dL (32.0-36.0); Mean Corpuscular Volume 80.1 fL (80.0-100.0); Monocytes % (auto) 3.1 % (0.0-12.0); Neutrophils # (auto) 17.1 10 ^3/uL (1.6-8.6); Neutrophils % (auto) 93.4 % (37.0-80.0); Platelet Count (auto) 163 10^3/uL (140-450); Red Cell Distribution Width 25.9 % (11.8-14.3); White Blood Cell 18.3 10^3/uL (4.4-10.8)
[2024-03-10] MEDS: VANCOMYCIN 1GM/200ML PREMIX 200 ML IV SCH (05:07)
[2024-03-10 05:13] LABS: Albumin 3.1 g/dL (3.2-4.8); Alkaline Phosphatase 49 U/L (46-116); Anion Gap 11 (5-15); Aspartate Aminotransferase 8 U/L (13-40); BUN/Creatinine Ratio 16.4 (10.0-20.0); Blood Urea Nitrogen 18 mg/dL (9-23); Calcium 8.2 mg/dL (8.7-10.4); Carbon Dioxide 21 mmol/L (20-31); Chloride 104 mmol/L (98-107); Glucose 152 mg/dL (74-106); Magnesium 1.8 mg/dL (1.6-2.6); Potassium 3.9 mmol/L (3.5-5.1); Sodium 136 mmol/L (136-145)
[2024-03-10 05:14] LABS: Bilirubin, Total 1.2 mg/dL (0.2-1.0); Total Protein 5.1 g/dL (5.7-8.2)
[2024-03-10 05:16] LABS: Alanine Aminotransferase < 9 U/L (7-40)
[2024-03-10 06:05] LABS: Giant Platelets Few; Platelet Estimate Adequate
[2024-03-10 06:06] LABS: Anisocytosis Slight
[2024-03-10] MEDS: FUROSEMIDE 20 MG/2 ML VIAL IV ONE (06:41)
[2024-03-10 08:04] LABS: Base Excess -3.1 mmol/L (-2.0-3.0)
--- NOTE | 2024-03-10 09:13 | DVHPN2 ---
Progress Note Date Seen: Mar 10, 2024 Has the PT tested + for MRSA If YES, has PT been informed?: Yes Medical Necessity Reason Pt with a Central, PICC or Fol: Yes The following are medically ne: Serrano Catheter Reason for serrano catheter: Strict I&O Subjective Review of Systems Pt remains intubated with mechanical ventilator support. She's awake and alert. Follows command. Objective vital signs Vital Sign Date Time Temp Pulse Resp B/P (MAP) Pulse Ox O2 Delivery O2 Flow Rate FiO2 03/10/24 08:12 99 14 82/72 (75) 99 35 03/10/24 08:00 99.3 99.3 03/10/24 06:00 Mechanical Ventilator+ 03/08/24 15:36 10 Total Intake and Output 03/09/24 03/09/24 03/10/24 15:00 23:00 07:00 Intake Total 778.75 ml 541.250 ml 798.750 ml Output Total 350 ml 275 ml Balance 778.75 ml 191.250 ml 523.750 ml medications Current Medications Medications Dose Ordered Sig/Wm Route Start Time Stop Time Status Last Admin Dose Admin Ondansetron HCl 4 mg Q4HP PRN IV 03/03/24 00:15 03/03/24 18:33 4 MG Nitroglycerin 0.4 mg Q5MINP PRN SL 03/03/24 00:15 Morphine Sulfate 2 mg Q30M PRN IV 03/03/24 00:15 Pantoprazole Sodium 40 mg DAILY IV 03/03/24 10:00 03/09/24 09:25 40 MG Morphine Sulfate 2 mg Q2HP PRN IV 03/08/24 12:45 Acetaminophen/ Hydrocodone Bitart 1 tab Q4HPRN PRN PO 03/08/24 12:45 Acetaminophen/ Hydrocodone Bitart 1 tab Q4HP PRN PO 03/08/24 12:45 Potassium Chloride/Dextrose/ Sod Cl 1,000 ml @ 75 mls/hr [id number] IV 03/08/24 12:45 03/10/24 08:17 75 MLS/HR Midazolam HCl 50 ml @ 1 mls/hr Q24H IV 03/08/24 17:15 03/09/24 07:44 2 MLS/HR Fentanyl Citrate 250 ml @ 2.5 mls/hr Q24H IV 03/08/24 17:15 03/09/24 13:42 12.5 MLS/HR Vancomycin HCl 0 ml @ 0 mls/hr UD IV 03/09/24 10:30 Piperacillin Sod/ Tazobactam Sod 100 ml @ 25 mls/hr Q8HR IV 03/09/24 12:00 03/10/24 06:41 25 MLS/HR Vancomycin HCl 200 ml @ 200 mls/hr Q18H IV 03/10/24 05:00 03/10/24 05:07 200 MLS/HR Amino Acids/ Electrolytes/ Dextrose 1,000 ml @ 41 mls/hr DAILY@2200 IV 03/09/24 22:00 Diagnostic Test (Pha) 1 strip Q6HR 03/10/24 00:00 03/10/24 06:00 1 STRIP Insulin Human Regular FOLLOW SLIDING SCALE Q6HR SC 03/10/24 00:00 03/10/24 06:00 2 UNITS Dextrose 50 ml UD IV 03/10/24 00:00 Acetaminophen 1,000 mg Q8HPRN PRN IV 03/09/24 15:30 03/09/24 16:06 1,000 MG Dexmedetomidine HCl 400 mcg/ Dextrose 100 ml @ 3.835 mls/ hr Q24H IV 03/09/24 18:30 Norepinephrine Bitartrate 250 ml @ 3.75 mls/hr Q24H IV 03/09/24 21:45 03/09/24 21:44 1.875 MLS/HR Examination Alert and awake. Follows commands. Intubated with mechanical ventilator support. Minimal vent settings. Normal HR and BP. No vasoprressors. Abdomen soft, Nd and NT. Incisions C/D/I/ Labs reviewed. Persistent leukocytosis. Rest of labs acceptable. CXR B/L pleural effusions. laboratory and microbiology Laboratory Tests 03/10/24 04:33 Test 03/10/24 04:33 Range/Units Serum Glucose 152 H 74-106 mg/dL Microbiology Date/Time Source Procedure Growth Status 03/08/24 20:36 Trachea Gram Stain - Final Resulted 03/08/24 20:36 Trachea Respiratory Culture - Preliminary Resulted Labs and/or images reviewed: Labs reviewed by me Problem List/Assessment/Plan Problems(with codes): (1) Colon cancer Problem List/Assessment/Plan Neuro: Continue with minimal sedation. Cardio: Continue IVF. DVT prophylaxis. Continuous BP and CVP monitoring. Pulmonary: Continue vent support.Attempt extubation if meets criteria. Appreciater Dr. Meza assistance. GI: GI prophylaxis. OGT to continuous suction at 80 mm Hg. If extubates, will nitiate CLD. If not, initiate TF. Hold clinimix. . Strict Is and Os. Serrano to gravity. Replace electrolytes as needed. Heme/ID. Agree with Zosyn. Continue Vancomycin for now given persistent leukocytosis. Wait for Cx. Endocrine. Tight glycemic control. Musculoskeletal: Passive ROM. Skin. Pressure ulcer precautions and skin care. Plan discussed with: Other (RN) My Orders My Orders Orders - SUBHASH DELGADO MD Procedure Category Date Status Time Ventilator Orders RT 03/09/24 Transmitted 20:00 Norepinephrine 8 PHA 03/09/24 In Process Mg/250ml Kit 21:45 Dietary Evaluation Review Comments: Advance to diet as tolerated after the GI procedures. Monitor PO intake to meet 75% of her needs Expected Outcomes/Goals: maintain weight. SUBHASH DELGADO MD Mar 10, 2024 09:13
[2024-03-10 09:47] LABS: Base Excess -3.3 mmol/L (-2.0-3.0)
--- NOTE | 2024-03-10 12:07 | DVHPN2 ---
Progress Note - Dictate Date Seen: Mar 10, 2024 Has the PT tested + for MRSA If YES, has PT been informed?: Yes Medical Necessity Reason Pt with a Central, PICC or Fol: Yes The following are medically ne: Serrano Catheter Reason for serrano catheter: Strict I&O Subjective Patient intubated. Awake and following commands during CPAP trial. vital signs Vital Sign Date Time Temp Pulse Resp B/P (MAP) Pulse Ox O2 Delivery O2 Flow Rate FiO2 03/10/24 10:06 106 24 139/55 (83) 98 35 03/10/24 08:00 99.3 99.3 03/10/24 06:00 Mechanical Ventilator+ 03/08/24 15:36 10 Total Intake and Output 03/09/24 03/09/24 03/10/24 15:00 23:00 07:00 Intake Total 778.75 ml 541.250 ml 798.750 ml Output Total 350 ml 275 ml Balance 778.75 ml 191.250 ml 523.750 ml medications Current Medications Medications Dose Ordered Sig/Wm Route Start Time Stop Time Status Last Admin Dose Admin Ondansetron HCl 4 mg Q4HP PRN IV 03/03/24 00:15 03/03/24 18:33 4 MG Nitroglycerin 0.4 mg Q5MINP PRN SL 03/03/24 00:15 Morphine Sulfate 2 mg Q30M PRN IV 03/03/24 00:15 Pantoprazole Sodium 40 mg DAILY IV 03/03/24 10:00 03/10/24 10:31 40 MG Morphine Sulfate 2 mg Q2HP PRN IV 03/08/24 12:45 Acetaminophen/ Hydrocodone Bitart 1 tab Q4HPRN PRN PO 03/08/24 12:45 Acetaminophen/ Hydrocodone Bitart 1 tab Q4HP PRN PO 03/08/24 12:45 Potassium Chloride/Dextrose/ Sod Cl 1,000 ml @ 75 mls/hr [id number] IV 03/08/24 12:45 03/10/24 08:17 75 MLS/HR Midazolam HCl 50 ml @ 1 mls/hr Q24H IV 03/08/24 17:15 03/09/24 07:44 2 MLS/HR Fentanyl Citrate 250 ml @ 2.5 mls/hr Q24H IV 03/08/24 17:15 03/09/24 13:42 12.5 MLS/HR Vancomycin HCl 0 ml @ 0 mls/hr UD IV 03/09/24 10:30 Piperacillin Sod/ Tazobactam Sod 100 ml @ 25 mls/hr Q8HR IV 03/09/24 12:00 03/10/24 06:41 25 MLS/HR Vancomycin HCl 200 ml @ 200 mls/hr Q18H IV 03/10/24 05:00 03/10/24 05:07 200 MLS/HR Diagnostic Test (Pha) 1 strip Q6HR 03/10/24 00:00 03/10/24 06:00 1 STRIP Insulin Human Regular FOLLOW SLIDING SCALE Q6HR SC 03/10/24 00:00 03/10/24 06:00 2 UNITS Dextrose 50 ml UD IV 03/10/24 00:00 Acetaminophen 1,000 mg Q8HPRN PRN IV 03/09/24 15:30 03/09/24 16:06 1,000 MG Dexmedetomidine HCl 400 mcg/ Dextrose 100 ml @ 3.835 mls/ hr Q24H IV 03/09/24 18:30 03/10/24 09:57 3.835 MLS/HR Norepinephrine Bitartrate 250 ml @ 3.75 mls/hr Q24H IV 03/09/24 21:45 03/09/24 21:44 1.875 MLS/HR objective General: Intubated Lungs: CTA, no crackles Cardiovascular: RRR, no murmurs, no LE Edema Abdomen: Surgical incision without signs of erythema or fluctuance Neuro: Alert laboratory and microbiology Laboratory Tests 03/10/24 04:33 Test 03/10/24 04:33 Range/Units Serum Glucose 152 H 74-106 mg/dL Problem List 1) Colonic mass as noted on colonoscopy s/p hemicolectomy 03/08 2) Anemia 2/2 GI bleed s/p 4 units PRBCs 3) HTN 4) HLD 5) H/O DVT 6) Shock-Resolved 7) Acute Respiratory Failure 8) ANA MARIA Assessment/Plan -General surgery, Dr. Chakraborty consulted. Patient s/p hemicolectomy 03/08. -Hematology-oncology consulted for mass. Pathology report pending. -Continue vancomycin and zosyn due to increased WBC. Blood cultures pending. Patient off pressors since AM. Respiratory cultures show normal oropharyngeal tanvi. - Daily CXR and ABG. Pulmonary following. Failed CPAP trial due to tachypnea. Will attempt daily. -ANA MARIA developing likely due to recent diuresis with lasix. Will continue monitor, as patient on vancomycin and zosyn with concerns for nephrotoxicity. Will consider adding US renal if continues to rise. -Hold anti-hypertensives given hypotension. -Holding anticoagulation at this time given recent surgery. -Protonix 40mg IV qdaily for GI prophylaxis. SCDs for DVT prophylaxis. Tube feedings to be initiated at discretion of general surgery given recent hemicolectomy. Full Code. Dietary Evaluation Review Comments: Advance to diet as tolerated after the GI procedures. Monitor PO intake to meet 75% of her needs Expected Outcomes/Goals: maintain weight. Plan discussed with: Other MARVEL BA DO Mar 10, 2024 12:07
[2024-03-10] MEDS: MORPHINE SULFATE INJ 2 MG/ml SYRG IV PRN (15:22)
--- NOTE | 2024-03-10 18:06 | DVHPN2 ---
Progress Note Date Seen: Mar 10, 2024 Resident Creating Document: DESTINY TENA RESIDENT Has the PT tested + for MRSA If YES, has PT been informed?: Yes Medical Necessity Reason Pt with a Central, PICC or Fol: Yes The following are medically ne: Serrano Catheter Reason for serrano catheter: Strict I&O Medical Necessity Reason Colon cancer status post hemicolectomy. Patient intubated. Awake and following commands during CPAP trial. Subjective Review of Systems Unable to get this information as patient will is on ventilator right now. Patient intubated. Awake and following commands during CPAP trial. Objective vital signs Vital Sign Date Time Temp Pulse Resp B/P (MAP) Pulse Ox O2 Delivery O2 Flow Rate FiO2 03/10/24 16:24 101 14 56/48 (51) 100 35 03/10/24 16:00 100.2 100.2 03/10/24 12:00 Mechanical Ventilator+ 03/08/24 15:36 10 Total Intake and Output 03/09/24 03/09/24 03/10/24 15:00 23:00 07:00 Intake Total 778.75 ml 541.250 ml 798.750 ml Output Total 350 ml 275 ml Balance 778.75 ml 191.250 ml 523.750 ml medications Current Medications Medications Dose Ordered Sig/Wm Route Start Time Stop Time Status Last Admin Dose Admin Ondansetron HCl 4 mg Q4HP PRN IV 03/03/24 00:15 03/03/24 18:33 4 MG Nitroglycerin 0.4 mg Q5MINP PRN SL 03/03/24 00:15 Morphine Sulfate 2 mg Q30M PRN IV 03/03/24 00:15 Pantoprazole Sodium 40 mg DAILY IV 03/03/24 10:00 03/10/24 10:31 40 MG Morphine Sulfate 2 mg Q2HP PRN IV 03/08/24 12:45 03/10/24 15:22 2 MG Acetaminophen/ Hydrocodone Bitart 1 tab Q4HPRN PRN PO 03/08/24 12:45 Acetaminophen/ Hydrocodone Bitart 1 tab Q4HP PRN PO 03/08/24 12:45 Potassium Chloride/Dextrose/ Sod Cl 1,000 ml @ 75 mls/hr [id number] IV 03/08/24 12:45 03/10/24 08:17 75 MLS/HR Midazolam HCl 50 ml @ 1 mls/hr Q24H IV 03/08/24 17:15 03/09/24 07:44 2 MLS/HR Fentanyl Citrate 250 ml @ 2.5 mls/hr Q24H IV 03/08/24 17:15 03/09/24 13:42 12.5 MLS/HR Vancomycin HCl 0 ml @ 0 mls/hr UD IV 03/09/24 10:30 Piperacillin Sod/ Tazobactam Sod 100 ml @ 25 mls/hr Q8HR IV 03/09/24 12:00 03/10/24 13:48 25 MLS/HR Vancomycin HCl 200 ml @ 200 mls/hr Q18H IV 03/10/24 05:00 03/10/24 05:07 200 MLS/HR Diagnostic Test (Pha) 1 strip Q6HR 03/10/24 00:00 03/10/24 12:00 1 STRIP Insulin Human Regular FOLLOW SLIDING SCALE Q6HR SC 03/10/24 00:00 03/10/24 06:00 2 UNITS Dextrose 50 ml UD IV 03/10/24 00:00 Acetaminophen 1,000 mg Q8HPRN PRN IV 03/09/24 15:30 03/09/24 16:06 1,000 MG Dexmedetomidine HCl 400 mcg/ Dextrose 100 ml @ 3.835 mls/ hr Q24H IV 03/09/24 18:30 03/10/24 09:57 3.835 MLS/HR Norepinephrine Bitartrate 250 ml @ 3.75 mls/hr Q24H IV 03/09/24 21:45 03/09/24 21:44 1.875 MLS/HR Examination General: Intubated, awake. CPAP trial Lungs: CTA, no crackles Cardiovascular: RRR, no murmurs, no LE Edema Abdomen: Surgical incision without signs of erythema or fluctuance. warren intact Neuro: Alert laboratory and microbiology Laboratory Tests 03/10/24 04:33 Test 03/10/24 04:33 Range/Units Serum Glucose 152 H 74-106 mg/dL Microbiology Date/Time Source Procedure Growth Status 03/09/24 16:32 Blood Blood Culture - Preliminary NO GROWTH AFTER 24 HOURS OF INCUBATION. Resulted 03/08/24 20:36 Trachea Gram Stain - Final Resulted 03/08/24 20:36 Trachea Respiratory Culture - Preliminary Resulted Problem List/Assessment/Plan Problem List/Assessment/Plan 1) Right colon cancer s/p hemicolectomy 03/08. Gradually getting better 2) Anemia 2/2 GI bleed s/p 4 units PRBCs 3) HTN 4) HLD 5) H/O DVT 7) Acute Respiratory Failure --> cpap trial Assessment/Plan 1. Surgery following, pathology report pending 2. Clear fluid. full fluid once extubated and if can tolerate. 3. Protonix 40mg IV qdaily for GI prophylaxis. 4. On mechanical ventilation management per primary team 5.Hold anti-hypertensives given hypotension. 6.Holding anticoagulation at this time given recent surgery. 7 SCDs for DVT prophylaxis. Goal of care discussed with for more than 18 minute: Full code Case and plan discussed with Dr. Villanueva Plan discussed with: Patient Dietary Evaluation Review Comments: Advance to diet as tolerated after the GI procedures. Monitor PO intake to meet 75% of her needs Expected Outcomes/Goals: maintain weight. DESTINY TENA RESIDENT Mar 10, 2024 18:06
--- NOTE | 2024-03-10 18:07 | DVHPN2 ---
Progress Note - Dictate Date Seen: Mar 10, 2024 Has the PT tested + for MRSA If YES, has PT been informed?: Yes Medical Necessity Reason Pt with a Central, PICC or Fol: Yes The following are medically ne: Serrano Catheter Reason for serrano catheter: Strict I&O Subjective Patient was seen and evaluated in follow up in the ICU. Patient is intubated on ventilator. 35% FiO2. Patient undergoing CPAP trial. WBC 18.3, PRODUCT REPRESENTATIVE 1.10, CA 8.2. Respiratory culture is growing normal oropharyngeal tanvi. vital signs Vital Sign Date Time Temp Pulse Resp B/P (MAP) Pulse Ox O2 Delivery O2 Flow Rate FiO2 03/10/24 10:06 106 24 139/55 (83) 98 35 03/10/24 08:00 99.3 99.3 03/10/24 06:00 Mechanical Ventilator+ 03/08/24 15:36 10 Total Intake and Output 03/09/24 03/09/24 03/10/24 15:00 23:00 07:00 Intake Total 778.75 ml 541.250 ml 798.750 ml Output Total 350 ml 275 ml Balance 778.75 ml 191.250 ml 523.750 ml medications Current Medications Medications Dose Ordered Sig/Wm Route Start Time Stop Time Status Last Admin Dose Admin Ondansetron HCl 4 mg Q4HP PRN IV 03/03/24 00:15 03/03/24 18:33 4 MG Nitroglycerin 0.4 mg Q5MINP PRN SL 03/03/24 00:15 Morphine Sulfate 2 mg Q30M PRN IV 03/03/24 00:15 Pantoprazole Sodium 40 mg DAILY IV 03/03/24 10:00 03/10/24 10:31 40 MG Morphine Sulfate 2 mg Q2HP PRN IV 03/08/24 12:45 Acetaminophen/ Hydrocodone Bitart 1 tab Q4HPRN PRN PO 03/08/24 12:45 Acetaminophen/ Hydrocodone Bitart 1 tab Q4HP PRN PO 03/08/24 12:45 Potassium Chloride/Dextrose/ Sod Cl 1,000 ml @ 75 mls/hr [id number] IV 03/08/24 12:45 03/10/24 08:17 75 MLS/HR Midazolam HCl 50 ml @ 1 mls/hr Q24H IV 03/08/24 17:15 03/09/24 07:44 2 MLS/HR Fentanyl Citrate 250 ml @ 2.5 mls/hr Q24H IV 03/08/24 17:15 03/09/24 13:42 12.5 MLS/HR Vancomycin HCl 0 ml @ 0 mls/hr UD IV 03/09/24 10:30 Piperacillin Sod/ Tazobactam Sod 100 ml @ 25 mls/hr Q8HR IV 03/09/24 12:00 03/10/24 06:41 25 MLS/HR Vancomycin HCl 200 ml @ 200 mls/hr Q18H IV 03/10/24 05:00 03/10/24 05:07 200 MLS/HR Diagnostic Test (Pha) 1 strip Q6HR 03/10/24 00:00 03/10/24 06:00 1 STRIP Insulin Human Regular FOLLOW SLIDING SCALE Q6HR SC 03/10/24 00:00 03/10/24 06:00 2 UNITS Dextrose 50 ml UD IV 03/10/24 00:00 Acetaminophen 1,000 mg Q8HPRN PRN IV 03/09/24 15:30 03/09/24 16:06 1,000 MG Dexmedetomidine HCl 400 mcg/ Dextrose 100 ml @ 3.835 mls/ hr Q24H IV 03/09/24 18:30 03/10/24 09:57 3.835 MLS/HR Norepinephrine Bitartrate 250 ml @ 3.75 mls/hr Q24H IV 03/09/24 21:45 03/09/24 21:44 1.875 MLS/HR objective GENERAL: Intubated on ventilator. LUNGS: Decreased breath sounds. CARDIOVASCULAR: Heart sounds are good. ABDOMEN: Soft. laboratory and microbiology Laboratory Tests 03/10/24 04:33 Test 03/10/24 04:33 Range/Units Serum Glucose 152 H 74-106 mg/dL Problem List Colonic mass found on colonoscopy. GI Bleed. Anemia. HTN. HLD. H/O DVT. Assessment/Plan Continued all current supportive medical care. Morphine and [place] for pain management. GI prophylactics. Vasopressors for hemodynamic support. IV antibiotics as ordered. Additional plan as per the hospital course. Critical care time of 45 minutes provided to include time spent evaluation of patient at bedside, when appropriate patient/family education for diagnosis, treatment plan, review of pertinent medical information and discussion of care with specialty providers and PCP. Mechanical ventilator parameters, treatment and adjustments have personally been reviewed by me and treatment plan by rotary envelope machine operator has also been reviewed. Dietary Evaluation Review Comments: Advance to diet as tolerated after the GI procedures. Monitor PO intake to meet 75% of her needs Expected Outcomes/Goals: maintain weight. Plan discussed with: Other MARIANGEL SHOEMAKER MD Mar 10, 2024 11:48
--- NOTE | 2024-03-10 22:21 | DVHPN2 ---
Progress Note - Dictate Has the PT tested + for MRSA If YES, has PT been informed?: Yes Medical Necessity Reason Pt with a Central, PICC or Fol: Yes The following are medically ne: Serrano Catheter Reason for serrano catheter: Strict I&O vital signs Vital Sign Date Time Temp Pulse Resp B/P (MAP) Pulse Ox O2 Delivery O2 Flow Rate FiO2 03/10/24 22:00 99 14 142/55 (84) 100 35 03/10/24 21:00 100.2 100.2 03/10/24 20:00 Mechanical Ventilator+ 03/08/24 15:36 10 Total Intake and Output 03/09/24 03/09/24 03/10/24 15:00 23:00 07:00 Intake Total 778.75 ml 541.250 ml 898.750 ml Output Total 350 ml 275 ml Balance 778.75 ml 191.250 ml 623.750 ml medications Current Medications Medications Dose Ordered Sig/Wm Route Start Time Stop Time Status Last Admin Dose Admin Ondansetron HCl 4 mg Q4HP PRN IV 03/03/24 00:15 03/03/24 18:33 4 MG Nitroglycerin 0.4 mg Q5MINP PRN SL 03/03/24 00:15 Morphine Sulfate 2 mg Q30M PRN IV 03/03/24 00:15 Pantoprazole Sodium 40 mg DAILY IV 03/03/24 10:00 03/10/24 10:31 40 MG Morphine Sulfate 2 mg Q2HP PRN IV 03/08/24 12:45 03/10/24 15:22 2 MG Acetaminophen/ Hydrocodone Bitart 1 tab Q4HPRN PRN PO 03/08/24 12:45 Acetaminophen/ Hydrocodone Bitart 1 tab Q4HP PRN PO 03/08/24 12:45 Potassium Chloride/Dextrose/ Sod Cl 1,000 ml @ 75 mls/hr [id number] IV 03/08/24 12:45 03/10/24 21:09 75 MLS/HR Midazolam HCl 50 ml @ 1 mls/hr Q24H IV 03/08/24 17:15 03/09/24 07:44 2 MLS/HR Fentanyl Citrate 250 ml @ 2.5 mls/hr Q24H IV 03/08/24 17:15 03/09/24 13:42 12.5 MLS/HR Vancomycin HCl 0 ml @ 0 mls/hr UD IV 03/09/24 10:30 Piperacillin Sod/ Tazobactam Sod 100 ml @ 25 mls/hr Q8HR IV 03/09/24 12:00 03/10/24 22:02 25 MLS/HR Vancomycin HCl 200 ml @ 200 mls/hr Q18H IV 03/10/24 05:00 03/10/24 05:07 200 MLS/HR Diagnostic Test (Pha) 1 strip Q6HR 03/10/24 00:00 03/10/24 18:05 1 STRIP Insulin Human Regular FOLLOW SLIDING SCALE Q6HR SC 03/10/24 00:00 03/10/24 18:00 2 UNITS Dextrose 50 ml UD IV 03/10/24 00:00 Acetaminophen 1,000 mg Q8HPRN PRN IV 03/09/24 15:30 03/09/24 16:06 1,000 MG Dexmedetomidine HCl 400 mcg/ Dextrose 100 ml @ 3.835 mls/ hr Q24H IV 03/09/24 18:30 03/10/24 09:57 3.835 MLS/HR Norepinephrine Bitartrate 250 ml @ 3.75 mls/hr Q24H IV 03/09/24 21:45 03/09/24 21:44 1.875 MLS/HR laboratory and microbiology Laboratory Tests 03/10/24 04:33 Test 03/10/24 04:33 Range/Units Serum Glucose 152 H 74-106 mg/dL Dietary Evaluation Review Comments: Advance to diet as tolerated after the GI procedures. Monitor PO intake to meet 75% of her needs Expected Outcomes/Goals: maintain weight. PAUL ARGUETA [facility] Mar 10, 2024 22:21
[2024-03-11] VITALS (108 sets, daily range): BP systolic 62–152; BP diastolic 34–81; PULSE 65–92; RESP 9–29; TEMP 97.7–99.5; O2SAT 98–100
[2024-03-11 04:51] LABS: Basophils # (auto) 0 10 ^3/uL (0-0.2); Basophils % (auto) 0.2 % (0.0-2.0); Eosinophils # (auto) 0 10 ^3/uL (0-0.8); Monocytes # (auto) 0.8 10 ^3/uL (0-1.3)
[2024-03-11 04:53] LABS: Eosinophils % (auto) 0.3 % (0.0-7.0); Hematocrit 29.7 % (36.0-46.0); Hemoglobin 9.5 g/dL (12.2-16.2); Lymphocytes # (auto) 0.6 10 ^3/uL (0.4-5.4); Lymphocytes % (auto) 4.5 % (10.0-50.0); Mean Corpuscular Hemoglobin 25.2 pg (28.0-32.0); Mean Corpuscular Hgb Conc. 31.9 g/dL (32.0-36.0); Mean Corpuscular Volume 79.2 fL (80.0-100.0); Neutrophils # (auto) 11.3 10 ^3/uL (1.6-8.6); Platelet Count (auto) 166 10^3/uL (140-450); Red Blood Cells 3.75 10^6/uL (4.0-5.20); White Blood Cell 12.7 10^3/uL (4.4-10.8)
[2024-03-11 04:59] LABS: Red Cell Distribution Width 25.3 % (11.8-14.3)
[2024-03-11 05:10] LABS: Alanine Aminotransferase < 9 U/L (7-40); Alkaline Phosphatase 60 U/L (46-116); Anion Gap 6 (5-15); Aspartate Aminotransferase < 8 U/L (13-40); BUN/Creatinine Ratio 22.5 (10.0-20.0); Blood Urea Nitrogen 18 mg/dL (9-23); Carbon Dioxide 24 mmol/L (20-31); Chloride 104 mmol/L (98-107); Glucose 109 mg/dL (74-106); Magnesium 1.8 mg/dL (1.6-2.6); Potassium 3.5 mmol/L (3.5-5.1); Sodium 134 mmol/L (136-145)
[2024-03-11 05:11] LABS: Phosphorus 2.3 mg/dL (2.4-5.1); Total Protein 4.8 g/dL (5.7-8.2)
[2024-03-11 05:42] LABS: Anisocytosis Slight; Platelet Estimate Adequate
--- NOTE | 2024-03-11 10:14 | DVHPN2 ---
Progress Note - Dictate Date Seen: Mar 10, 2024 Has the PT tested + for MRSA If YES, has PT been informed?: Yes Medical Necessity Reason Pt with a Central, PICC or Fol: Yes The following are medically ne: Serrano Catheter Reason for serrano catheter: Strict I&O Subjective Patient seen and examined at bedside. Intubated on mechanical ventilator. Overnight events reviewed. vital signs Vital Sign Date Time Temp Pulse Resp B/P (MAP) Pulse Ox O2 Delivery O2 Flow Rate FiO2 03/11/24 09:47 92 11 125/49 (74) 99 30 03/11/24 06:00 97.7 97.7 03/11/24 06:00 Mechanical Ventilator+ Total Intake and Output 03/10/24 03/10/24 03/11/24 15:00 23:00 07:00 Intake Total 916.930 ml 946.9815 ml 664.970 ml Output Total 425 ml 300 ml Balance 916.930 ml 521.9815 ml 364.970 ml medications Current Medications Medications Dose Ordered Sig/Wm Route Start Time Stop Time Status Last Admin Dose Admin Ondansetron HCl 4 mg Q4HP PRN IV 03/03/24 00:15 03/03/24 18:33 4 MG Nitroglycerin 0.4 mg Q5MINP PRN SL 03/03/24 00:15 Morphine Sulfate 2 mg Q30M PRN IV 03/03/24 00:15 Pantoprazole Sodium 40 mg DAILY IV 03/03/24 10:00 03/11/24 09:56 40 MG Morphine Sulfate 2 mg Q2HP PRN IV 03/08/24 12:45 03/10/24 15:22 2 MG Acetaminophen/ Hydrocodone Bitart 1 tab Q4HPRN PRN PO 03/08/24 12:45 Acetaminophen/ Hydrocodone Bitart 1 tab Q4HP PRN PO 03/08/24 12:45 Potassium Chloride/Dextrose/ Sod Cl 1,000 ml @ 75 mls/hr [id number] IV 03/08/24 12:45 03/11/24 09:57 75 MLS/HR Midazolam HCl 50 ml @ 1 mls/hr Q24H IV 03/08/24 17:15 03/09/24 07:44 2 MLS/HR Fentanyl Citrate 250 ml @ 2.5 mls/hr Q24H IV 03/08/24 17:15 03/09/24 13:42 12.5 MLS/HR Vancomycin HCl 0 ml @ 0 mls/hr UD IV 03/09/24 10:30 Piperacillin Sod/ Tazobactam Sod 100 ml @ 25 mls/hr Q8HR IV 03/09/24 12:00 03/11/24 05:40 25 MLS/HR Vancomycin HCl 200 ml @ 200 mls/hr Q18H IV 03/10/24 05:00 03/10/24 22:49 200 MLS/HR Diagnostic Test (Pha) 1 strip Q6HR 03/10/24 00:00 03/11/24 05:40 1 STRIP Insulin Human Regular FOLLOW SLIDING SCALE Q6HR SC 03/10/24 00:00 03/10/24 18:00 2 UNITS Dextrose 50 ml UD IV 03/10/24 00:00 Acetaminophen 1,000 mg Q8HPRN PRN IV 03/09/24 15:30 03/09/24 16:06 1,000 MG Dexmedetomidine HCl 400 mcg/ Dextrose 100 ml @ 3.835 mls/ hr Q24H IV 03/09/24 18:30 03/11/24 05:39 3.835 MLS/HR Norepinephrine Bitartrate 250 ml @ 3.75 mls/hr Q24H IV 03/09/24 21:45 03/09/24 21:44 1.875 MLS/HR objective Gen.: Patient lying in bed in medical ICU. Intubated on mechanical ventilator. Head: Normocephalic, atraumatic. Eyes: PERRLA. Ears: Normal external anatomy. Throat: Endotracheal tube and orogastric tube in place. Neck: Supple, trachea midline. Chest: Transmitted breath sounds bilaterally. Decreased air entry bilaterally. No wheezing. Bibasilar crackles. Cardiovascular: Positive S1, positive S2. Regular rate and rhythm. Abdomen: Positive bowel sounds in all 4 quadrants. Soft, nontender, nondistended. : Serrano in place. Normal external genitalia. Rectal: Deferred. Skin: Warm, dry. Intact. Extremities: 2+ radial pulses bilaterally. No lower extremity edema. Neuro: Off sedation, awake and alert, follows commands. laboratory and microbiology Laboratory Tests 03/11/24 04:35 Test 03/11/24 04:35 Range/Units Serum Glucose 109 H 74-106 mg/dL Assessment/Plan Impression: Acute hypoxic respiratory failure On mechanical ventilator Pulmonary edema Pleural effusions Atelectasis Obesity Events: CPAP trial with PS 8, PEEP of 5. Off fentanyl at 5 am. Precedex drip. Awake, follows commands. On pressors for hemodynamic support Levophed 2 mcg/min Titrate to keep mean arterial pressure greater than 65 mmHg. Check CBC w/ diff, BMP, mag, phos in the AM. Patient is febrile (temp 99.3) IV Tylenol. Continue antibiotics WBC trending up. Diurese w/ Lasix Monitor renal function Place on full vent support overnight. Rest of plan as noted below Plan: s/p intubation on mechanical ventilator. On AC mode with RR 14, VT 500, PEEP 5, FiO2 40% CXR notable for pulmonary edema. CT chest demonstrates bilateral pleural effusions, atelectasis ABG reviewed. High IPAP pressures could be required to achieve ventilation Limited chest U/S notable for B-lines suggestive of pulmonary interstitial edema. Lasix 20 mg IVP x1 Already received Lasix 40 mg Titrate FIO2 to keep O2 saturation above 90%. VAP bundle. Daily ABG and CXR while intubated Sedated for ventilatory synchrony Antibiotics. F/u cultures. Pressors as necessary to maintain a mean arterial blood pressure greater than 65 mmHg. Diurese to maintain euvolemia. Monitor renal function Monitor electrolytes. Supplement as necessary. Monitor ins and outs. Diet and lifestyle modifications for weight reduction Obesity - complicates all care. GI prophylaxis. DVT prophylaxis. Prognosis: Poor given patient's multiple co-morbidities. Condition: Critical Rest of plan per hospitalist and other consultants. A total of 35 minutes of critical care time was spent reviewing the patient record, examining the patient, making a diagnostic and therapeutic plan, discussing this plan with the medical personnel, following up on diagnostic studies and following the patient for clinical stability excluding any and all procedures. At least 50% of this time was spent in direct, [id number] contact. Thank you Dr. Joselito Marroquin MD, for allowing me to participate in this patient's care. Further recommendations will depend on the patient's clinical course. Please do not hesitate to contact me if you have any questions or concerns. This medical document was created using an electronic medical record system with Dragon computerized dictation system. Although these documentations are being carefully reviewed, there may still be some phonetic and typographical changes. The errors are purely typographical, due to imperfection on the software program, and do not reflect any compromise in the patient's medical care. Dietary Evaluation Review Comments: Advance to diet as tolerated after the GI procedures. Monitor PO intake to meet 75% of her needs Expected Outcomes/Goals: maintain weight. Plan discussed with: Other (AARTI Chávez) Critical Care Time(min): 35 VICK ARANA MD Mar 11, 2024 10:14
[2024-03-11] MEDS: NOREPINEPHRINE 8 MG/250ML KIT 250 ML IV SCH (11:30)
[2024-03-11 12:01] LABS: Base Excess -1.5 mmol/L (-2.0-3.0)
--- NOTE | 2024-03-11 12:07 | DVHPN2 ---
Progress Note Date Seen: Mar 11, 2024 Has the PT tested + for MRSA If YES, has PT been informed?: Yes Medical Necessity Reason Pt with a Central, PICC or Fol: Yes The following are medically ne: Serrano Catheter Reason for serrano catheter: Strict I&O Subjective Review of Systems Pt remains in SDU/ICU overflow, intubated with MV support. Shes alert and awake. Nods no to pain. Objective vital signs Vital Sign Date Time Temp Pulse Resp B/P (MAP) Pulse Ox O2 Delivery O2 Flow Rate FiO2 03/11/24 11:19 92 13 124/53 (76) 100 30 03/11/24 06:00 97.7 97.7 03/11/24 06:00 Mechanical Ventilator+ Total Intake and Output 03/10/24 03/10/24 03/11/24 15:00 23:00 07:00 Intake Total 916.930 ml 946.9815 ml 664.970 ml Output Total 425 ml 300 ml Balance 916.930 ml 521.9815 ml 364.970 ml medications Current Medications Medications Dose Ordered Sig/Wm Route Start Time Stop Time Status Last Admin Dose Admin Ondansetron HCl 4 mg Q4HP PRN IV 03/03/24 00:15 03/03/24 18:33 4 MG Nitroglycerin 0.4 mg Q5MINP PRN SL 03/03/24 00:15 Morphine Sulfate 2 mg Q30M PRN IV 03/03/24 00:15 Pantoprazole Sodium 40 mg DAILY IV 03/03/24 10:00 03/11/24 09:56 40 MG Morphine Sulfate 2 mg Q2HP PRN IV 03/08/24 12:45 03/10/24 15:22 2 MG Acetaminophen/ Hydrocodone Bitart 1 tab Q4HPRN PRN PO 03/08/24 12:45 Acetaminophen/ Hydrocodone Bitart 1 tab Q4HP PRN PO 03/08/24 12:45 Potassium Chloride/Dextrose/ Sod Cl 1,000 ml @ 75 mls/hr [id number] IV 03/08/24 12:45 03/11/24 09:57 75 MLS/HR Midazolam HCl 50 ml @ 1 mls/hr Q24H IV 03/08/24 17:15 03/09/24 07:44 2 MLS/HR Fentanyl Citrate 250 ml @ 2.5 mls/hr Q24H IV 03/08/24 17:15 03/09/24 13:42 12.5 MLS/HR Vancomycin HCl 0 ml @ 0 mls/hr UD IV 03/09/24 10:30 Piperacillin Sod/ Tazobactam Sod 100 ml @ 25 mls/hr Q8HR IV 03/09/24 12:00 03/11/24 05:40 25 MLS/HR Vancomycin HCl 200 ml @ 200 mls/hr Q18H IV 03/10/24 05:00 03/10/24 22:49 200 MLS/HR Diagnostic Test (Pha) 1 strip Q6HR 03/10/24 00:00 03/11/24 05:40 1 STRIP Insulin Human Regular FOLLOW SLIDING SCALE Q6HR SC 03/10/24 00:00 03/10/24 18:00 2 UNITS Dextrose 50 ml UD IV 03/10/24 00:00 Acetaminophen 1,000 mg Q8HPRN PRN IV 03/09/24 15:30 03/09/24 16:06 1,000 MG Dexmedetomidine HCl 400 mcg/ Dextrose 100 ml @ 3.835 mls/ hr Q24H IV 03/09/24 18:30 03/11/24 05:39 3.835 MLS/HR Norepinephrine Bitartrate 250 ml @ 3.75 mls/hr Q24H IV 03/11/24 11:30 Examination Afebrile, minimal vasopressor support. Very sensitive to dose adjustment. Neuro Alert and wake. CV: Hemodynamically unstable with minimal vasopressor support. Abdomen soft, Nd and NT. Incision C/D/I. laboratory and microbiology Laboratory Tests 03/11/24 04:35 Test 03/11/24 04:35 Range/Units Serum Glucose 109 H 74-106 mg/dL Microbiology Date/Time Source Procedure Growth Status 03/09/24 16:32 Blood Blood Culture - Preliminary NO GROWTH AFTER 24 HOURS OF INCUBATION. Resulted 03/08/24 20:36 Trachea Gram Stain - Final Complete 03/08/24 20:36 Trachea Respiratory Culture - Final Complete Problem List/Assessment/Plan Problems(with codes): (1) Ascending colon malignant neoplasm Problem List/Assessment/Plan Neuro: Continue with minimal sedation. Cardio: Continue IVF. DVT prophylaxis. Continuous BP and CVP monitoring. Wean vasopressor suport as tolerated. Pulmonary: Continue vent support.Attempt extubation if meets criteria. Appreciater Dr. Meza assistance. GI: GI prophylaxis. OGT to continuous suction at 80 mm Hg. If extubates, will initiate CLD. If not, initiate TF. Hold clinimix. . Strict Is and Os. Serrano to gravity. Replace electrolytes as needed. Heme/ID. Agree with Zosyn. Improving WBC. Cs negative to date. Endocrine. Tight glycemic control. Musculoskeletal: Passive ROM. Skin. Pressure ulcer precautions and skin care. Plan discussed with: Patient, Other (Dr. Mera and RN) My Orders My Orders Orders - SUBHASH DELGADO MD Procedure Category Date Status Time Potassium Phosphate PHA 03/11/24 In Process 11:30 Norepinephrine 8 PHA 03/11/24 In Process Mg/250ml Kit 11:30 Dietary Evaluation Review Comments: Advance to diet as tolerated after the GI procedures. Monitor PO intake to meet 75% of her needs Expected Outcomes/Goals: maintain weight. SUBHASH DELGADO MD Mar 11, 2024 12:07
[2024-03-11] MEDS: POTASSIUM PHOSPHATE 22 MEQ in SODIUM CHL 0.9% 100 ML IV ONE (12:54)
--- NOTE | 2024-03-11 14:25 | DVHPN2 ---
Progress Note - Dictate Date Seen: Mar 11, 2024 Has the PT tested + for MRSA If YES, has PT been informed?: Yes Medical Necessity Reason Pt with a Central, PICC or Fol: Yes The following are medically ne: Serrano Catheter Reason for serrano catheter: Strict I&O Subjective Patient intubated. Awake and following commands during CPAP trial. Denies any pain. vital signs Vital Sign Date Time Temp Pulse Resp B/P (MAP) Pulse Ox O2 Delivery O2 Flow Rate FiO2 03/11/24 13:20 79 23 137/51 (79) 99 30 03/11/24 06:00 97.7 97.7 03/11/24 06:00 Mechanical Ventilator+ Total Intake and Output 03/10/24 03/10/24 03/11/24 15:00 23:00 07:00 Intake Total 916.930 ml 946.9815 ml 664.970 ml Output Total 425 ml 300 ml Balance 916.930 ml 521.9815 ml 364.970 ml medications Current Medications Medications Dose Ordered Sig/Wm Route Start Time Stop Time Status Last Admin Dose Admin Ondansetron HCl 4 mg Q4HP PRN IV 03/03/24 00:15 03/03/24 18:33 4 MG Nitroglycerin 0.4 mg Q5MINP PRN SL 03/03/24 00:15 Morphine Sulfate 2 mg Q30M PRN IV 03/03/24 00:15 Pantoprazole Sodium 40 mg DAILY IV 03/03/24 10:00 03/11/24 09:56 40 MG Morphine Sulfate 2 mg Q2HP PRN IV 03/08/24 12:45 03/10/24 15:22 2 MG Acetaminophen/ Hydrocodone Bitart 1 tab Q4HPRN PRN PO 03/08/24 12:45 Acetaminophen/ Hydrocodone Bitart 1 tab Q4HP PRN PO 03/08/24 12:45 Potassium Chloride/Dextrose/ Sod Cl 1,000 ml @ 75 mls/hr [id number] IV 03/08/24 12:45 03/11/24 09:57 75 MLS/HR Midazolam HCl 50 ml @ 1 mls/hr Q24H IV 03/08/24 17:15 03/09/24 07:44 2 MLS/HR Fentanyl Citrate 250 ml @ 2.5 mls/hr Q24H IV 03/08/24 17:15 03/09/24 13:42 12.5 MLS/HR Vancomycin HCl 0 ml @ 0 mls/hr UD IV 03/09/24 10:30 Piperacillin Sod/ Tazobactam Sod 100 ml @ 25 mls/hr Q8HR IV 03/09/24 12:00 03/11/24 05:40 25 MLS/HR Vancomycin HCl 200 ml @ 200 mls/hr Q18H IV 03/10/24 05:00 03/10/24 22:49 200 MLS/HR Diagnostic Test (Pha) 1 strip Q6HR 03/10/24 00:00 03/11/24 12:00 1 STRIP Insulin Human Regular FOLLOW SLIDING SCALE Q6HR SC 03/10/24 00:00 03/10/24 18:00 2 UNITS Dextrose 50 ml UD IV 03/10/24 00:00 Acetaminophen 1,000 mg Q8HPRN PRN IV 03/09/24 15:30 03/09/24 16:06 1,000 MG Dexmedetomidine HCl 400 mcg/ Dextrose 100 ml @ 3.835 mls/ hr Q24H IV 03/09/24 18:30 03/11/24 05:39 3.835 MLS/HR Norepinephrine Bitartrate 250 ml @ 3.75 mls/hr Q24H IV 03/11/24 11:30 03/11/24 11:30 1.406 MLS/HR objective General: Intubated Lungs: CTA, no crackles Cardiovascular: RRR, no murmurs, no LE Edema Abdomen: Surgical incision without signs of erythema or fluctuance Neuro: Alert laboratory and microbiology Laboratory Tests 03/11/24 04:35 Test 03/11/24 04:35 Range/Units Serum Glucose 109 H 74-106 mg/dL Problem List 1) Colonic mass as noted on colonoscopy s/p hemicolectomy 03/08 2) Anemia 2/2 GI bleed s/p 4 units PRBCs 3) HTN 4) HLD 5) H/O DVT 6) Shock-Resolved 7) Acute Respiratory Failure 8) ANA MARIA Assessment/Plan -General surgery, Dr. Chakraborty consulted. Patient s/p hemicolectomy 03/08. -Hematology-oncology consulted for mass. Pathology report pending. -Blood cultures show NGTD. DC vancomycin. Continue Zosyn. WBC improving. - Daily CXR and ABG. Pulmonary following. Requiring high pressure support during weaning trial today. Will continue daily SAT and SBT. -ANA MARIA resolving. -Hold anti-hypertensives given hypotension. -Holding anticoagulation at this time given recent surgery. -Protonix 40mg IV qdaily for GI prophylaxis. SCDs for DVT prophylaxis. Tube feedings to be initiated at discretion of general surgery given recent hemicolectomy. Full Code. Dietary Evaluation Review Comments: Advance to diet as tolerated after the GI procedures. Monitor PO intake to meet 75% of her needs Expected Outcomes/Goals: maintain weight. Plan discussed with: Patient, Spouse MARVEL BA Mar 11, 2024 14:25
--- NOTE | 2024-03-11 15:01 | DVHPN2 ---
Progress Note Date Seen: Mar 11, 2024 Resident Creating Document: DESTINY TENA RESIDENT Has the PT tested + for MRSA If YES, has PT been informed?: Yes Medical Necessity Reason Pt with a Central, PICC or Fol: Yes The following are medically ne: Serrano Catheter Reason for serrano catheter: Strict I&O Medical Necessity Reason Any complaints today pubic only undergoing CPAP trial. Patient was awake and able to engage in conversation by nodding her head up and down left or right in agreement in conversations Subjective Review of Systems Constitutional: Denies fever, chills, feeling of malaise HEENT: Denies headache, ear pain,no ear discharges Cardiovascular: Denies chest pain, palpitation, orthopnea, PND, pedal edema Respiratory: Undergoing CPAP trial, no hemoptysis noted. GI: Denies abdominal pain, no diarrhea : Deferred Psych: Denies depression, yoandy, suicidal ideation Objective vital signs Vital Sign Date Time Temp Pulse Resp B/P (MAP) Pulse Ox O2 Delivery O2 Flow Rate FiO2 03/11/24 13:20 79 23 137/51 (79) 99 30 03/11/24 06:00 97.7 97.7 03/11/24 06:00 Mechanical Ventilator+ Total Intake and Output 03/10/24 03/10/24 03/11/24 15:00 23:00 07:00 Intake Total 916.930 ml 946.9815 ml 664.970 ml Output Total 425 ml 300 ml Balance 916.930 ml 521.9815 ml 364.970 ml medications Current Medications Medications Dose Ordered Sig/Wm Route Start Time Stop Time Status Last Admin Dose Admin Ondansetron HCl 4 mg Q4HP PRN IV 03/03/24 00:15 03/03/24 18:33 4 MG Nitroglycerin 0.4 mg Q5MINP PRN SL 03/03/24 00:15 Morphine Sulfate 2 mg Q30M PRN IV 03/03/24 00:15 Pantoprazole Sodium 40 mg DAILY IV 03/03/24 10:00 03/11/24 09:56 40 MG Morphine Sulfate 2 mg Q2HP PRN IV 03/08/24 12:45 03/10/24 15:22 2 MG Acetaminophen/ Hydrocodone Bitart 1 tab Q4HPRN PRN PO 03/08/24 12:45 Acetaminophen/ Hydrocodone Bitart 1 tab Q4HP PRN PO 03/08/24 12:45 Potassium Chloride/Dextrose/ Sod Cl 1,000 ml @ 75 mls/hr [id number] IV 03/08/24 12:45 03/11/24 09:57 75 MLS/HR Midazolam HCl 50 ml @ 1 mls/hr Q24H IV 03/08/24 17:15 03/09/24 07:44 2 MLS/HR Fentanyl Citrate 250 ml @ 2.5 mls/hr Q24H IV 03/08/24 17:15 03/09/24 13:42 12.5 MLS/HR Vancomycin HCl 0 ml @ 0 mls/hr UD IV 03/09/24 10:30 Piperacillin Sod/ Tazobactam Sod 100 ml @ 25 mls/hr Q8HR IV 03/09/24 12:00 03/11/24 05:40 25 MLS/HR Vancomycin HCl 200 ml @ 200 mls/hr Q18H IV 03/10/24 05:00 03/10/24 22:49 200 MLS/HR Diagnostic Test (Pha) 1 strip Q6HR 03/10/24 00:00 03/11/24 12:00 1 STRIP Insulin Human Regular FOLLOW SLIDING SCALE Q6HR SC 03/10/24 00:00 03/10/24 18:00 2 UNITS Dextrose 50 ml UD IV 03/10/24 00:00 Acetaminophen 1,000 mg Q8HPRN PRN IV 03/09/24 15:30 03/09/24 16:06 1,000 MG Dexmedetomidine HCl 400 mcg/ Dextrose 100 ml @ 3.835 mls/ hr Q24H IV 03/09/24 18:30 03/11/24 05:39 3.835 MLS/HR Norepinephrine Bitartrate 250 ml @ 3.75 mls/hr Q24H IV 03/11/24 11:30 03/11/24 11:30 1.406 MLS/HR Examination General: Intubated, awake. CPAP trial ongoing Lungs: CTAB, no crackles Cardiovascular: regular rate abd rhythm, no murmur Abdomen: Surgical incision without signs of erythema or fluctuance. warren intact, hypoactive BS. Neuro: Alert Extremities: no LE Edema laboratory and microbiology Laboratory Tests 03/11/24 04:35 Test 03/11/24 04:35 Range/Units Serum Glucose 109 H 74-106 mg/dL Microbiology Date/Time Source Procedure Growth Status 03/09/24 16:32 Blood Blood Culture - Preliminary NO GROWTH AFTER 24 HOURS OF INCUBATION. Resulted 03/08/24 20:36 Trachea Gram Stain - Final Complete 03/08/24 20:36 Trachea Respiratory Culture - Final Complete Problem List/Assessment/Plan Problem List/Assessment/Plan 1) Right colon cancer s/p hemicolectomy 03/08. 2) Anemia 2/2 GI bleed s/p 4 units PRBCs 3) HTN 4) HLD 5) H/O DVT 7) Acute Respiratory Failure --> cpap trial 8) leukocytosis--> improving Assessment/Plan 1. Surgery following, pathology report pending. Gradually improving 2. Not on nutrition yet; Concern about her nutrition. I recommend nutritional support soon 3. Protonix 40mg IV daily for GI prophylaxis. 4. On mechanical ventilation management per primary team 5.Hold anti-hypertensives given hypotension. 6.Holding anticoagulation at this time given recent surgery. 7 SCDs for DVT prophylaxis. Goal of care discussed with for more than 18 minute: Full code Case and plan discussed with Dr. Villanueva Plan discussed with: Patient, Spouse Dietary Evaluation Review Comments: Advance to diet as tolerated after the GI procedures. Monitor PO intake to meet 75% of her needs Expected Outcomes/Goals: maintain weight. DESTINY TENA RESIDENT Mar 11, 2024 15:01
--- NOTE | 2024-03-11 15:54 | DVHSR ---
APPROVED REPORT EXAM: Two-dimensional and M-mode echocardiogram with Doppler and color Doppler. Blood Pressure: 137/53 mmHg INDICATION Pre-Op RISK FACTORS Height: 5'3", Weight: 167 DIMENSIONS LVDd4.8 (3.8-5.7cm)LA (2D)4.1 (1.9-4.0cm)Aortic Root3.2 (2.0-3.7cm) LVDs3.7 (2.5-4.0cm)LA (MM) (1.9-4.0cm)Aortic Cusp Exc1.2 (1.5-2.0cm) EF (%) 45.0 (55-70%)Rt. Atrium3.4 (1.9-4.0cm)Asc. Aorta cm IVSd1.0 (0.7-1.1cm)RV (D) (1.8-2.4cm) PWd1.1 (0.7-1.1cm) Mitral Valve MitralMitral Stenosis E wave1.16m/sMV Mean GR.3mmHg A wave1.18m/sMV Peak GR.6mmHg E/A ratio1.02D MVAcm2 DECEL [id number] 1/2 [id number] IVRTmsDop MVA3.45cm2 Aortic Valve Aortic ValveAortic Stenosis V10.77m/Laura Mean GR.8mmHg V22.02m/Laura Peak GR.16mmHg LVOT Diameter2.0 (1.8-2.4cm)Doppler AVA1.20cm2 2D AVA1.43cm2 Pulmonic Valve V20.99m/s Tricuspid Valve TR Velocity3.68m/s [id number] Other Information Technically limited study due to body habitus. Conclusion LV EJECTION FRACTION IS 40% AND IS REDUCED GLOBAL LV HYPOKINESIS MILD LVH AND MILD LV DIATOLIC DYSFUNCTION SYSTOLIC AND DIASTOLIC LV DIASTOLIC DYSFUNCTION SLIGHTLY DILATED LEFT ATRIUM VERY HEAVILY CALCIFIED POSTERIOR MITRAL LEAFLETS AND ANNULUS MODERATELY SEVERE PULMONARY HYPERENSION RVSP IS 57 MM OF HG AND IS VERY HIGH MODERATE DEGRE MR AORTIC SCLEROSIS NO EFFUSION
[2024-03-11] MEDS: VANCOMYCIN 1GM/200ML PREMIX 200 ML IV SCH (17:55)
--- NOTE | 2024-03-11 21:21 | DVHINCON2 ---
DATE OF CONSULTATION: 03/11/2024 PULMONARY FOLLOWUP HISTORY OF PRESENT ILLNESS: The patient was seen in the morning. I am covering for Dr. Meza. History was reviewed. Labs and x-rays were reviewed. The patient is awake. She is on CPAP with a pressure support of 14 and peep of 5 at 30%. She seems to be tolerating. She denies any respiratory distress or shortness of breath. Her is at bedside. The patient denies any orthopnea or PND. Currently, n.p.o. Urine output has been stable. She has not been running any fevers. Medications were reviewed. PHYSICAL EXAMINATION: VITAL SIGNS: Reveals afebrile, heart rate 92, respiratory rate is 16, blood pressure 125/50, saturations 100% on 30% FIO2. HEENT: Unremarkable. Tongue moist. CHEST: Reveals bibasilar rales, diminished air entry on both sides. Prolonged exhalation. ABDOMEN: Distended. No organomegaly was noted. EXTREMITIES: 1+ pedal edema. NEUROLOGIC: Awake and oriented, moving extremities. LABORATORY WORK: Chest x-ray shows multifocal airspace disease with small left pleural effusion. Other lab work were noted. WBC 12, have decreased from 18 yesterday, hemoglobin 9, hematocrit 29, platelet count is 166, 89% neutrophils. Blood gases, pH 7.45, pCO2 32, pO2 96, bicarbonate 21. Saturations were 97 on CPAP with a pressure support of 14, peep of 5 and 30% FIO2. Sodium is 134, glucose 109, phosphorus is 2.3, calcium 8. LFTs within normal limits. Total protein 4.8 with an albumin of 3. Cultures has so far shown no growth. Last sputum cultures have shown normal oropharyngeal tanvi. IMPRESSION: Acute respiratory failure, pleural effusion, possible congestive heart failure, bilateral infiltrates consistent with pneumonia. History of abdominal surgery. The patient has failed weaning in the past. The patient is now being tried on a slow CPAP pressure support wean, so far tolerating, the patient appears to be comfortable. PLAN: Would be to continue current antibiotics. Continue Levophed as needed to keep mean arterial pressure greater than 65. Continue antibiotics. We will decrease pressure support by 2 cm every few hours as tolerated until she reaches a pressure support of 8 then if she tolerates and weaning parameters were adequate, we can try to extubate the patient. Continue morphine for pain control. Continue Protonix for GI prophylaxis, SCDs for DVT prophylaxis. Prognosis is guarded. At the current time, the patient and her updated. Discussed with primary care physician as well as the patient's bedside RN. Overall, critical time was 33 minutes. MD ADARSH Bui/LUIS TID: [id number] RECEIPT: [id number] cc: Ibrahima Major
--- NOTE | 2024-03-11 23:50 | DVHPN2 ---
Progress Note - Dictate Date Seen: Mar 11, 2024 Has the PT tested + for MRSA If YES, has PT been informed?: Yes Medical Necessity Reason Pt with a Central, PICC or Fol: Yes The following are medically ne: Serrano Catheter Reason for serrano catheter: Strict I&O Subjective Patient was seen and evaluated in follow up in the ICU. Patient is intubated on ventilator. 30% FiO2. Patient is responsive to verbal stimuli. Patient is receiving vasopressors for hemodynamic support. WBC 12.7, HGB 9.5, HCT 29.7, NA 134, CA 8. Prelim blood cultures show no growth. vital signs Vital Sign Date Time Temp Pulse Resp B/P (MAP) Pulse Ox O2 Delivery O2 Flow Rate FiO2 03/11/24 11:19 92 13 124/53 (76) 100 30 03/11/24 06:00 97.7 97.7 03/11/24 06:00 Mechanical Ventilator+ Total Intake and Output 03/10/24 03/10/24 03/11/24 15:00 23:00 07:00 Intake Total 916.930 ml 946.9815 ml 664.970 ml Output Total 425 ml 300 ml Balance 916.930 ml 521.9815 ml 364.970 ml medications Current Medications Medications Dose Ordered Sig/Wm Route Start Time Stop Time Status Last Admin Dose Admin Ondansetron HCl 4 mg Q4HP PRN IV 03/03/24 00:15 03/03/24 18:33 4 MG Nitroglycerin 0.4 mg Q5MINP PRN SL 03/03/24 00:15 Morphine Sulfate 2 mg Q30M PRN IV 03/03/24 00:15 Pantoprazole Sodium 40 mg DAILY IV 03/03/24 10:00 03/11/24 09:56 40 MG Morphine Sulfate 2 mg Q2HP PRN IV 03/08/24 12:45 03/10/24 15:22 2 MG Acetaminophen/ Hydrocodone Bitart 1 tab Q4HPRN PRN PO 03/08/24 12:45 Acetaminophen/ Hydrocodone Bitart 1 tab Q4HP PRN PO 03/08/24 12:45 Potassium Chloride/Dextrose/ Sod Cl 1,000 ml @ 75 mls/hr [id number] IV 03/08/24 12:45 03/11/24 09:57 75 MLS/HR Midazolam HCl 50 ml @ 1 mls/hr Q24H IV 03/08/24 17:15 03/09/24 07:44 2 MLS/HR Fentanyl Citrate 250 ml @ 2.5 mls/hr Q24H IV 03/08/24 17:15 03/09/24 13:42 12.5 MLS/HR Vancomycin HCl 0 ml @ 0 mls/hr UD IV 03/09/24 10:30 Piperacillin Sod/ Tazobactam Sod 100 ml @ 25 mls/hr Q8HR IV 03/09/24 12:00 03/11/24 05:40 25 MLS/HR Vancomycin HCl 200 ml @ 200 mls/hr Q18H IV 03/10/24 05:00 03/10/24 22:49 200 MLS/HR Diagnostic Test (Pha) 1 strip Q6HR 03/10/24 00:00 03/11/24 05:40 1 STRIP Insulin Human Regular FOLLOW SLIDING SCALE Q6HR SC 03/10/24 00:00 03/10/24 18:00 2 UNITS Dextrose 50 ml UD IV 03/10/24 00:00 Acetaminophen 1,000 mg Q8HPRN PRN IV 03/09/24 15:30 03/09/24 16:06 1,000 MG Dexmedetomidine HCl 400 mcg/ Dextrose 100 ml @ 3.835 mls/ hr Q24H IV 03/09/24 18:30 03/11/24 05:39 3.835 MLS/HR Norepinephrine Bitartrate 250 ml @ 3.75 mls/hr Q24H IV 03/11/24 11:30 objective GENERAL: Intubated on ventilator. LUNGS: Decreased breath sounds. CARDIOVASCULAR: Heart sounds are good. ABDOMEN: Soft. laboratory and microbiology Laboratory Tests 03/11/24 04:35 Test 03/11/24 04:35 Range/Units Serum Glucose 109 H 74-106 mg/dL Problem List Colonic mass found on colonoscopy. GI Bleed. Anemia. HTN. HLD. H/O DVT. Assessment/Plan Continued all current supportive medical care. Morphine and Darby for pain management. GI prophylactics. Vasopressors for hemodynamic support. IV antibiotics as ordered. Additional plan as per the hospital course. Critical care time of 45 minutes provided to include time spent evaluation of patient at bedside, when appropriate patient/family education for diagnosis, treatment plan, review of pertinent medical information and discussion of care with specialty providers and PCP. Mechanical ventilator parameters, treatment and adjustments have personally been reviewed by me and treatment plan by manager quality systems has also been reviewed. Dietary Evaluation Review Comments: Advance to diet as tolerated after the GI procedures. Monitor PO intake to meet 75% of her needs Expected Outcomes/Goals: maintain weight. Plan discussed with: Other MARIANGEL SHOEMAKER MD Mar 11, 2024 11:30
[2024-03-12] VITALS (99 sets, daily range): BP systolic 87–182; BP diastolic 33–70; PULSE 58–96; RESP 12–36; TEMP 96.9–99.3; O2SAT 97–100
--- NOTE | 2024-03-12 05:22 | DVH ---
CHEST RADIOGRAPH Indication:patient on mechanical ventilator Technique: Single frontal view of the chest was obtained COMPARISON: XY CHEST XRAY 1 VIEW on DOS: 03/10/24, XY CHEST XRAY 1 VIEW on DOS: 03/09/24, XY CHEST POR TABLE on DOS: 03/08/24 FINDINGS: Lines and Tubes: Endotracheal tube is low in position at the level of the cayla. Left central venou s catheter and enteric catheter in satisfactory position. Lungs: Congestion. Pleura: Trace left pleural effusion. No pneumothorax. Cardiomediastinal contours: Unremarkable Bones: Unremarkable IMPRESSION: Recommend retraction of endotracheal tube by 1 cm.
[2024-03-12 05:48] LABS: Basophils # (auto) 0 10 ^3/uL (0-0.2); Basophils % (auto) 0.5 % (0.0-2.0); Eosinophils # (auto) 0.1 10 ^3/uL (0-0.8); Lymphocytes # (auto) 0.6 10 ^3/uL (0.4-5.4); Mean Corpuscular Volume 79.7 fL (80.0-100.0); Monocytes # (auto) 0.7 10 ^3/uL (0-1.3); Neutrophils # (auto) 5.8 10 ^3/uL (1.6-8.6)
[2024-03-12 05:50] LABS: Eosinophils % (auto) 1.3 % (0.0-7.0); Hematocrit 28.6 % (36.0-46.0); Mean Corpuscular Hgb Conc. 31.3 g/dL (32.0-36.0); Monocytes % (auto) 9.8 % (0.0-12.0); Neutrophils % (auto) 80.4 % (37.0-80.0); Platelet Count (auto) 186 10^3/uL (140-450); Red Blood Cells 3.59 10^6/uL (4.0-5.20); Red Cell Distribution Width 25.5 % (11.8-14.3); White Blood Cell 7.2 10^3/uL (4.4-10.8)
[2024-03-12 06:12] LABS: Albumin 2.7 g/dL (3.2-4.8); Alkaline Phosphatase 61 U/L (46-116); Anion Gap 6 (5-15); Aspartate Aminotransferase 10 U/L (13-40); BUN/Creatinine Ratio 19.6 (10.0-20.0); Blood Urea Nitrogen 11 mg/dL (9-23); Calcium 8.2 mg/dL (8.7-10.4); Carbon Dioxide 23 mmol/L (20-31); Chloride 107 mmol/L (98-107); Glucose 102 mg/dL (74-106); Magnesium 1.9 mg/dL (1.6-2.6); Potassium 3.7 mmol/L (3.5-5.1); Sodium 136 mmol/L (136-145)
[2024-03-12 06:13] LABS: Bilirubin, Total 0.6 mg/dL (0.2-1.0); Phosphorus 2.4 mg/dL (2.4-5.1); Total Protein 4.6 g/dL (5.7-8.2)
[2024-03-12 06:14] LABS: Alanine Aminotransferase < 9 U/L (7-40)
[2024-03-12 06:52] LABS: Anisocytosis Slight; Platelet Estimate Adequate
--- NOTE | 2024-03-12 09:03 | DVH ---
CHEST RADIOGRAPH Indication:RE-CHECK ETT PLACEMENT S/P ADJUSTMENT Technique: Single frontal view of the chest was obtained Comparison: XY CHEST PORTABLE on DOS: 03/12/24 FINDINGS: Lines and Tubes: The endotracheal tube terminates 2.1 cm above the cayla. Left central venous cathet er terminates in the superior vena cava. The enteric tube courses below the left hemidiaphragm and th e tip extends outside the field of view. Lungs: Pulmonary congestion. Pleura: Left pleural effusion. No pneumothorax. Cardiomediastinal contours: Unremarkable Bones: No acute osseous abnormality. IMPRESSION: 1. Stable position of the support lines and tubes. 2. Pulmonary congestion. 3. Left pleural effusion.
[2024-03-12 10:06] LABS: Base Excess -3.2 mmol/L (-2.0-3.0)
--- NOTE | 2024-03-12 10:12 | DVHPN2 ---
Progress Note Date Seen: Mar 12, 2024 Has the PT tested + for MRSA If YES, has PT been informed?: Yes Medical Necessity Reason Pt with a Central, PICC or Fol: Yes The following are medically ne: Serrano Catheter Reason for serrano catheter: Strict I&O Subjective Review of Systems Pt remiais in SDU overflow ICU. She is being transferred to ICU today. Failed CPAP trial again. Per RN had 2 BM Objective vital signs Vital Sign Date Time Temp Pulse Resp B/P (MAP) Pulse Ox O2 Delivery O2 Flow Rate FiO2 03/12/24 09:00 98.2 66 16 138/50 (79) 99 98.2 144/49 (80) 03/12/24 08:00 Mechanical Ventilator+ 30 30 Total Intake and Output 03/11/24 03/11/24 03/12/24 15:00 23:00 07:00 Intake Total 771.48 ml 668.09 ml 760.24 ml Output Total 400 ml 850 ml Balance 771.48 ml 268.09 ml -89.76 ml medications Current Medications Medications Dose Ordered Sig/Wm Route Start Time Stop Time Status Last Admin Dose Admin Ondansetron HCl 4 mg Q4HP PRN IV 03/03/24 00:15 03/03/24 18:33 4 MG Nitroglycerin 0.4 mg Q5MINP PRN SL 03/03/24 00:15 Pantoprazole Sodium 40 mg DAILY IV 03/03/24 10:00 03/12/24 09:39 40 MG Morphine Sulfate 2 mg Q2HP PRN IV 03/08/24 12:45 03/10/24 15:22 2 MG Acetaminophen/ Hydrocodone Bitart 1 tab Q4HPRN PRN PO 03/08/24 12:45 Acetaminophen/ Hydrocodone Bitart 1 tab Q4HP PRN PO 03/08/24 12:45 Potassium Chloride/Dextrose/ Sod Cl 1,000 ml @ 75 mls/hr [id number] IV 03/08/24 12:45 03/12/24 09:38 75 MLS/HR Midazolam HCl 50 ml @ 1 mls/hr Q24H IV 03/08/24 17:15 03/09/24 07:44 2 MLS/HR Fentanyl Citrate 250 ml @ 2.5 mls/hr Q24H IV 03/08/24 17:15 03/09/24 13:42 12.5 MLS/HR Vancomycin HCl 0 ml @ 0 mls/hr UD IV 03/09/24 10:30 Piperacillin Sod/ Tazobactam Sod 100 ml @ 25 mls/hr Q8HR IV 03/09/24 12:00 03/12/24 05:26 25 MLS/HR Diagnostic Test (Pha) 1 strip Q6HR 03/10/24 00:00 03/12/24 06:07 1 STRIP Insulin Human Regular FOLLOW SLIDING SCALE Q6HR SC 03/10/24 00:00 03/10/24 18:00 2 UNITS Dextrose 50 ml UD IV 03/10/24 00:00 Acetaminophen 1,000 mg Q8HPRN PRN IV 03/09/24 15:30 03/09/24 16:06 1,000 MG Dexmedetomidine HCl 400 mcg/ Dextrose 100 ml @ 3.835 mls/ hr Q24H IV 03/09/24 18:30 03/12/24 06:18 3.835 MLS/HR Norepinephrine Bitartrate 250 ml @ 3.75 mls/hr Q24H IV 03/11/24 11:30 03/11/24 11:30 1.406 MLS/HR Vancomycin HCl 200 ml @ 200 mls/hr Q16H IV 03/11/24 17:00 03/12/24 09:28 200 MLS/HR Examination Neuro: Alert and awake. CV: Stable. Off vasopressors. Pulmonary. CPAP again. Abdomen: Soft, ND and NT. Incision C/D/I. laboratory and microbiology Laboratory Tests 03/12/24 05:03 Test 03/12/24 05:03 Range/Units Serum Glucose 102 74-106 mg/dL Microbiology Date/Time Source Procedure Growth Status 03/09/24 16:32 Blood Blood Culture - Preliminary NO GROWTH AFTER 48 HOURS OF INCUBATION. Resulted 03/08/24 20:36 Trachea Gram Stain - Final Complete 03/08/24 20:36 Trachea Respiratory Culture - Final Complete Labs and/or images reviewed: Labs reviewed by me Problem List/Assessment/Plan Problems(with codes): (1) Colon cancer Problem List/Assessment/Plan Neuro: Continue with minimal sedation. Cardio: Continue IVF. DVT prophylaxis. Continuous BP and CVP monitoring. Wean vasopressor suport as tolerated. Pulmonary: Continue vent support.Attempt extubation if meets criteria. Appreciater Dr. Meza assistance. GI: GI prophylaxis. May start TF. Hold for extubation. CLD after extubation. . Strict Is and Os. Serrano to gravity. Replace electrolytes as needed. Heme/ID. Agree with Zosyn. Resolved elevated WBC . Cxs negative to date. Endocrine. Tight glycemic control. Musculoskeletal: Passive ROM. Skin. Pressure ulcer precautions and skin care. Plan discussed with: Spouse, Other (RN) My Orders My Orders Orders - SUBHASH DELGADO MD Procedure Category Date Status Time Norepinephrine 8 PHA 03/11/24 In Process Mg/250ml Kit 11:30 Dietary Evaluation Review Comments: Advance to diet as tolerated after the GI procedures. Monitor PO intake to meet 75% of her needs Expected Outcomes/Goals: maintain weight. SUBHASH DELGADO MD Mar 12, 2024 10:12
[2024-03-12] MEDS ORDERED: Glucerna 1.2 Cal 1Liter BOTTLE GT SCH (10:15)
--- NOTE | 2024-03-12 10:56 | DVHPN2 ---
Progress Note - Dictate Date Seen: Mar 12, 2024 Has the PT tested + for MRSA If YES, has PT been informed?: Yes Medical Necessity Reason Pt with a Central, PICC or Fol: Yes The following are medically ne: Serrano Catheter Reason for serrano catheter: Strict I&O Subjective Patient intubated. Awake and following commands during CPAP trial. Denies any pain. vital signs Vital Sign Date Time Temp Pulse Resp B/P (MAP) Pulse Ox O2 Delivery O2 Flow Rate FiO2 03/12/24 10:30 98.4 69 26 126/44 (71) 99 98.4 134/45 (74) 03/12/24 10:00 Mechanical Ventilator+ 30 30 Total Intake and Output 03/11/24 03/11/24 03/12/24 15:00 23:00 07:00 Intake Total 771.48 ml 668.09 ml 760.24 ml Output Total 400 ml 850 ml Balance 771.48 ml 268.09 ml -89.76 ml medications Current Medications Medications Dose Ordered Sig/Wm Route Start Time Stop Time Status Last Admin Dose Admin Ondansetron HCl 4 mg Q4HP PRN IV 03/03/24 00:15 03/03/24 18:33 4 MG Nitroglycerin 0.4 mg Q5MINP PRN SL 03/03/24 00:15 Pantoprazole Sodium 40 mg DAILY IV 03/03/24 10:00 03/12/24 09:39 40 MG Morphine Sulfate 2 mg Q2HP PRN IV 03/08/24 12:45 03/10/24 15:22 2 MG Acetaminophen/ Hydrocodone Bitart 1 tab Q4HPRN PRN PO 03/08/24 12:45 Acetaminophen/ Hydrocodone Bitart 1 tab Q4HP PRN PO 03/08/24 12:45 Potassium Chloride/Dextrose/ Sod Cl 1,000 ml @ 75 mls/hr [id number] IV 03/08/24 12:45 03/12/24 09:38 75 MLS/HR Midazolam HCl 50 ml @ 1 mls/hr Q24H IV 03/08/24 17:15 03/09/24 07:44 2 MLS/HR Fentanyl Citrate 250 ml @ 2.5 mls/hr Q24H IV 03/08/24 17:15 03/09/24 13:42 12.5 MLS/HR Vancomycin HCl 0 ml @ 0 mls/hr UD IV 03/09/24 10:30 Piperacillin Sod/ Tazobactam Sod 100 ml @ 25 mls/hr Q8HR IV 03/09/24 12:00 03/12/24 05:26 25 MLS/HR Diagnostic Test (Pha) 1 strip Q6HR 03/10/24 00:00 03/12/24 06:07 1 STRIP Insulin Human Regular FOLLOW SLIDING SCALE Q6HR SC 03/10/24 00:00 03/10/24 18:00 2 UNITS Dextrose 50 ml UD IV 03/10/24 00:00 Acetaminophen 1,000 mg Q8HPRN PRN IV 03/09/24 15:30 03/09/24 16:06 1,000 MG Dexmedetomidine HCl 400 mcg/ Dextrose 100 ml @ 3.835 mls/ hr Q24H IV 03/09/24 18:30 03/12/24 06:18 3.835 MLS/HR Norepinephrine Bitartrate 250 ml @ 3.75 mls/hr Q24H IV 03/11/24 11:30 03/11/24 11:30 1.406 MLS/HR Vancomycin HCl 200 ml @ 200 mls/hr Q16H IV 03/11/24 17:00 03/12/24 09:28 200 MLS/HR Enteral Nutritional Formula 1,000 ml 50ML/HR GT 03/12/24 10:15 objective General: Intubated Lungs: CTA, no crackles Cardiovascular: RRR, no murmurs, no LE Edema Abdomen: Surgical incision without signs of erythema or fluctuance Neuro: Alert laboratory and microbiology Laboratory Tests 03/12/24 05:03 Test 03/12/24 05:03 Range/Units Serum Glucose 102 74-106 mg/dL Problem List 1) Colonic mass as noted on colonoscopy s/p hemicolectomy 03/08 2) Anemia 2/2 GI bleed s/p 4 units PRBCs 3) HTN 4) HLD 5) H/O DVT 6) Shock-Resolved 7) Acute Respiratory Failure 8) ANA MARIA-resolved Assessment/Plan -General surgery, Dr. Chakraborty consulted. Patient s/p hemicolectomy 03/08. -Hematology-oncology consulted for mass. Pathology report pending. -Blood cultures show NGTD. DC vancomycin. Continue Zosyn. WBC improving. Will plan to discontinue on 02/10. - Daily CXR and ABG. Pulmonary following. Requiring high pressure support during weaning trial today. Will continue daily SAT and SBT. -ANA MARIA resolving. -Hold anti-hypertensives given hypotension. -Holding anticoagulation at this time given recent surgery. -Protonix 40mg IV qdaily for GI prophylaxis. SCDs for DVT prophylaxis. Tube feedings to be initiated at discretion of general surgery given recent hemicolectomy. -Physical therapy eval pending with possible SNF placement. Full Code. Dietary Evaluation Review Comments: Advance to diet as tolerated after the GI procedures. Monitor PO intake to meet 75% of her needs Expected Outcomes/Goals: maintain weight. Plan discussed with: Patient, Spouse MARVEL BA DO Mar 12, 2024 10:56
--- NOTE | 2024-03-12 13:51 | DVHPN2 ---
Progress Note - Dictate Date Seen: Mar 12, 2024 Has the PT tested + for MRSA If YES, has PT been informed?: Yes Medical Necessity Reason Pt with a Central, PICC or Fol: Yes The following are medically ne: Serrano Catheter Reason for serrano catheter: Strict I&O Subjective Patient was seen and evaluated in follow up in the ICU. Patient is intubated on ventilator. 30% FiO2. Patient failed CPAP trial due to tachypnea and increased WOB. HGB 9, HCT 28.6. Chest x-ray shows stable position of the support lines and tubes, pulmonary congestion, left pleural effusion. vital signs Vital Sign Date Time Temp Pulse Resp B/P (MAP) Pulse Ox O2 Delivery O2 Flow Rate FiO2 03/12/24 12:00 24 99 Mechanical Ventilator+ 30 30 03/12/24 11:30 71 132/52 (78) 137/44 (75) 03/12/24 10:30 98.4 98.4 Total Intake and Output 03/11/24 03/11/24 03/12/24 15:00 23:00 07:00 Intake Total 771.48 ml 668.09 ml 760.24 ml Output Total 400 ml 850 ml Balance 771.48 ml 268.09 ml -89.76 ml medications Current Medications Medications Dose Ordered Sig/Wm Route Start Time Stop Time Status Last Admin Dose Admin Ondansetron HCl 4 mg Q4HP PRN IV 03/03/24 00:15 03/03/24 18:33 4 MG Nitroglycerin 0.4 mg Q5MINP PRN SL 03/03/24 00:15 Pantoprazole Sodium 40 mg DAILY IV 03/03/24 10:00 03/12/24 09:39 40 MG Morphine Sulfate 2 mg Q2HP PRN IV 03/08/24 12:45 03/10/24 15:22 2 MG Acetaminophen/ Hydrocodone Bitart 1 tab Q4HPRN PRN PO 03/08/24 12:45 Acetaminophen/ Hydrocodone Bitart 1 tab Q4HP PRN PO 03/08/24 12:45 Potassium Chloride/Dextrose/ Sod Cl 1,000 ml @ 75 mls/hr [id number] IV 03/08/24 12:45 03/12/24 09:38 75 MLS/HR Midazolam HCl 50 ml @ 1 mls/hr Q24H IV 03/08/24 17:15 03/09/24 07:44 2 MLS/HR Fentanyl Citrate 250 ml @ 2.5 mls/hr Q24H IV 03/08/24 17:15 03/09/24 13:42 12.5 MLS/HR Vancomycin HCl 0 ml @ 0 mls/hr UD IV 03/09/24 10:30 Piperacillin Sod/ Tazobactam Sod 100 ml @ 25 mls/hr Q8HR IV 03/09/24 12:00 03/12/24 05:26 25 MLS/HR Diagnostic Test (Pha) 1 strip Q6HR 03/10/24 00:00 03/12/24 12:04 1 STRIP Insulin Human Regular FOLLOW SLIDING SCALE Q6HR SC 03/10/24 00:00 03/10/24 18:00 2 UNITS Dextrose 50 ml UD IV 03/10/24 00:00 Acetaminophen 1,000 mg Q8HPRN PRN IV 03/09/24 15:30 03/09/24 16:06 1,000 MG Dexmedetomidine HCl 400 mcg/ Dextrose 100 ml @ 3.835 mls/ hr Q24H IV 03/09/24 18:30 03/12/24 06:18 3.835 MLS/HR Norepinephrine Bitartrate 250 ml @ 3.75 mls/hr Q24H IV 03/11/24 11:30 03/11/24 11:30 1.406 MLS/HR Vancomycin HCl 200 ml @ 200 mls/hr Q16H IV 03/11/24 17:00 03/12/24 09:28 200 MLS/HR Enteral Nutritional Formula 1,000 ml 50ML/HR GT 03/12/24 10:15 objective GENERAL: Intubated on ventilator. LUNGS: Decreased breath sounds. CARDIOVASCULAR: Heart sounds are good. ABDOMEN: Soft. laboratory and microbiology Laboratory Tests 03/12/24 05:03 Test 03/12/24 05:03 Range/Units Serum Glucose 102 74-106 mg/dL Problem List Colonic mass found on colonoscopy. GI Bleed. Anemia. HTN. HLD. H/O DVT. Assessment/Plan Continued all current supportive medical care. Morphine and [place] for pain management. GI prophylactics. Vasopressors for hemodynamic support. IV antibiotics as ordered. Additional plan as per the hospital course. Critical care time of 45 minutes provided to include time spent evaluation of patient at bedside, when appropriate patient/family education for diagnosis, treatment plan, review of pertinent medical information and discussion of care with specialty providers and PCP. Mechanical ventilator parameters, treatment and adjustments have personally been reviewed by me and treatment plan by steward/stewardess third class has also been reviewed. Dietary Evaluation Review Comments: Advance to diet as tolerated after the GI procedures. Monitor PO intake to meet 75% of her needs Expected Outcomes/Goals: maintain weight. Plan discussed with: Other MARIANGEL SHOEMAKER MD Mar 12, 2024 12:57
--- NOTE | 2024-03-12 19:11 | DVHPN ---
DATE: 03/12/2024 PRIMARY PHYSICIAN: Dr. Major. The patient was seen in the afternoon. The patient was given a CPAP trial with a pressure support of 8. She lasted for an hour, but became tachypneic into 35-36 with tidal volumes dropped into about to 275 range. The patient denied any respiratory distress. The patient's vital signs were maintained except for mild tachycardia. The patient was explained the marginal nature of her trial. We will keep her on the current vent settings. We will revert her to assist control and try CPAP again. The patient is awake and alert. Denies any significant secretions. Denies any shortness of breath. The patient's is at bedside. PHYSICAL EXAMINATION: VITAL SIGNS: Afebrile, heart rate is 71, blood pressure is 100/60, saturations were 98-99% back on assist control NECK: Supple. No JVD. CHEST: Bibasilar rales, no wheezing. Air entry fair. ABDOMEN: Distended. Bowel sounds are sluggish. No tenderness. EXTREMITIES: No edema or clubbing. LABORATORY WORK: WBC 7.2, hematocrit 28, platelet count is 186, 81% neutrophils. Blood gases were reviewed, which showed a pH of 7.46, pCO2 of 28, pO2 of 86, but this was done on pressure support of 12. At that time, her tidal volumes were about 400 range. The other lab work was noted. CMP significant for albumin of 2.7. Other lab work were all noted. Cultures have been unremarkable. Chest x-ray from this morning shows pulmonary venous congestion with small pleural effusion. At this time, we will continue current, decrease IV fluids, keep euvolemic to slightly negative. Continue antibiotics. We will repeat another CPAP trial with a pressure support of 8, 30% and 5 of peep and see if she will be able to tolerate weaning tomorrow. Continue GI prophylaxis. Continue antibiotics, DVT prophylaxis once approved by a surgeon. Continue SCDs. Dr. Meza will resume Pulmonary care, discussed with the patient as well as the patient's and bedside RN and RT. Critical time 37 minutes. MD ADARSH Bui/JOÃO TID: [id number] RECEIPT: [id number] cc: Dr. Major
--- NOTE | 2024-03-12 19:18 | DVHPN2 ---
Progress Note - Dictate Date Seen: Mar 12, 2024 Has the PT tested + for MRSA If YES, has PT been informed?: Yes Medical Necessity Reason Pt with a Central, PICC or Fol: Yes The following are medically ne: Serrano Catheter Reason for serrano catheter: Strict I&O Subjective Patient seen in ICU on 0 seven She is S/P laparoscopic hand assisted right hemicolectomy Final report pending Patient had to be reintubated She had a bowel movement today vital signs Vital Sign Date Time Temp Pulse Resp B/P (MAP) Pulse Ox O2 Delivery O2 Flow Rate FiO2 03/12/24 18:45 72 23 105/43 (63) 98 126/45 (72) 03/12/24 18:00 30 03/12/24 18:00 Mechanical Ventilator+ 03/12/24 16:00 98.5 98.5 Total Intake and Output 03/11/24 03/11/24 03/12/24 15:00 23:00 07:00 Intake Total 771.48 ml 668.09 ml 760.24 ml Output Total 400 ml 850 ml Balance 771.48 ml 268.09 ml -89.76 ml medications Current Medications Medications Dose Ordered Sig/Wm Route Start Time Stop Time Status Last Admin Dose Admin Ondansetron HCl 4 mg Q4HP PRN IV 03/03/24 00:15 03/03/24 18:33 4 MG Nitroglycerin 0.4 mg Q5MINP PRN SL 03/03/24 00:15 Pantoprazole Sodium 40 mg DAILY IV 03/03/24 10:00 03/12/24 09:39 40 MG Morphine Sulfate 2 mg Q2HP PRN IV 03/08/24 12:45 03/10/24 15:22 2 MG Acetaminophen/ Hydrocodone Bitart 1 tab Q4HPRN PRN PO 03/08/24 12:45 Acetaminophen/ Hydrocodone Bitart 1 tab Q4HP PRN PO 03/08/24 12:45 Potassium Chloride/Dextrose/ Sod Cl 1,000 ml @ 75 mls/hr [id number] IV 03/08/24 12:45 03/12/24 09:38 75 MLS/HR Midazolam HCl 50 ml @ 1 mls/hr Q24H IV 03/08/24 17:15 03/09/24 07:44 2 MLS/HR Fentanyl Citrate 250 ml @ 2.5 mls/hr Q24H IV 03/08/24 17:15 03/09/24 13:42 12.5 MLS/HR Vancomycin HCl 0 ml @ 0 mls/hr UD IV 03/09/24 10:30 Piperacillin Sod/ Tazobactam Sod 100 ml @ 25 mls/hr Q8HR IV 03/09/24 12:00 03/12/24 13:39 25 MLS/HR Diagnostic Test (Pha) 1 strip Q6HR 03/10/24 00:00 03/12/24 17:34 1 STRIP Insulin Human Regular FOLLOW SLIDING SCALE Q6HR SC 03/10/24 00:00 03/10/24 18:00 2 UNITS Dextrose 50 ml UD IV 03/10/24 00:00 Acetaminophen 1,000 mg Q8HPRN PRN IV 03/09/24 15:30 03/09/24 16:06 1,000 MG Dexmedetomidine HCl 400 mcg/ Dextrose 100 ml @ 3.835 mls/ hr Q24H IV 03/09/24 18:30 03/12/24 06:18 3.835 MLS/HR Norepinephrine Bitartrate 250 ml @ 3.75 mls/hr Q24H IV 03/11/24 11:30 03/11/24 11:30 1.406 MLS/HR Vancomycin HCl 200 ml @ 200 mls/hr Q16H IV 03/11/24 17:00 03/12/24 09:28 200 MLS/HR Enteral Nutritional Formula 1,000 ml 50ML/HR GT 03/12/24 10:15 objective Well-developed well-nourished lady sedated on face mask HEENT: Pale conjunctiva, otherwise normocephalic atraumatic extraocular movements are intact Heart: Regular rate and rhythm Abdomen: Dressing dry Extremity no clubbing cyanosis or edema laboratory and microbiology Laboratory Tests 03/12/24 05:03 Test 03/12/24 05:03 Range/Units Serum Glucose 102 74-106 mg/dL Problems(with codes): (1) Ascending colon malignant neoplasm (2) Colon cancer (3) Chest pain (4) Symptomatic anemia Prognosis Plan Nutritional support recommended Patient will be started on tube feedings as tolerated Monitor labs Pulmonary consult appreciated Dietary Evaluation Review Comments: Advance to diet as tolerated after the GI procedures. Monitor PO intake to meet 75% of her needs Expected Outcomes/Goals: maintain weight. Plan discussed with: Other (ICU Nurse) HORTENSIA FERRARO MD Mar 12, 2024 19:18
[2024-03-13] VITALS (101 sets, daily range): BP systolic 90–203; BP diastolic 33–110; PULSE 58–113; RESP 14–37; TEMP 98.3–99.7; O2SAT 96–100
[2024-03-13 03:55] LABS: Basophils # (auto) 0.1 10 ^3/uL (0-0.2); Eosinophils # (auto) 0.2 10 ^3/uL (0-0.8); Hematocrit 28.8 % (36.0-46.0); Hemoglobin 8.9 g/dL (12.2-16.2); Monocytes # (auto) 0.7 10 ^3/uL (0-1.3); Neutrophils # (auto) 4.3 10 ^3/uL (1.6-8.6); Nucleated Red Blood Cells % 0.1 %; White Blood Cell 5.7 10^3/uL (4.4-10.8)
[2024-03-13 03:58] LABS: Basophils % (auto) 0.9 % (0.0-2.0); Eosinophils % (auto) 3.1 % (0.0-7.0); Lymphocytes # (auto) 0.5 10 ^3/uL (0.4-5.4); Lymphocytes % (auto) 9.4 % (10.0-50.0); Mean Corpuscular Hemoglobin 24.6 pg (28.0-32.0); Mean Corpuscular Volume 79.5 fL (80.0-100.0); Monocytes % (auto) 11.7 % (0.0-12.0); Neutrophils % (auto) 74.9 % (37.0-80.0); Platelet Count (auto) 213 10^3/uL (140-450); Red Blood Cells 3.62 10^6/uL (4.0-5.20)
[2024-03-13 04:05] LABS: Red Cell Distribution Width 25.4 % (11.8-14.3)
[2024-03-13 04:15] LABS: Alanine Aminotransferase 17 U/L (7-40); Albumin 2.8 g/dL (3.2-4.8); Alkaline Phosphatase 75 U/L (46-116); Anion Gap 5 (5-15); Aspartate Aminotransferase 30 U/L (13-40); BUN/Creatinine Ratio 16.7 (10.0-20.0); Blood Urea Nitrogen 8 mg/dL (9-23); Calcium 8.2 mg/dL (8.7-10.4); Carbon Dioxide 22 mmol/L (20-31); Chloride 108 mmol/L (98-107); Glucose 113 mg/dL (74-106); Potassium 3.4 mmol/L (3.5-5.1); Sodium 135 mmol/L (136-145)
[2024-03-13 04:16] LABS: Bilirubin, Total 0.7 mg/dL (0.2-1.0); Total Protein 4.6 g/dL (5.7-8.2)
--- NOTE | 2024-03-13 04:39 | DVH ---
CHEST RADIOGRAPH Indication:routine Technique: Single frontal view of the chest was obtained Comparison: XY CHEST PORTABLE on DOS: 03/12/24 FINDINGS: Lines and Tubes: The endotracheal tube terminates 2.4 cm above the cayla. Left central venous cathet er terminates in the superior vena cava. The enteric tube courses below the left hemidiaphragm and th e tip extends outside the field of view. Lungs: Pulmonary congestion. Pleura: Left pleural effusion. No pneumothorax. Cardiomediastinal contours: Unremarkable Bones: No acute osseous abnormality. IMPRESSION: 1. Pulmonary congestion. Left pleural effusion.
[2024-03-13] MEDS ORDERED: POTASSIUM CHL 20MEQ/100ML 100 ML IV ONE (04:45)
[2024-03-13] MEDS: DexmedeTOMIDine 4 ML IV ONE (05:15)
[2024-03-13] MEDS: POTASSIUM CHL 20MEQ/100ML 100 ML IV SCH (05:26)
[2024-03-13 06:54] LABS: Anisocytosis Moderate; Hypochromia Slight; Ovalocytes FEW; Platelet Estimate Adequate
[2024-03-13 06:55] LABS: Large Platelets FEW
[2024-03-13 07:43] LABS: Base Excess -3.5 mmol/L (-2.0-3.0)
--- NOTE | 2024-03-13 07:48 | DVHPN2 ---
Progress Note Date Seen: Mar 13, 2024 Has the PT tested + for MRSA If YES, has PT been informed?: Yes Medical Necessity Reason Pt with a Central, PICC or Fol: Yes The following are medically ne: Serrano Catheter Reason for serrano catheter: Strict I&O Subjective Review of Systems Pt remains intubated with mechanical ventilator and vasopressor support in ICU 7. She admits to x 4 Objective vital signs Vital Sign Date Time Temp Pulse Resp B/P (MAP) Pulse Ox O2 Delivery O2 Flow Rate FiO2 03/13/24 07:00 135/49 03/13/24 06:45 64 14 99 03/13/24 06:00 Mechanical Ventilator+ 30 30 03/13/24 04:00 99.0 99.0 Total Intake and Output 03/12/24 03/12/24 03/13/24 15:00 23:00 07:00 Intake Total 905.570 ml 661.340 ml 625.419 ml Output Total 875 ml 950 ml Balance 905.570 ml -213.660 ml -324.581 ml medications Current Medications Medications Dose Ordered Sig/Wm Route Start Time Stop Time Status Last Admin Dose Admin Ondansetron HCl 4 mg Q4HP PRN IV 03/03/24 00:15 03/03/24 18:33 4 MG Nitroglycerin 0.4 mg Q5MINP PRN SL 03/03/24 00:15 Pantoprazole Sodium 40 mg DAILY IV 03/03/24 10:00 03/12/24 09:39 40 MG Morphine Sulfate 2 mg Q2HP PRN IV 03/08/24 12:45 03/10/24 15:22 2 MG Acetaminophen/ Hydrocodone Bitart 1 tab Q4HPRN PRN PO 03/08/24 12:45 Acetaminophen/ Hydrocodone Bitart 1 tab Q4HP PRN PO 03/08/24 12:45 Potassium Chloride/Dextrose/ Sod Cl 1,000 ml @ 75 mls/hr [id number] IV 03/08/24 12:45 03/13/24 07:06 75 MLS/HR Midazolam HCl 50 ml @ 1 mls/hr Q24H IV 03/08/24 17:15 03/09/24 07:44 2 MLS/HR Fentanyl Citrate 250 ml @ 2.5 mls/hr Q24H IV 03/08/24 17:15 03/09/24 13:42 12.5 MLS/HR Vancomycin HCl 0 ml @ 0 mls/hr UD IV 03/09/24 10:30 Piperacillin Sod/ Tazobactam Sod 100 ml @ 25 mls/hr Q8HR IV 03/09/24 12:00 03/13/24 05:48 25 MLS/HR Diagnostic Test (Pha) 1 strip Q6HR 03/10/24 00:00 03/13/24 05:48 1 STRIP Insulin Human Regular FOLLOW SLIDING SCALE Q6HR SC 03/10/24 00:00 03/10/24 18:00 2 UNITS Dextrose 50 ml UD IV 03/10/24 00:00 Acetaminophen 1,000 mg Q8HPRN PRN IV 03/09/24 15:30 03/09/24 16:06 1,000 MG Dexmedetomidine HCl 400 mcg/ Dextrose 100 ml @ 3.835 mls/ hr Q24H IV 03/09/24 18:30 03/13/24 04:54 5.753 MLS/HR Norepinephrine Bitartrate 250 ml @ 3.75 mls/hr Q24H IV 03/11/24 11:30 03/13/24 04:54 1.875 MLS/HR Vancomycin HCl 200 ml @ 200 mls/hr Q16H IV 03/11/24 17:00 03/13/24 00:35 200 MLS/HR Enteral Nutritional Formula 1,000 ml 50ML/HR GT 03/12/24 10:15 Potassium Chloride 100 ml @ 50 mls/hr Q2H IV 03/13/24 05:00 03/13/24 08:59 03/13/24 07:13 50 MLS/HR Examination Afebrile with minimal ventilator and vasopressor support. Neuro: Alert and wake. CV: Normal HR and with labile BP, minimal Levophed dose. Pulmonary: Intiubate and minimal ventilarot support. Abdomen: Soft, ND and NT. Incisions C/D/I. Extremities No edema or tenderness. Labs reviewed. Normal WBC. Hgb slowly decreasing. laboratory and microbiology Laboratory Tests 03/13/24 03:24 Test 03/13/24 03:24 Range/Units Serum Glucose 113 H 74-106 mg/dL Microbiology Date/Time Source Procedure Growth Status 03/09/24 16:32 Blood Blood Culture - Preliminary NO GROWTH AFTER 72 HOURS OF INCUBATION. Resulted 03/08/24 20:36 Trachea Gram Stain - Final Complete 03/08/24 20:36 Trachea Respiratory Culture - Final Complete Labs and/or images reviewed: Labs reviewed by me Problem List/Assessment/Plan Problems(with codes): (1) Ventilator dependent (2) Anemia (3) Ascending colon malignant neoplasm Problem List/Assessment/Plan Neuro: Continue with minimal sedation. Cardio: decrease IVF. continue DVT prophylaxis. Continuous BP and CVP monitoring. Wean vasopressor support as tolerated. Pulmonary: Continue vent support.Attempt extubation if meets criteria. Appreciater Dr. Meza assistance. GI: GI prophylaxis.Continue TF. Hold for extubation. CLD after extubation. . Strict Is and Os. Serrano to gravity. Replace electrolytes as needed. Heme/ID. Agree with Zosyn. Cxs negative to date. Blood draws in pediatric tubes. Endocrine. Tight glycemic control. Musculoskeletal: Passive ROM. Skin. Pressure ulcer precautions and skin care. Plan discussed with: Patient My Orders My Orders Orders - SUBHASH DELGADO MD Procedure Category Date Status Time Communication Order ORDERS 03/12/24 Transmitted 10:11 Nutritional PHA 03/12/24 In Process Supplements (Glucerna 10:15 Dietary Evaluation Review Comments: Advance to diet as tolerated after the GI procedures. Monitor PO intake to meet 75% of her needs Expected Outcomes/Goals: maintain weight. SUBHASH DELGADO MD Mar 13, 2024 07:47
--- NOTE | 2024-03-13 10:20 | DVHPN2 ---
Progress Note - Dictate Date Seen: Mar 13, 2024 Has the PT tested + for MRSA If YES, has PT been informed?: Yes Medical Necessity Reason Pt with a Central, PICC or Fol: Yes The following are medically ne: Serrano Catheter Reason for serrano catheter: Strict I&O Subjective Patient intubated. Awake and following commands during CPAP trial. Denies any pain. Previously failed CPAP. vital signs Vital Sign Date Time Temp Pulse Resp B/P (MAP) Pulse Ox O2 Delivery O2 Flow Rate FiO2 03/13/24 10:04 69 23 103/49 (67) 98 30 03/13/24 06:00 Mechanical Ventilator+ 03/13/24 04:00 99.0 99.0 Total Intake and Output 03/12/24 03/12/24 03/13/24 15:00 23:00 07:00 Intake Total 905.570 ml 661.340 ml 625.419 ml Output Total 875 ml 950 ml Balance 905.570 ml -213.660 ml -324.581 ml medications Current Medications Medications Dose Ordered Sig/Wm Route Start Time Stop Time Status Last Admin Dose Admin Ondansetron HCl 4 mg Q4HP PRN IV 03/03/24 00:15 03/03/24 18:33 4 MG Nitroglycerin 0.4 mg Q5MINP PRN SL 03/03/24 00:15 Pantoprazole Sodium 40 mg DAILY IV 03/03/24 10:00 03/12/24 09:39 40 MG Morphine Sulfate 2 mg Q2HP PRN IV 03/08/24 12:45 03/10/24 15:22 2 MG Acetaminophen/ Hydrocodone Bitart 1 tab Q4HPRN PRN PO 03/08/24 12:45 Acetaminophen/ Hydrocodone Bitart 1 tab Q4HP PRN PO 03/08/24 12:45 Potassium Chloride/Dextrose/ Sod Cl 1,000 ml @ 75 mls/hr [id number] IV 03/08/24 12:45 03/13/24 07:06 75 MLS/HR Midazolam HCl 50 ml @ 1 mls/hr Q24H IV 03/08/24 17:15 03/09/24 07:44 2 MLS/HR Fentanyl Citrate 250 ml @ 2.5 mls/hr Q24H IV 03/08/24 17:15 03/09/24 13:42 12.5 MLS/HR Diagnostic Test (Pha) 1 strip Q6HR 03/10/24 00:00 03/13/24 05:48 1 STRIP Insulin Human Regular FOLLOW SLIDING SCALE Q6HR SC 03/10/24 00:00 03/10/24 18:00 2 UNITS Dextrose 50 ml UD IV 03/10/24 00:00 Acetaminophen 1,000 mg Q8HPRN PRN IV 03/09/24 15:30 03/09/24 16:06 1,000 MG Dexmedetomidine HCl 400 mcg/ Dextrose 100 ml @ 3.835 mls/ hr Q24H IV 03/09/24 18:30 03/13/24 04:54 5.753 MLS/HR Norepinephrine Bitartrate 250 ml @ 3.75 mls/hr Q24H IV 03/11/24 11:30 03/13/24 04:54 1.875 MLS/HR Enteral Nutritional Formula 1,000 ml 50ML/HR GT 03/12/24 10:15 objective General: Intubated Lungs: CTA, no crackles Cardiovascular: RRR, no murmurs, no LE Edema Abdomen: Surgical incision without signs of erythema or fluctuance Neuro: Alert laboratory and microbiology Laboratory Tests 03/13/24 03:24 Test 03/13/24 03:24 Range/Units Serum Glucose 113 H 74-106 mg/dL Problem List 1) Colonic mass as noted on colonoscopy s/p hemicolectomy 03/08 2) Anemia 2/2 GI bleed s/p 4 units PRBCs 3) HTN 4) HLD 5) H/O DVT 6) Shock-Resolved 7) Acute Respiratory Failure 8) ANA MARIA-resolved Assessment/Plan -General surgery, Dr. Chakraborty consulted. Patient s/p hemicolectomy 03/08. -Hematology-oncology consulted for mass. Pathology report pending. -Blood cultures show NGTD. DC vancomycin and Zosyn. WBC improving. - Daily CXR and ABG. Pulmonary following. Requiring high pressure support during weaning trials causing her to fail. Will continue daily SAT and SBT. -ANA MARIA resolving. -Hold anti-hypertensives given hypotension. -Holding anticoagulation at this time given recent surgery. -Starting midodrine due to minimal requirement of levophed. Goal MAP>65. -Goal glucose levels in hospital 140-180. -Protonix 40mg IV qdaily for GI prophylaxis. SCDs for DVT prophylaxis. Tube feedings to be initiated at discretion of general surgery given recent hemicolectomy. -Physical therapy eval pending with possible SNF placement. Full Code. Dietary Evaluation Review Comments: Advance to diet as tolerated after the GI procedures. Monitor PO intake to meet 75% of her needs Expected Outcomes/Goals: maintain weight. Plan discussed with: Patient, Spouse MARVEL BA DO Mar 13, 2024 10:20
--- NOTE | 2024-03-13 10:23 | DVHPN2 ---
Progress Note - Dictate Date Seen: Mar 13, 2024 Has the PT tested + for MRSA If YES, has PT been informed?: Yes Medical Necessity Reason Pt with a Central, PICC or Fol: Yes The following are medically ne: Serrano Catheter Reason for serrano catheter: Strict I&O Subjective Patient was seen and evaluated in follow up in the ICU. Patient is intubated on ventilator. 30% FiO2. Patient receiving vasopressors for hemodynamic support. Patient is having BMs. HGB 8.9, HCT 28.8, K 3.4. Patients potassium was replaced. vital signs Vital Sign Date Time Temp Pulse Resp B/P (MAP) Pulse Ox O2 Delivery O2 Flow Rate FiO2 03/13/24 08:08 63 14 136/51 (79) 99 30 03/13/24 06:00 Mechanical Ventilator+ 03/13/24 04:00 99.0 99.0 Total Intake and Output 03/12/24 03/12/24 03/13/24 15:00 23:00 07:00 Intake Total 905.570 ml 661.340 ml 625.419 ml Output Total 875 ml 950 ml Balance 905.570 ml -213.660 ml -324.581 ml medications Current Medications Medications Dose Ordered Sig/Wm Route Start Time Stop Time Status Last Admin Dose Admin Ondansetron HCl 4 mg Q4HP PRN IV 03/03/24 00:15 03/03/24 18:33 4 MG Nitroglycerin 0.4 mg Q5MINP PRN SL 03/03/24 00:15 Pantoprazole Sodium 40 mg DAILY IV 03/03/24 10:00 03/12/24 09:39 40 MG Morphine Sulfate 2 mg Q2HP PRN IV 03/08/24 12:45 03/10/24 15:22 2 MG Acetaminophen/ Hydrocodone Bitart 1 tab Q4HPRN PRN PO 03/08/24 12:45 Acetaminophen/ Hydrocodone Bitart 1 tab Q4HP PRN PO 03/08/24 12:45 Potassium Chloride/Dextrose/ Sod Cl 1,000 ml @ 75 mls/hr [id number] IV 03/08/24 12:45 03/13/24 07:06 75 MLS/HR Midazolam HCl 50 ml @ 1 mls/hr Q24H IV 03/08/24 17:15 03/09/24 07:44 2 MLS/HR Fentanyl Citrate 250 ml @ 2.5 mls/hr Q24H IV 03/08/24 17:15 03/09/24 13:42 12.5 MLS/HR Diagnostic Test (Pha) 1 strip Q6HR 03/10/24 00:00 03/13/24 05:48 1 STRIP Insulin Human Regular FOLLOW SLIDING SCALE Q6HR SC 03/10/24 00:00 03/10/24 18:00 2 UNITS Dextrose 50 ml UD IV 03/10/24 00:00 Acetaminophen 1,000 mg Q8HPRN PRN IV 03/09/24 15:30 03/09/24 16:06 1,000 MG Dexmedetomidine HCl 400 mcg/ Dextrose 100 ml @ 3.835 mls/ hr Q24H IV 03/09/24 18:30 03/13/24 04:54 5.753 MLS/HR Norepinephrine Bitartrate 250 ml @ 3.75 mls/hr Q24H IV 03/11/24 11:30 03/13/24 04:54 1.875 MLS/HR Enteral Nutritional Formula 1,000 ml 50ML/HR GT 03/12/24 10:15 objective GENERAL: Intubated on ventilator. LUNGS: Decreased breath sounds. CARDIOVASCULAR: Heart sounds are good. ABDOMEN: Soft. laboratory and microbiology Laboratory Tests 03/13/24 03:24 Test 03/13/24 03:24 Range/Units Serum Glucose 113 H 74-106 mg/dL Problem List Colonic mass found on colonoscopy. GI Bleed. Anemia. HTN. HLD. H/O DVT. Assessment/Plan Continued all current supportive medical care. Morphine and [place] for pain management. GI prophylactics. Vasopressors for hemodynamic support. IV antibiotics as ordered. Additional plan as per the hospital course. Critical care time of 45 minutes provided to include time spent evaluation of patient at bedside, when appropriate patient/family education for diagnosis, treatment plan, review of pertinent medical information and discussion of care with specialty providers and PCP. Mechanical ventilator parameters, treatment and adjustments have personally been reviewed by me and treatment plan by media senior recruiter has also been reviewed. Dietary Evaluation Review Comments: Advance to diet as tolerated after the GI procedures. Monitor PO intake to meet 75% of her needs Expected Outcomes/Goals: maintain weight. Plan discussed with: MARIANGEL Aggarwal MD Mar 13, 2024 10:13
[2024-03-13] MEDS ORDERED: MIDODRINE HCL 10 MG TAB NG SCH (12:00)
[2024-03-13 12:25] LABS: Base Excess -3.8 mmol/L (-2.0-3.0)
[2024-03-13] MEDS ORDERED: hydrALAZINE HCL 20 MG/ML VL IV PRN (14:15)
[2024-03-13] MEDS ORDERED: ACETYLCYSTEINE 10 %(100MG/ML) SOL 4ML NEB SCH (14:15)
--- NOTE | 2024-03-13 18:55 | DVHPN2 ---
Progress Note - Dictate Date Seen: Mar 13, 2024 Has the PT tested + for MRSA If YES, has PT been informed?: Yes Medical Necessity Reason Pt with a Central, PICC or Fol: Yes The following are medically ne: Serrano Catheter Reason for serrano catheter: Strict I&O Subjective Patient seen in ICU 107 She is S/P laparoscopic hand assisted right hemicolectomy Patient is currently extubated on face mask She had a bowel movement today vital signs Vital Sign Date Time Temp Pulse Resp B/P (MAP) Pulse Ox O2 Delivery O2 Flow Rate FiO2 03/13/24 18:43 99 Mask 10.0 03/13/24 18:43 N/A 03/13/24 18:00 98 03/13/24 18:00 26 03/13/24 11:59 152/65 (94) 03/13/24 04:00 99.0 99.0 Total Intake and Output 03/12/24 03/12/24 03/13/24 15:00 23:00 07:00 Intake Total 905.570 ml 661.340 ml 625.419 ml Output Total 875 ml 950 ml Balance 905.570 ml -213.660 ml -324.581 ml medications Current Medications Medications Dose Ordered Sig/Wm Route Start Time Stop Time Status Last Admin Dose Admin Ondansetron HCl 4 mg Q4HP PRN IV 03/03/24 00:15 03/03/24 18:33 4 MG Nitroglycerin 0.4 mg Q5MINP PRN SL 03/03/24 00:15 Pantoprazole Sodium 40 mg DAILY IV 03/03/24 10:00 03/13/24 11:18 40 MG Morphine Sulfate 2 mg Q2HP PRN IV 03/08/24 12:45 03/10/24 15:22 2 MG Acetaminophen/ Hydrocodone Bitart 1 tab Q4HPRN PRN PO 03/08/24 12:45 Acetaminophen/ Hydrocodone Bitart 1 tab Q4HP PRN PO 03/08/24 12:45 Midazolam HCl 50 ml @ 1 mls/hr Q24H IV 03/08/24 17:15 03/09/24 07:44 2 MLS/HR Fentanyl Citrate 250 ml @ 2.5 mls/hr Q24H IV 03/08/24 17:15 03/09/24 13:42 12.5 MLS/HR Diagnostic Test (Pha) 1 strip Q6HR 03/10/24 00:00 03/13/24 18:08 1 STRIP Insulin Human Regular FOLLOW SLIDING SCALE Q6HR SC 03/10/24 00:00 03/10/24 18:00 2 UNITS Dextrose 50 ml UD IV 03/10/24 00:00 Acetaminophen 1,000 mg Q8HPRN PRN IV 03/09/24 15:30 03/09/24 16:06 1,000 MG Dexmedetomidine HCl 400 mcg/ Dextrose 100 ml @ 3.835 mls/ hr Q24H IV 03/09/24 18:30 03/13/24 04:54 5.753 MLS/HR Norepinephrine Bitartrate 250 ml @ 3.75 mls/hr Q24H IV 03/11/24 11:30 03/13/24 04:54 1.875 MLS/HR Enteral Nutritional Formula 1,000 ml 50ML/HR GT 03/12/24 10:15 Hydralazine HCl 10 mg Q6HP PRN IV 03/13/24 14:15 objective Well-developed well-nourished lady sedated on face mask HEENT: Pale conjunctiva, otherwise normocephalic atraumatic extraocular movements are intact Heart: Regular rate and rhythm Abdomen: Dressing dry Extremity no clubbing cyanosis or edema laboratory and microbiology Laboratory Tests 03/13/24 11:59 03/13/24 03:24 Test 03/13/24 03:24 Range/Units Serum Glucose 113 H 74-106 mg/dL Problems(with codes): (1) Ventilator dependent (2) Anemia (3) Ascending colon malignant neoplasm (4) Colon cancer (5) Symptomatic anemia Prognosis Assessment plan Patient is clinically stabilizing and improving Her leukocytosis has normalized Patient was tolerating NG tube feedings Possible swallow eval in the next 24-48 hours if the patient remained stable and then clear liquid diet as recommended by surgical consult Await final pathology results Dietary Evaluation Review Comments: Advance to diet as tolerated after the GI procedures. Monitor PO intake to meet 75% of her needs Expected Outcomes/Goals: maintain weight. Plan discussed with: Other (ICU Nurse) HORTENSIA FERRARO MD Mar 13, 2024 18:55
--- NOTE | 2024-03-13 22:02 | DVHPN2 ---
Progress Note - Dictate Date Seen: Mar 13, 2024 Has the PT tested + for MRSA If YES, has PT been informed?: Yes Medical Necessity Reason Pt with a Central, PICC or Fol: Yes The following are medically ne: Serrano Catheter Reason for serrano catheter: Strict I&O Subjective Patient seen and examined at bedside. S/p extubation, on supplemental oxygen Overnight events reviewed. vital signs Vital Sign Date Time Temp Pulse Resp B/P (MAP) Pulse Ox O2 Delivery O2 Flow Rate FiO2 03/13/24 20:00 98 03/13/24 20:00 28 98 Mechanical Ventilator+ 30 30 03/13/24 20:00 10 03/13/24 18:45 139/54 (82) 152/44 (80) 03/13/24 16:00 98.7 98.7 Total Intake and Output 03/12/24 03/12/24 03/13/24 15:00 23:00 07:00 Intake Total 905.570 ml 661.340 ml 625.419 ml Output Total 875 ml 950 ml Balance 905.570 ml -213.660 ml -324.581 ml medications Current Medications Medications Dose Ordered Sig/Wm Route Start Time Stop Time Status Last Admin Dose Admin Ondansetron HCl 4 mg Q4HP PRN IV 03/03/24 00:15 03/03/24 18:33 4 MG Nitroglycerin 0.4 mg Q5MINP PRN SL 03/03/24 00:15 Pantoprazole Sodium 40 mg DAILY IV 03/03/24 10:00 03/13/24 11:18 40 MG Morphine Sulfate 2 mg Q2HP PRN IV 03/08/24 12:45 03/10/24 15:22 2 MG Acetaminophen/ Hydrocodone Bitart 1 tab Q4HPRN PRN PO 03/08/24 12:45 Acetaminophen/ Hydrocodone Bitart 1 tab Q4HP PRN PO 03/08/24 12:45 Midazolam HCl 50 ml @ 1 mls/hr Q24H IV 03/08/24 17:15 03/09/24 07:44 2 MLS/HR Fentanyl Citrate 250 ml @ 2.5 mls/hr Q24H IV 03/08/24 17:15 03/09/24 13:42 12.5 MLS/HR Diagnostic Test (Pha) 1 strip Q6HR 03/10/24 00:00 03/13/24 18:08 1 STRIP Insulin Human Regular FOLLOW SLIDING SCALE Q6HR SC 03/10/24 00:00 03/10/24 18:00 2 UNITS Dextrose 50 ml UD IV 03/10/24 00:00 Acetaminophen 1,000 mg Q8HPRN PRN IV 03/09/24 15:30 03/09/24 16:06 1,000 MG Dexmedetomidine HCl 400 mcg/ Dextrose 100 ml @ 3.835 mls/ hr Q24H IV 03/09/24 18:30 03/13/24 04:54 5.753 MLS/HR Norepinephrine Bitartrate 250 ml @ 3.75 mls/hr Q24H IV 03/11/24 11:30 03/13/24 04:54 1.875 MLS/HR Enteral Nutritional Formula 1,000 ml 50ML/HR GT 03/12/24 10:15 Hydralazine HCl 10 mg Q6HP PRN IV 03/13/24 14:15 objective Gen.: Patient lying in bed in no apparent distress. On supplemental oxygen. Head: Normocephalic, atraumatic. Eyes: EOMI/PERRLA. Ears: Normal hearing. Normal anatomy. Neck/trachea: Trachea midline, supple. Nose: Normal external anatomy. Mouth: Moist mucous membranes. Chest: Decreased air entry bilaterally. No wheezing or rhonchi. Cardiovascular: Positive S1, positive S2. Regular rate and rhythm. Abdomen: Positive bowel sounds in all 4 quadrants. Soft, non-tender, non- distended. : Deferred. Rectal: Deferred. Skin: Warm, dry. Intact. Extremities: 2+ radial pulses bilaterally. No lower extremity edema. Neuro: Awake, alert, oriented x3. No gross motor or sensory deficits. Cranial nerves II through XII intact. Gait not assessed. laboratory and microbiology Laboratory Tests 03/13/24 11:59 03/13/24 03:24 Test 03/13/24 03:24 Range/Units Serum Glucose 113 H 74-106 mg/dL Assessment/Plan Impression: Acute hypoxic respiratory failure On mechanical ventilator Pulmonary edema Pleural effusions Atelectasis Obesity Events: Patient tolerated CPAP, was subsequently extubated uneventfully. She was placed on cool aerosol mask. No respiratory distress Off Precedex Off Levophed. Completed antibiotics WBC within normal limits. Follow up Surgery recommendations. Continue potassium supplementation - 50 ml/hr. Monitor renal function Rest of plan as noted below Plan: s/p extubation On supplemental oxygen. CXR notable for: Pulmonary congestion. Left pleural effusion. ABG reviewed, notable for alkalemia. Limited chest U/S notable for B-lines suggestive of pulmonary interstitial edema. Lasix 20 mg IVP x1 Already received Lasix 40 mg Off sedation Antibiotics. F/u cultures. Pressors as necessary to maintain a mean arterial blood pressure greater than 65 mmHg. Maintain euvolemia. Monitor renal function Monitor electrolytes. Supplement as necessary. Monitor ins and outs. Diet and lifestyle modifications for weight reduction Obesity - complicates all care. GI prophylaxis. DVT prophylaxis. Prognosis: Poor given patient's multiple co-morbidities. Condition: Critical Rest of plan per hospitalist and other consultants. A total of 35 minutes of critical care time was spent reviewing the patient record, examining the patient, making a diagnostic and therapeutic plan, discussing this plan with the medical personnel, following up on diagnostic studies and following the patient for clinical stability excluding any and all procedures. At least 50% of this time was spent in direct, [id number] contact. Thank you Dr. Joselito Marroquin MD, for allowing me to participate in this patient's care. Further recommendations will depend on the patient's clinical course. Please do not hesitate to contact me if you have any questions or concerns. This medical document was created using an electronic medical record system with [employer] dictation system. Although these documentations are being carefully reviewed, there may still be some phonetic and typographical changes. The errors are purely typographical, due to imperfection on the software program, and do not reflect any compromise in the patient's medical care. Dietary Evaluation Review Comments: Advance to diet as tolerated after the GI procedures. Monitor PO intake to meet 75% of her needs Expected Outcomes/Goals: maintain weight. Plan discussed with: Other (AARTI Braden) Critical Care Time(min): 35 VICK ARANA MD Mar 13, 2024 22:02
[2024-03-14] VITALS (56 sets, daily range): BP systolic 115–184; BP diastolic 32–110; PULSE 82–110; RESP 13–32; TEMP 98.1–98.8; O2SAT 98–100
[2024-03-14 03:34] LABS: Basophils # (auto) 0.1 10 ^3/uL (0-0.2); Basophils % (auto) 1.2 % (0.0-2.0); Eosinophils # (auto) 0.1 10 ^3/uL (0-0.8); Eosinophils % (auto) 1.4 % (0.0-7.0); Hemoglobin 9.2 g/dL (12.2-16.2); Lymphocytes # (auto) 0.5 10 ^3/uL (0.4-5.4); Lymphocytes % (auto) 8.7 % (10.0-50.0); Mean Corpuscular Hemoglobin 24.8 pg (28.0-32.0); Mean Corpuscular Hgb Conc. 31.8 g/dL (32.0-36.0); Monocytes # (auto) 0.7 10 ^3/uL (0-1.3); Monocytes % (auto) 12.2 % (0.0-12.0); Neutrophils # (auto) 4.4 10 ^3/uL (1.6-8.6); Neutrophils % (auto) 76.5 % (37.0-80.0); Nucleated Red Blood Cells % 0.1 %; Platelet Count (auto) 276 10^3/uL (140-450); Red Blood Cells 3.73 10^6/uL (4.0-5.20); White Blood Cell 5.7 10^3/uL (4.4-10.8)
[2024-03-14 03:47] LABS: Chloride 108 mmol/L (98-107); Potassium 3.8 mmol/L (3.5-5.1); Sodium 138 mmol/L (136-145)
[2024-03-14 03:48] LABS: Anion Gap 8 (5-15); Carbon Dioxide 22 mmol/L (20-31)
[2024-03-14 03:49] LABS: Calcium 8.5 mg/dL (8.7-10.4)
[2024-03-14 03:51] LABS: Red Cell Distribution Width 25.9 % (11.8-14.3)
[2024-03-14 03:53] LABS: Glucose 86 mg/dL (74-106)
[2024-03-14 03:54] LABS: BUN/Creatinine Ratio 14.6 (10.0-20.0); Blood Urea Nitrogen 6 mg/dL (9-23)
[2024-03-14] MEDS ORDERED: LABETALOL HCL 20 MG/4 ML VL IV PRN (08:45)
--- NOTE | 2024-03-14 11:27 | DVHPN2 ---
Progress Note - Dictate Date Seen: Mar 14, 2024 Has the PT tested + for MRSA If YES, has PT been informed?: Yes Medical Necessity Reason Pt with a Central, PICC or Fol: Yes The following are medically ne: Serrano Catheter Reason for serrano catheter: Strict I&O Subjective Patient extubated 03/13. States she feels comfortable. Discussed SNF on discharge however patient expressing hesitance. vital signs Vital Sign Date Time Temp Pulse Resp B/P (MAP) Pulse Ox O2 Delivery O2 Flow Rate FiO2 03/14/24 08:00 27 100 Nasal Cannula* 4 36 03/14/24 06:45 85 141/52 (81) 155/51 (85) 03/14/24 04:00 98.1 98.1 Total Intake and Output 03/13/24 03/13/24 03/14/24 15:00 23:00 07:00 Intake Total 475.938 ml 0 ml Output Total 725 ml 525 ml Balance 475.938 ml -725 ml -525 ml medications Current Medications Medications Dose Ordered Sig/Wm Route Start Time Stop Time Status Last Admin Dose Admin Ondansetron HCl 4 mg Q4HP PRN IV 03/03/24 00:15 03/03/24 18:33 4 MG Nitroglycerin 0.4 mg Q5MINP PRN SL 03/03/24 00:15 Pantoprazole Sodium 40 mg DAILY IV 03/03/24 10:00 03/14/24 09:11 40 MG Morphine Sulfate 2 mg Q2HP PRN IV 03/08/24 12:45 03/10/24 15:22 2 MG Acetaminophen/ Hydrocodone Bitart 1 tab Q4HPRN PRN PO 03/08/24 12:45 Acetaminophen/ Hydrocodone Bitart 1 tab Q4HP PRN PO 03/08/24 12:45 Midazolam HCl 50 ml @ 1 mls/hr Q24H IV 03/08/24 17:15 03/09/24 07:44 2 MLS/HR Fentanyl Citrate 250 ml @ 2.5 mls/hr Q24H IV 03/08/24 17:15 03/09/24 13:42 12.5 MLS/HR Diagnostic Test (Pha) 1 strip Q6HR 03/10/24 00:00 03/14/24 05:58 1 STRIP Insulin Human Regular FOLLOW SLIDING SCALE Q6HR SC 03/10/24 00:00 03/10/24 18:00 2 UNITS Dextrose 50 ml UD IV 03/10/24 00:00 Acetaminophen 1,000 mg Q8HPRN PRN IV 03/09/24 15:30 03/09/24 16:06 1,000 MG Dexmedetomidine HCl 400 mcg/ Dextrose 100 ml @ 3.835 mls/ hr Q24H IV 03/09/24 18:30 03/13/24 04:54 5.753 MLS/HR Norepinephrine Bitartrate 250 ml @ 3.75 mls/hr Q24H IV 03/11/24 11:30 03/13/24 04:54 1.875 MLS/HR Enteral Nutritional Formula 1,000 ml 50ML/HR GT 03/12/24 10:15 Hydralazine HCl 10 mg Q6HP PRN IV 03/13/24 14:15 Labetalol HCl 10 mg Q2HPRN PRN IV 03/14/24 08:45 objective General: Comfortable Lungs: CTA, no crackles Cardiovascular: RRR, no murmurs, no LE Edema Abdomen: Surgical incision without signs of erythema or fluctuance Neuro: Alert laboratory and microbiology Laboratory Tests 03/14/24 03:18 Test 03/14/24 03:18 Range/Units Serum Glucose 86 74-106 mg/dL Problem List 1) Colonic mass as noted on colonoscopy s/p hemicolectomy 03/08 2) Anemia 2/2 GI bleed s/p 4 units PRBCs 3) HTN 4) HLD 5) H/O DVT 6) Shock-Resolved 7) Acute Respiratory Failure 8) ANA MARIA-resolved Assessment/Plan -General surgery, Dr. Chakraborty consulted. Patient s/p hemicolectomy 03/08. -Hematology-oncology consulted for mass. Pathology report pending. -Blood cultures show NGTD. DC vancomycin and Zosyn. WBC improving. -Extubated 03/13. -ANA MARIA resolved -Hydralazine and labetolol PRN for hypertension. Will switch to PO once tolerating diet. -Holding anticoagulation at this time given recent surgery. -Goal glucose levels in hospital 140-180. -Protonix 40mg IV qdaily for GI prophylaxis. SCDs for DVT prophylaxis. -Physical therapy eval pending with possible SNF placement. Full Code. Dietary Evaluation Review Comments: Advance to diet as tolerated after the GI procedures. Monitor PO intake to meet 75% of her needs Expected Outcomes/Goals: maintain weight. Plan discussed with: Patient MARVEL BA DO Mar 14, 2024 11:27
--- NOTE | 2024-03-14 13:16 | DVH ---
Upper Extremity Venous Duplex Clinical History: LT ARM SWELLING Comparison: None Technique: Duplex Doppler evaluation of the venous system of the left lower neck and upper extremity including c olor Doppler and spectral/pulsed waveform analysis was performed. Findings: The internal jugular vein demonstrates appropriate compressibility and waveform variability. The subclavian vein is patent on color Doppler evaluation without intraluminal thrombus and demonstra laura waveform variability. The visualized portion of the brachiocephalic vein is patent on color Doppler evaluation without intr aluminal thrombus and demonstrates waveform variability. The axillary vein demonstrates appropriate compressibility and waveform variability. The brachial veins demonstrate appropriate compressibility and patency on Doppler evaluation. The basilic vein demonstrates appropriate compressibility and patency on Doppler evaluation. Occlusive thrombophlebitis of the cephalic vein in the left lower arm noted. Impression: 1. No venous thrombus identified in the left upper extremity vessels evaluated above. 2. Occlusive thrombophlebitis of the left lower arm. The findings were reported to AARTI Braden upon completion of the exam by the angiography technologist.
--- NOTE | 2024-03-14 16:08 | DVHPN2 ---
Progress Note Date Seen: Mar 14, 2024 Has the PT tested + for MRSA If YES, has PT been informed?: Yes Medical Necessity Reason Pt with a Central, PICC or Fol: Yes The following are medically ne: Central Line, Serrano Catheter Reason for serrano catheter: Strict I&O Subjective Review of Systems Pt feels well. Denies n/v or abdominal pain. Admits BM Objective vital signs Vital Sign Date Time Temp Pulse Resp B/P (MAP) Pulse Ox O2 Delivery O2 Flow Rate FiO2 03/14/24 14:00 85 03/14/24 14:00 22 99 Nasal Cannula* 3 32 03/14/24 11:30 138/59 (85) 03/14/24 08:00 98.4 98.4 Total Intake and Output 03/13/24 03/13/24 03/14/24 15:00 23:00 07:00 Intake Total 475.938 ml 0 ml Output Total 725 ml 525 ml Balance 475.938 ml -725 ml -525 ml medications Current Medications Medications Dose Ordered Sig/Wm Route Start Time Stop Time Status Last Admin Dose Admin Ondansetron HCl 4 mg Q4HP PRN IV 03/03/24 00:15 03/03/24 18:33 4 MG Nitroglycerin 0.4 mg Q5MINP PRN SL 03/03/24 00:15 Pantoprazole Sodium 40 mg DAILY IV 03/03/24 10:00 03/14/24 09:11 40 MG Morphine Sulfate 2 mg Q2HP PRN IV 03/08/24 12:45 03/10/24 15:22 2 MG Acetaminophen/ Hydrocodone Bitart 1 tab Q4HPRN PRN PO 03/08/24 12:45 Acetaminophen/ Hydrocodone Bitart 1 tab Q4HP PRN PO 03/08/24 12:45 Midazolam HCl 50 ml @ 1 mls/hr Q24H IV 03/08/24 17:15 03/09/24 07:44 2 MLS/HR Fentanyl Citrate 250 ml @ 2.5 mls/hr Q24H IV 03/08/24 17:15 03/09/24 13:42 12.5 MLS/HR Diagnostic Test (Pha) 1 strip Q6HR 03/10/24 00:00 03/14/24 12:24 1 STRIP Insulin Human Regular FOLLOW SLIDING SCALE Q6HR SC 03/10/24 00:00 03/10/24 18:00 2 UNITS Dextrose 50 ml UD IV 03/10/24 00:00 Acetaminophen 1,000 mg Q8HPRN PRN IV 03/09/24 15:30 03/09/24 16:06 1,000 MG Dexmedetomidine HCl 400 mcg/ Dextrose 100 ml @ 3.835 mls/ hr Q24H IV 03/09/24 18:30 03/13/24 04:54 5.753 MLS/HR Norepinephrine Bitartrate 250 ml @ 3.75 mls/hr Q24H IV 03/11/24 11:30 03/13/24 04:54 1.875 MLS/HR Enteral Nutritional Formula 1,000 ml 50ML/HR GT 03/12/24 10:15 Hydralazine HCl 10 mg Q6HP PRN IV 03/13/24 14:15 Labetalol HCl 10 mg Q2HPRN PRN IV 03/14/24 08:45 Examination AFVSS. Neuro: Intact. CV: Stable. Lungs: Extubated. Effortless breathing. Normal O2 Sat. Abdomen: soft, ND and NT. Incision C/D/I. Extremities: Left hand swelling. Left SCV TLC. No DVT. Left thrombophlebitis. laboratory and microbiology Laboratory Tests 03/14/24 03:18 Test 03/14/24 03:18 Range/Units Serum Glucose 86 74-106 mg/dL Microbiology Date/Time Source Procedure Growth Status 03/09/24 16:32 Blood Blood Culture - Preliminary NO GROWTH AFTER 72 HOURS OF INCUBATION. Resulted 03/08/24 20:36 Trachea Gram Stain - Final Complete 03/08/24 20:36 Trachea Respiratory Culture - Final Complete Labs and/or images reviewed: Labs reviewed by wi Problem List/Assessment/Plan Problems(with codes): (1) Ascending colon malignant neoplasm (2) Anemia Problem List/Assessment/Plan Neuro: Stable. Cardio: Stable.Continue DVT prophylaxis. Remove TLC. Get PIVs. Pulmonary: I/S. GI: GI prophylaxis.CLD. If tolerates advance directly to cardiac diet. If tolreates solild diet tomorrow, may be discharged from surgical standpoint. . Remove Serrano. Strict Is and Os. Replace electrolytes as needed. Heme/ID. May D/C Zosyn. Cxs negative to date. Blood draws in pediatric tubes. Endocrine. Tight glycemic control. Musculoskeletal: PT. Skin. Pressure ulcer precautions and skin care. Plan discussed with: Patient, Other (RN) Dietary Evaluation Review Comments: Advance to diet as tolerated after the GI procedures. Monitor PO intake to meet 75% of her needs Expected Outcomes/Goals: maintain weight. SUBHASH DELGADO MD Mar 14, 2024 16:08
--- NOTE | 2024-03-14 18:26 | DVHPN2 ---
Progress Note - Dictate Date Seen: Mar 14, 2024 Has the PT tested + for MRSA If YES, has PT been informed?: Yes Medical Necessity Reason Pt with a Central, PICC or Fol: Yes The following are medically ne: Central Line, Serrano Catheter Reason for serrano catheter: Strict I&O Subjective Patient seen in ICU 107 Patient is extubated awake and alert Patient has had three bowel movements today No GI bleeding is reported vital signs Vital Sign Date Time Temp Pulse Resp B/P (MAP) Pulse Ox O2 Delivery O2 Flow Rate FiO2 03/14/24 16:00 21 99 Nasal Cannula* 3 32 03/14/24 16:00 85 03/14/24 11:30 138/59 (85) 03/14/24 08:00 98.4 98.4 Total Intake and Output 03/13/24 03/13/24 03/14/24 14:59 22:59 06:59 Intake Total 480.711 ml 0 ml Output Total 725 ml 525 ml Balance 480.711 ml -725 ml -525 ml medications Current Medications Medications Dose Ordered Sig/Wm Route Start Time Stop Time Status Last Admin Dose Admin Ondansetron HCl 4 mg Q4HP PRN IV 03/03/24 00:15 03/03/24 18:33 4 MG Nitroglycerin 0.4 mg Q5MINP PRN SL 03/03/24 00:15 Pantoprazole Sodium 40 mg DAILY IV 03/03/24 10:00 03/14/24 09:11 40 MG Morphine Sulfate 2 mg Q2HP PRN IV 03/08/24 12:45 03/10/24 15:22 2 MG Acetaminophen/ Hydrocodone Bitart 1 tab Q4HPRN PRN PO 03/08/24 12:45 Acetaminophen/ Hydrocodone Bitart 1 tab Q4HP PRN PO 03/08/24 12:45 Midazolam HCl 50 ml @ 1 mls/hr Q24H IV 03/08/24 17:15 03/09/24 07:44 2 MLS/HR Diagnostic Test (Pha) 1 strip Q6HR 03/10/24 00:00 03/14/24 12:24 1 STRIP Insulin Human Regular FOLLOW SLIDING SCALE Q6HR SC 03/10/24 00:00 03/10/24 18:00 2 UNITS Dextrose 50 ml UD IV 03/10/24 00:00 Acetaminophen 1,000 mg Q8HPRN PRN IV 03/09/24 15:30 03/09/24 16:06 1,000 MG Enteral Nutritional Formula 1,000 ml 50ML/HR GT 03/12/24 10:15 Hydralazine HCl 10 mg Q6HP PRN IV 03/13/24 14:15 Labetalol HCl 10 mg Q2HPRN PRN IV 03/14/24 08:45 objective Well-developed well-nourished awake alert in no acute distress HEENT: Pale conjunctiva, otherwise normocephalic atraumatic extraocular movements are intact Heart: Regular rate and rhythm Abdomen: Dressing dry Extremity no clubbing cyanosis or edema laboratory and microbiology Laboratory Tests 03/14/24 03:18 Test 03/14/24 03:18 Range/Units Serum Glucose 86 74-106 mg/dL Problems(with codes): (1) Ascending colon malignant neoplasm (2) Anemia Prognosis Plan Patient will undergo swallow evaluation Patient will be started on clear liquid diet as recommended by surgical consult We will advance diet slowly as tolerated Await final pathology results Dietary Evaluation Review Comments: Advance to diet as tolerated after the GI procedures. Monitor PO intake to meet 75% of her needs Expected Outcomes/Goals: maintain weight. Plan discussed with: Patient, Other (ICU Nurse) HORTENSIA FERRARO MD Mar 14, 2024 18:26
[2024-03-14] MEDS ORDERED: hydrALAZINE HCL 20 MG/ML VL IV PRN (19:30)
--- NOTE | 2024-03-14 20:59 | DVHPN2 ---
Progress Note - Dictate Date Seen: Mar 14, 2024 Has the PT tested + for MRSA If YES, has PT been informed?: Yes Medical Necessity Reason Pt with a Central, PICC or Fol: Yes The following are medically ne: Central Line, Serrano Catheter Reason for serrano catheter: Strict I&O Subjective Patient seen and examined at bedside. On supplemental oxygen Overnight events reviewed. vital signs Vital Sign Date Time Temp Pulse Resp B/P (MAP) Pulse Ox O2 Delivery O2 Flow Rate FiO2 03/14/24 20:00 98.2 96 26 133/58 (83) 99 98.2 03/14/24 20:00 Nasal Cannula* 3 32 Total Intake and Output 03/13/24 03/13/24 03/14/24 15:00 23:00 07:00 Intake Total 475.938 ml 0 ml Output Total 725 ml 525 ml Balance 475.938 ml -725 ml -525 ml medications Current Medications Medications Dose Ordered Sig/Wm Route Start Time Stop Time Status Last Admin Dose Admin Ondansetron HCl 4 mg Q4HP PRN IV 03/03/24 00:15 03/03/24 18:33 4 MG Nitroglycerin 0.4 mg Q5MINP PRN SL 03/03/24 00:15 Pantoprazole Sodium 40 mg DAILY IV 03/03/24 10:00 03/14/24 09:11 40 MG Morphine Sulfate 2 mg Q2HP PRN IV 03/08/24 12:45 03/10/24 15:22 2 MG Acetaminophen/ Hydrocodone Bitart 1 tab Q4HPRN PRN PO 03/08/24 12:45 Acetaminophen/ Hydrocodone Bitart 1 tab Q4HP PRN PO 03/08/24 12:45 Midazolam HCl 50 ml @ 1 mls/hr Q24H IV 03/08/24 17:15 03/09/24 07:44 2 MLS/HR Diagnostic Test (Pha) 1 strip Q6HR 03/10/24 00:00 03/14/24 18:00 1 STRIP Insulin Human Regular FOLLOW SLIDING SCALE Q6HR SC 03/10/24 00:00 03/10/24 18:00 2 UNITS Dextrose 50 ml UD IV 03/10/24 00:00 Acetaminophen 1,000 mg Q8HPRN PRN IV 03/09/24 15:30 03/09/24 16:06 1,000 MG Enteral Nutritional Formula 1,000 ml 50ML/HR GT 03/12/24 10:15 Labetalol HCl 10 mg Q2HPRN PRN IV 03/14/24 08:45 Hydralazine HCl 5 mg Q4HP PRN IV 03/14/24 19:30 objective Gen.: Patient lying in bed in no apparent distress. On supplemental oxygen. Head: Normocephalic, atraumatic. Eyes: EOMI/PERRLA. Ears: Normal hearing. Normal anatomy. Neck/trachea: Trachea midline, supple. Nose: Normal external anatomy. Mouth: Moist mucous membranes. Chest: Decreased air entry bilaterally. No wheezing or rhonchi. Cardiovascular: Positive S1, positive S2. Regular rate and rhythm. Abdomen: Positive bowel sounds in all 4 quadrants. Soft, non-tender, non- distended. : Deferred. Rectal: Deferred. Skin: Warm, dry. Intact. Extremities: 2+ radial pulses bilaterally. No lower extremity edema. Neuro: Awake, alert, oriented x3. No gross motor or sensory deficits. Cranial nerves II through XII intact. Gait not assessed. laboratory and microbiology Laboratory Tests 03/14/24 03:18 Test 03/14/24 03:18 Range/Units Serum Glucose 86 74-106 mg/dL Assessment/Plan Impression: Acute hypoxic respiratory failure On mechanical ventilator Pulmonary edema Pleural effusions Atelectasis Obesity Events: Remains on supplemental oxygen 3 LPM NC Improved O2 requirements, down from 4 LPM Taper O2 as tolerated U/S venous Doppler of LUE notable for occlusive thrombophlebitis of left lower arm. Pain control Avoid oversedation Off Levophed since 9 AM on 03/13/24. Completed antibiotics WBC within normal limits. Incentive spirometry Hydralazine 5 mg IV q.4 hours PRN SBP >160. Discontinue midodrine. Patient is stable from the pulmonary standpoint for downgrade to telemetry. HOB elevation Aspiration precautions. Surgery recommendations appreciated. Rest of plan as noted below Plan: s/p extubation on 03/13. On supplemental oxygen. Titrate to keep sats above 92%. CXR notable for: Pulmonary congestion. Left pleural effusion. ABG reviewed, notable for alkalemia. Limited chest U/S notable for B-lines suggestive of pulmonary interstitial edema. Lasix 20 mg IVP x1 Already received Lasix 40 mg Off sedation Antibiotics. F/u cultures. Pressors as necessary to maintain a mean arterial blood pressure greater than 65 mmHg. Maintain euvolemia. Monitor renal function Monitor electrolytes. Supplement as necessary. Monitor ins and outs. Diet and lifestyle modifications for weight reduction Obesity - complicates all care. GI prophylaxis. DVT prophylaxis. Prognosis: Poor given patient's multiple co-morbidities. Condition: Critical Rest of plan per hospitalist and other consultants. A total of 35 minutes of critical care time was spent reviewing the patient record, examining the patient, making a diagnostic and therapeutic plan, discussing this plan with the medical personnel, following up on diagnostic studies and following the patient for clinical stability excluding any and all procedures. At least 50% of this time was spent in direct, [id number] contact. Thank you Dr. Joselito Marroquin MD, for allowing me to participate in this patient's care. Further recommendations will depend on the patient's clinical course. Please do not hesitate to contact me if you have any questions or concerns. This medical document was created using an electronic medical record system with [employer] dictation system. Although these documentations are being carefully reviewed, there may still be some phonetic and typographical changes. The errors are purely typographical, due to imperfection on the software program, and do not reflect any compromise in the patient's medical care. Dietary Evaluation Review Comments: Advance to diet as tolerated after the GI procedures. Monitor PO intake to meet 75% of her needs Expected Outcomes/Goals: maintain weight. Plan discussed with: Other (AARTI Braden) Critical Care Time(min): 35 VICK ARANA MD Mar 14, 2024 20:59
--- NOTE | 2024-03-14 23:42 | DVHPN2 ---
Progress Note - Dictate Date Seen: Mar 14, 2024 Has the PT tested + for MRSA If YES, has PT been informed?: Yes Medical Necessity Reason Pt with a Central, PICC or Fol: Yes The following are medically ne: Central Line, Serrano Catheter Reason for serrano catheter: Strict I&O Subjective Patient was seen and evaluated in follow up in the ICU. Patient was successfully extubated 03/13. Patient reports mild SOB. She is on 3 LPM NC. Patient has had three bowel movements today, no evidence of bleeding. H&H stable. vital signs Vital Sign Date Time Temp Pulse Resp B/P (MAP) Pulse Ox O2 Delivery O2 Flow Rate FiO2 03/14/24 22:00 89 03/14/24 22:00 21 100 Nasal Cannula* 3 32 03/14/24 22:00 125/38 (67) 03/14/24 20:00 98.2 98.2 Total Intake and Output 03/13/24 03/13/24 03/14/24 15:00 23:00 07:00 Intake Total 475.938 ml 0 ml Output Total 725 ml 525 ml Balance 475.938 ml -725 ml -525 ml medications Current Medications Medications Dose Ordered Sig/Wm Route Start Time Stop Time Status Last Admin Dose Admin Ondansetron HCl 4 mg Q4HP PRN IV 03/03/24 00:15 03/03/24 18:33 4 MG Nitroglycerin 0.4 mg Q5MINP PRN SL 03/03/24 00:15 Pantoprazole Sodium 40 mg DAILY IV 03/03/24 10:00 03/14/24 09:11 40 MG Morphine Sulfate 2 mg Q2HP PRN IV 03/08/24 12:45 03/10/24 15:22 2 MG Acetaminophen/ Hydrocodone Bitart 1 tab Q4HPRN PRN PO 03/08/24 12:45 Acetaminophen/ Hydrocodone Bitart 1 tab Q4HP PRN PO 03/08/24 12:45 Midazolam HCl 50 ml @ 1 mls/hr Q24H IV 03/08/24 17:15 03/09/24 07:44 2 MLS/HR Diagnostic Test (Pha) 1 strip Q6HR 03/10/24 00:00 03/14/24 18:00 1 STRIP Insulin Human Regular FOLLOW SLIDING SCALE Q6HR SC 03/10/24 00:00 03/10/24 18:00 2 UNITS Dextrose 50 ml UD IV 03/10/24 00:00 Acetaminophen 1,000 mg Q8HPRN PRN IV 03/09/24 15:30 03/09/24 16:06 1,000 MG Enteral Nutritional Formula 1,000 ml 50ML/HR GT 03/12/24 10:15 Labetalol HCl 10 mg Q2HPRN PRN IV 03/14/24 08:45 Hydralazine HCl 5 mg Q4HP PRN IV 03/14/24 19:30 objective GENERAL: Awake, alert, oriented. LUNGS: Decreased breath sounds. CARDIOVASCULAR: Heart sounds are good. ABDOMEN: Soft. laboratory and microbiology Laboratory Tests 03/14/24 03:18 Test 03/14/24 03:18 Range/Units Serum Glucose 86 74-106 mg/dL Problem List Colonic mass found on colonoscopy. GI Bleed. Anemia. HTN. HLD. H/O DVT. Assessment/Plan Continued all current supportive medical care. Morphine and [place] for pain management. GI prophylactics. Vasopressors for hemodynamic support. IV antibiotics as ordered. Additional plan as per the hospital course. Critical care time of 45 minutes provided to include time spent evaluation of patient at bedside, when appropriate patient/family education for diagnosis, treatment plan, review of pertinent medical information and discussion of care with specialty providers and PCP. Dietary Evaluation Review Comments: Advance to diet as tolerated after the GI procedures. Monitor PO intake to meet 75% of her needs Expected Outcomes/Goals: maintain weight. Plan discussed with: Patient MARIANGEL SHOEMAKER MD Mar 14, 2024 23:42
[2024-03-15] VITALS (13 sets, daily range): BP systolic 120–161; BP diastolic 44–68; PULSE 86–103; RESP 13–32; TEMP 97.9–98.4; O2SAT 93–100
[2024-03-15 03:45] LABS: Basophils # (auto) 0 10 ^3/uL (0-0.2); Basophils % (auto) 0.6 % (0.0-2.0); Eosinophils # (auto) 0.1 10 ^3/uL (0-0.8); Eosinophils % (auto) 0.8 % (0.0-7.0); Hematocrit 28.3 % (36.0-46.0); Hemoglobin 8.9 g/dL (12.2-16.2); Lymphocytes # (auto) 0.5 10 ^3/uL (0.4-5.4); Lymphocytes % (auto) 7.6 % (10.0-50.0); Mean Corpuscular Hemoglobin 24.5 pg (28.0-32.0); Mean Corpuscular Hgb Conc. 31.6 g/dL (32.0-36.0); Mean Corpuscular Volume 77.5 fL (80.0-100.0); Monocytes # (auto) 0.8 10 ^3/uL (0-1.3); Monocytes % (auto) 11.3 % (0.0-12.0); Neutrophils # (auto) 5.7 10 ^3/uL (1.6-8.6); Neutrophils % (auto) 79.7 % (37.0-80.0); Nucleated Red Blood Cells % 0.1 %; Platelet Count (auto) 356 10^3/uL (140-450); Red Blood Cells 3.65 10^6/uL (4.0-5.20); White Blood Cell 7.1 10^3/uL (4.4-10.8)
[2024-03-15 03:47] LABS: Red Cell Distribution Width 25.9 % (11.8-14.3)
[2024-03-15 03:54] LABS: Alanine Aminotransferase 24 U/L (7-40); Albumin 3.1 g/dL (3.2-4.8); Alkaline Phosphatase 64 U/L (46-116); Anion Gap 6 (5-15); Aspartate Aminotransferase 33 U/L (13-40); Bilirubin, Total 0.5 mg/dL (0.2-1.0); Calcium 8.4 mg/dL (8.7-10.4); Carbon Dioxide 24 mmol/L (20-31); Chloride 107 mmol/L (98-107); Glucose 95 mg/dL (74-106); Potassium 3.6 mmol/L (3.5-5.1); Sodium 137 mmol/L (136-145); Total Protein 4.9 g/dL (5.7-8.2)
[2024-03-15 04:06] LABS: BUN/Creatinine Ratio 11.6 (10.0-20.0); Blood Urea Nitrogen < 5 mg/dL (9-23)
--- NOTE | 2024-03-15 08:52 | DVHPN2 ---
Progress Note Date Seen: Mar 15, 2024 Has the PT tested + for MRSA If YES, has PT been informed?: Yes Medical Necessity Reason Pt with a Central, PICC or Fol: No Subjective Review of Systems Pt feels well. No complaints. Tolerating diet. Objective vital signs Vital Sign Date Time Temp Pulse Resp B/P (MAP) Pulse Ox O2 Delivery O2 Flow Rate FiO2 03/15/24 06:00 92 03/15/24 06:00 24 96 Nasal Cannula* 1 03/15/24 04:00 97.9 152/52 (85) 97.9 Total Intake and Output 03/14/24 03/14/24 03/15/24 15:00 23:00 07:00 Intake Total 240 ml 200 ml Output Total 525 ml 200 ml Balance -285 ml 0 ml medications Current Medications Medications Dose Ordered Sig/Wm Route Start Time Stop Time Status Last Admin Dose Admin Ondansetron HCl 4 mg Q4HP PRN IV 03/03/24 00:15 03/03/24 18:33 4 MG Nitroglycerin 0.4 mg Q5MINP PRN SL 03/03/24 00:15 Pantoprazole Sodium 40 mg DAILY IV 03/03/24 10:00 03/14/24 09:11 40 MG Morphine Sulfate 2 mg Q2HP PRN IV 03/08/24 12:45 03/10/24 15:22 2 MG Acetaminophen/ Hydrocodone Bitart 1 tab Q4HPRN PRN PO 03/08/24 12:45 Acetaminophen/ Hydrocodone Bitart 1 tab Q4HP PRN PO 03/08/24 12:45 Midazolam HCl 50 ml @ 1 mls/hr Q24H IV 03/08/24 17:15 03/09/24 07:44 2 MLS/HR Diagnostic Test (Pha) 1 strip Q6HR 03/10/24 00:00 03/15/24 06:22 1 STRIP Insulin Human Regular FOLLOW SLIDING SCALE Q6HR SC 03/10/24 00:00 03/10/24 18:00 2 UNITS Dextrose 50 ml UD IV 03/10/24 00:00 Acetaminophen 1,000 mg Q8HPRN PRN IV 03/09/24 15:30 03/09/24 16:06 1,000 MG Enteral Nutritional Formula 1,000 ml 50ML/HR GT 03/12/24 10:15 Labetalol HCl 10 mg Q2HPRN PRN IV 03/14/24 08:45 Hydralazine HCl 5 mg Q4HP PRN IV 03/14/24 19:30 Examination AFVSS. CCV stable. Pulmonary stable. Abdomen Soft, ND and NT. Incision C/D/I laboratory and microbiology Laboratory Tests 03/15/24 03:22 Test 03/15/24 03:22 Range/Units Serum Glucose 95 74-106 mg/dL Microbiology Date/Time Source Procedure Growth Status 03/09/24 16:32 Blood Blood Culture - Final NO GROWTH AFTER 5 DAYS OF INCUBATION. Complete 03/08/24 20:36 Trachea Gram Stain - Final Complete 03/08/24 20:36 Trachea Respiratory Culture - Final Complete Labs and/or images reviewed: Labs reviewed by me Problem List/Assessment/Plan Problems(with codes): (1) Anemia (2) Ascending colon malignant neoplasm Problem List/Assessment/Plan Neuro: Stable. Cardio: Stable.Continue DVT prophylaxis. Pulmonary: I/S. GI: GI prophylaxis.Cardiac diet. If tolerates, may be discharged from surgical standpoint. . Strict Is and Os. Replace electrolytes as needed. Heme/ID. Cxs negative to date. Blood draws in pediatric tubes. Consider FeSO4 325 BID for anemia. Endocrine. Tight glycemic control. Musculoskeletal: PT. Skin. Pressure ulcer precautions and skin care. Will sign off. Pt to follow up with PCP and with me as outpt. Call office for appointment. Defer care to Admitting physician and other consultants. Plan discussed with: Patient, Other (RN and Dr. Major) My Orders My Orders Orders - SUBHASH DELGADO MD Procedure Category Date Status Time Communication Order ORDERS 03/14/24 Transmitted 16:02 Pt Request For Service PT 03/14/24 Logged 16:02 Discontinue Negrete KOLBY 03/14/24 In Process Catheter 16:02 Communication Order ORDERS 03/14/24 Transmitted 17:13 Regular Diet DIET 03/15/24 Transmitted Breakfast Dietary Evaluation Review Comments: Advance to diet as tolerated after the GI procedures. Monitor PO intake to meet 75% of her needs Expected Outcomes/Goals: maintain weight. SUBHASH DELGADO MD Mar 15, 2024 08:52
--- NOTE | 2024-03-15 12:29 | DVHDS2 ---
Discharge Summary Date of Admission Mar 03, 2024 at 00:17 Date of Discharge: Mar 15, 2024 Labs/Diagnostic Data: Laboratory Results Test 03/15/24 06:14 03/15/24 03:22 03/14/24 03:18 03/13/24 12:16 POC Glucose 94 mg/dl (70-106) White Blood Count 7.1 10^3/uL (4.4-10.8) Red Blood Count 3.65 10^6/uL (4.0-5.20) Hemoglobin 8.9 g/dL (12.2-16.2) Hematocrit 28.3 % (36.0-46.0) Mean Corpuscular Volume 77.5 fL (80.0-100.0) Mean Corpuscular Hemoglobin 24.5 pg (28.0-32.0) Mean Corpuscular Hemoglobin Concent 31.6 g/dL (32.0-36.0) Red Cell Distribution Width 25.9 % (11.8-14.3) Platelet Count 356 10^3/uL (140-450) Mean Platelet Volume 8.4 fL (6.9-10.8) Neutrophils (%) (Auto) 79.7 % (37.0-80.0) Lymphocytes (%) (Auto) 7.6 % (10.0-50.0) Monocytes (%) (Auto) 11.3 % (0.0-12.0) Eosinophils (%) (Auto) 0.8 % (0.0-7.0) Basophils (%) (Auto) 0.6 % (0.0-2.0) Neutrophils # (Auto) 5.7 10 ^3/uL (1.6-8.6) Lymphocytes # (Auto) 0.5 10 ^3/uL (0.4-5.4) Monocytes # (Auto) 0.8 10 ^3/uL (0-1.3) Eosinophils # (Auto) 0.1 10 ^3/uL (0-0.8) Basophils # (Auto) 0 10 ^3/uL (0-0.2) Nucleated Red Blood Cells 0.1 % Sodium Level 137 mmol/L (136-145) Potassium Level 3.6 mmol/L (3.5-5.1) Chloride Level 107 mmol/L (98-107) Carbon Dioxide Level 24 mmol/L (20-31) Anion Gap 6 (5-15) Blood Urea Nitrogen < 5 mg/dL (9-23) Creatinine 0.43 mg/dL (0.550-1.02) Glomerular Filtration Rate Calc 96 mL/min (>90) BUN/Creatinine Ratio 11.6 (10.0-20.0) Serum Glucose 95 mg/dL (74-106) Calcium Level 8.4 mg/dL (8.7-10.4) Total Bilirubin 0.5 mg/dL (0.2-1.0) Aspartate Amino Transferase (AST) 33 U/L (13-40) Alanine Aminotransferase (ALT) 24 U/L (7-40) Alkaline Phosphatase 64 U/L (46-116) Total Protein 4.9 g/dL (5.7-8.2) Albumin 3.1 g/dL (3.2-4.8) Magnesium Level 2.0 mg/dL (1.6-2.6) Blood Gas Specimen Type Arterial Blood Gas Sample Site Arterial line Blood Gas Patient Temperature 37.0 Arterial Blood Date Drawn [id number] Arterial Blood pH 7.464 (7.350-7.450) Arterial Blood Partial Pressure CO2 27.0 mmHg (32.0-45.0) Arterial Blood Partial Pressure O2 82.9 mmHg (83.0-108.0) Arterial Blood HCO3 18.9 mmol/L (21.0-28.0) Arterial Blood Oxygen Saturation 96.2 % (94.0-98.0) Arterial Blood Base Excess -3.8 mmol/L (-2.0-3.0) Arterial Blood Oxyhemoglobin 95.5 % (94.0-98.0) Arterial Blood Carboxyhemoglobin 0.4 % (0.5-1.5) Arterial Blood Methemoglobin 0.3 % (0.0-1.5) Kana Test N/a Blood Gas Total Hemoglobin 10.40 g/dL (12.0-16.0) Blood Gas Modality Vent - cpap FiO2 % 30.0 Blood Gas Pressure Support 8 Blood Gas PEEP or CPAP 5.0 Test 03/13/24 07:31 03/13/24 03:24 03/12/24 09:56 03/12/24 05:03 Blood Gas Set Respiration Rate 14.0 Blood Gas Tidal Volume 500.0 Platelet Estimate Adequate Large Platelets Few Hypochromasia (manual) Slight Poikilocytosis (manual) Slight Anisocytosis (manual) Moderate Microcytosis Slight Ovalocytes Few Schistocytes Few Blood Gas Spontaneous Rate 17 Blood Gas Spontaneous Tidal Volume 417 Phosphorus Level 2.4 mg/dL (2.4-5.1) Test 03/11/24 16:10 03/10/24 04:33 03/08/24 19:06 03/08/24 16:13 Vancomycin Level Trough 11.3 ug/mL (5-10) Giant Platelets Few Blood Gas Critical Value Read Back Yes Blood Gas Notified Whom Beatrice yang md Blood Gas Notified Time [id number] Blood Gas Notified By Jordy lopez operations architect Blood Gas EPAP 5 Blood Gas IPAP 15 Test 03/08/24 14:59 03/08/24 09:11 03/07/24 05:41 03/03/24 09:35 Blood Gas Liter Flow 10.00 Prothrombin Time 11.9 sec (9.3-11.8) Prothrombin Time INR 1.13 (0.9-1.15) Activated Partial Thromboplast Time 28.2 SEC (24.5-34.5) Carcinoembryonic Antigen 2.67 ng/mL (<=5.0) D-Dimer, Quantitative 0.47 mg/L FEU (0.0-0.49) Test 03/03/24 00:29 03/03/24 00:25 03/02/24 23:50 03/02/24 23:06 Urine Color Straw (Yellow) Urine Clarity Clear (Clear) Urine pH 6.0 (5.0-9.0) Urine Specific [place] 1.009 (1.001-1.035) Urine Protein Negative (Negative) Urine Ketones Negative (Negative) Urine Blood Negative /uL (Negative) Urine Nitrite Negative (Negative) Urine Bilirubin Negative (Negative) Urine Urobilinogen Normal mg/dL (Negative) Urine Leukocyte Esterase 1+ /uL (Negative) Urine RBC None seen /hpf (0 - 4) Urine WBC <1 /hpf (0 - 5) Urine Squamous Epithelial Cells Few /hpf (<5) Urine Bacteria None seen /hpf (None Seen) Urine Glucose Normal mg/dL (Normal) Reticulocyte Count (auto) 2.77 % (0.5-1.5) Haptoglobin 151 mg/dL (41-333) Iron Level 6 ug/dL (50-170) Total Iron Binding Capacity 409 ug/dL (250-425) Percent Iron Saturation 1.5 % (15-50) Direct Bilirubin 0.2 mg/dL (<0.3) Lactate Dehydrogenase 144 U/L (120-246) Lactic Acid Level 1.3 mmol/L (0.4-2.0) Troponin I High Sensitivity 25 ng/L (</=34) Test 03/02/24 22:25 Stomatocytes Few B-Type Natriuretic Peptide 593.36 pg/mL (0-100) Other Laboratory Tests 03/15/24 03:22 Brief Hx & Hospital Course: Patient is a 83-year-old female with past medical 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 Patient also noted that she was having some bright red blood per rectum. Patient received 2 units PRBC and hematology was consulted for iron deficiency anemia. Patient was ultimately evaluated by GI and underwent colonoscopy which showed a large mass in the ascending colon. Patient was evaluated by general surgery and patient ultimately underwent hemicolectomy. Biopsy was taken which pathology report ultimately showed adenocarcinoma with mucinous features, moderately differentiated. 3 of the 15 lymph nodes were positive for metastatic carcinoma. Patient was discharged without antibiotics as no signs of acute infection are noted. Patient is follow-up with general surgery regarding incision wound. Patient is to be discharged home with home health and physical therapy. Patient's Eliquis was discontinued. There was no evidence of DVT in the lower extremities. Left upper extremity showed superficial thrombophlebitis. Patient tolerated full mechanical diet prior to discharge. Patient discharged in stable condition. [facility] case management help arrange follow-up appointments. Condition at Discharge: Fair Final Diagnosis/Problems List Metastatic Adenocarcinoma of Colon Secondary Diagnosis: Gastrointestinal Bleed Acute Respiratory Failure-Resolved Iron Defiency Anemia Discharge Disposition: Home with Health Services Discharge Instruct/Medications Diet: Cardiac 2g Na,low cholest Activity: No Restrictions, As Tolerated Follow Up/Referral: Follow up with general surgery. Discharge Statement: "Patient was advised to return to the ER or call 911 if any headaches, dizziness, shortness of breath, chest pain, abdominal pain, bleeding, fevers, or worsening of medical condition. Patient was counseled about treatment plan, medications, possible side effects, patientverbalized understanding. All questions were answered to the best of my ability. This discharge took greater then 30 minutes in planning, reviewing documentation, counseling the patient, and discussing with other team members." ASSESSMENT ASSESSMENT Assessment MARVEL CONTRERAS DO Mar 15, 2024 12:29
--- NOTE | 2024-03-15 13:50 | DVHPN2 ---
Progress Note - Dictate Date Seen: Mar 15, 2024 Has the PT tested + for MRSA If YES, has PT been informed?: Yes Medical Necessity Reason Pt with a Central, PICC or Fol: No Subjective Patient seen in ICU 107 Patient is awake and alert on room air Patient is tolerating pureed diet vital signs Vital Sign Date Time Temp Pulse Resp B/P (MAP) Pulse Ox O2 Delivery O2 Flow Rate FiO2 03/15/24 12:30 97.9 94 19 95 03/15/24 12:00 Room Air* 0 21 03/15/24 10:00 139/62 (87) Total Intake and Output 03/14/24 03/14/24 03/15/24 15:00 23:00 07:00 Intake Total 240 ml 200 ml Output Total 525 ml 200 ml Balance -285 ml 0 ml medications Current Medications Medications Dose Ordered Sig/Wm Route Start Time Stop Time Status Last Admin Dose Admin Ondansetron HCl 4 mg Q4HP PRN IV 03/03/24 00:15 03/03/24 18:33 4 MG Nitroglycerin 0.4 mg Q5MINP PRN SL 03/03/24 00:15 Pantoprazole Sodium 40 mg DAILY IV 03/03/24 10:00 03/14/24 09:11 40 MG Morphine Sulfate 2 mg Q2HP PRN IV 03/08/24 12:45 03/10/24 15:22 2 MG Acetaminophen/ Hydrocodone Bitart 1 tab Q4HPRN PRN PO 03/08/24 12:45 Acetaminophen/ Hydrocodone Bitart 1 tab Q4HP PRN PO 03/08/24 12:45 Acetaminophen 1,000 mg Q8HPRN PRN IV 03/09/24 15:30 03/09/24 16:06 1,000 MG Enteral Nutritional Formula 1,000 ml 50ML/HR GT 03/12/24 10:15 Labetalol HCl 10 mg Q2HPRN PRN IV 03/14/24 08:45 Hydralazine HCl 5 mg Q4HP PRN IV 03/14/24 19:30 objective Well-developed well-nourished awake alert in no acute distress HEENT: Pale conjunctiva, otherwise normocephalic atraumatic extraocular movements are intact Heart: Regular rate and rhythm Abdomen: Dressing dry Extremity no clubbing cyanosis or edema laboratory and microbiology Laboratory Tests 03/15/24 03:22 Test 03/15/24 03:22 Range/Units Serum Glucose 95 74-106 mg/dL Problems(with codes): (1) Ventilator dependent (2) Anemia (3) Ascending colon malignant neoplasm Prognosis Plan Discharge planning is in progress Patient will be discharged home Follow up with PCP and surgeon in 1-2 weeks Await final pathology results and Patient will likely need referral to Oncology as an outpatient Once again thank you for allowing me to participate in the care of this patient Dietary Evaluation Review Comments: Advance to diet as tolerated after the GI procedures. Monitor PO intake to meet 75% of her needs Expected Outcomes/Goals: maintain weight. Plan discussed with: Patient, Other (ICU nurse) HORTENSIA FERRARO MD Mar 15, 2024 13:50
--- NOTE | 2024-03-15 13:53 | DVHPN2 ---
Progress Note - Dictate Date Seen: Mar 15, 2024 Has the PT tested + for MRSA If YES, has PT been informed?: Yes Medical Necessity Reason Pt with a Central, PICC or Fol: No Subjective Patient was seen and evaluated in follow up in the ICU. Patient reports feeling better since admission. She was transitioned over to room air. HGB 8.9, HCT 28.3. Upper Extremity Venous Duplex showed no venous thrombus identified in the left upper extremity vessels evaluated above. There is an occlusive thrombophlebitis of the left lower arm. vital signs Vital Sign Date Time Temp Pulse Resp B/P (MAP) Pulse Ox O2 Delivery O2 Flow Rate FiO2 03/15/24 12:30 97.9 94 19 95 03/15/24 10:00 139/62 (87) 03/15/24 10:00 Room Air* 0 21 Total Intake and Output 03/14/24 03/14/24 03/15/24 15:00 23:00 07:00 Intake Total 240 ml 200 ml Output Total 525 ml 200 ml Balance -285 ml 0 ml medications Current Medications Medications Dose Ordered Sig/Wm Route Start Time Stop Time Status Last Admin Dose Admin Ondansetron HCl 4 mg Q4HP PRN IV 03/03/24 00:15 03/03/24 18:33 4 MG Nitroglycerin 0.4 mg Q5MINP PRN SL 03/03/24 00:15 Pantoprazole Sodium 40 mg DAILY IV 03/03/24 10:00 03/14/24 09:11 40 MG Morphine Sulfate 2 mg Q2HP PRN IV 03/08/24 12:45 03/10/24 15:22 2 MG Acetaminophen/ Hydrocodone Bitart 1 tab Q4HPRN PRN PO 03/08/24 12:45 Acetaminophen/ Hydrocodone Bit[place] 1 tab Q4HP PRN PO 03/08/24 12:45 Acetaminophen 1,000 mg Q8HPRN PRN IV 03/09/24 15:30 03/09/24 16:06 1,000 MG Enteral Nutritional Formula 1,000 ml 50ML/HR GT 03/12/24 10:15 Labetalol HCl 10 mg Q2HPRN PRN IV 03/14/24 08:45 Hydralazine HCl 5 mg Q4HP PRN IV 03/14/24 19:30 objective GENERAL: Awake, alert, oriented. LUNGS: Decreased breath sounds. CARDIOVASCULAR: Heart sounds are good. ABDOMEN: Soft. laboratory and microbiology Laboratory Tests 03/15/24 03:22 Test 03/15/24 03:22 Range/Units Serum Glucose 95 74-106 mg/dL Problem List Colonic mass found on colonoscopy. GI Bleed. Anemia. HTN. HLD. H/O DVT. Assessment/Plan Continued all current supportive medical care. Morphine and [place] for pain management. GI prophylactics. Vasopressors for hemodynamic support. IV antibiotics as ordered. Additional plan as per the hospital course. Critical care time of 45 minutes provided to include time spent evaluation of patient at bedside, when appropriate patient/family education for diagnosis, treatment plan, review of pertinent medical information and discussion of care with specialty providers and PCP. Dietary Evaluation Review Comments: Advance to diet as tolerated after the GI procedures. Monitor PO intake to meet 75% of her needs Expected Outcomes/Goals: maintain weight. Plan discussed with: Patient MARIANGEL SHOEMAKER MD Mar 15, 2024 12:55
--- NOTE | 2024-03-15 19:54 | DVHPN2 ---
Progress Note - Dictate Date Seen: Mar 15, 2024 Has the PT tested + for MRSA If YES, has PT been informed?: Yes Medical Necessity Reason Pt with a Central, PICC or Fol: Yes The following are medically ne: Serrano Catheter Reason for serrano catheter: Strict I&O Subjective Patient seen and examined at bedside. Transitioned from supplemental oxygen, currently on room air. Overnight events reviewed. vital signs Vital Sign Date Time Temp Pulse Resp B/P (MAP) Pulse Ox O2 Delivery O2 Flow Rate FiO2 03/15/24 14:00 100 03/15/24 14:00 18 95 Room Air* 0 21 03/15/24 12:30 97.9 03/15/24 10:00 139/62 (87) Total Intake and Output 03/14/24 03/14/24 03/15/24 15:00 23:00 07:00 Intake Total 240 ml 200 ml Output Total 525 ml 200 ml Balance -285 ml 0 ml objective Gen.: Patient lying in bed in no apparent distress. On room air. Head: Normocephalic, atraumatic. Eyes: EOMI/PERRLA. Ears: Normal hearing. Normal anatomy. Neck/trachea: Trachea midline, supple. Nose: Normal external anatomy. Mouth: Moist mucous membranes. Chest: Decreased air entry bilaterally. No wheezing or rhonchi. Cardiovascular: Positive S1, positive S2. Regular rate and rhythm. Abdomen: Positive bowel sounds in all 4 quadrants. Soft, non-tender, non- distended. : Deferred. Rectal: Deferred. Skin: Warm, dry. Intact. Extremities: 2+ radial pulses bilaterally. No lower extremity edema. Neuro: Awake, alert, oriented x3. No gross motor or sensory deficits. Cranial nerves II through XII intact. Gait not assessed. laboratory and microbiology Laboratory Tests 03/15/24 03:22 Test 03/15/24 03:22 Range/Units Serum Glucose 95 74-106 mg/dL Assessment/Plan Impression: Acute hypoxic respiratory failure On mechanical ventilator Pulmonary edema Pleural effusions Atelectasis Obesity Events: Transitioned from supplemental oxygen 1 LPM NC Currently breathing on room air. No respiratory distress. Pain control Avoid oversedation Off Levophed since 9 AM on 03/13/24. Completed antibiotics WBC within normal limits. Incentive spirometry Accu-Cheks, ISS. Glucerna for nutritional support Protonix for GI prophylaxis. F/u Surgery recommendations HOB elevation Aspiration precautions. Patient is stable from the pulmonary standpoint for discharge. U/S venous Doppler of LUE notable for occlusive thrombophlebitis of left lower arm. Labs and imaging reviewed Rest of plan as noted below Plan: s/p extubation on 03/13. Supplemental oxygen PRN. Titrate to keep sats above 92%. CXR notable for: Pulmonary congestion. Left pleural effusion. ABG reviewed, notable for alkalemia. Limited chest U/S notable for B-lines suggestive of pulmonary interstitial edema. Lasix 20 mg IVP x1 Already received Lasix 40 mg Off sedation Antibiotics. F/u cultures. Pressors as necessary to maintain a mean arterial blood pressure greater than 65 mmHg. Maintain euvolemia. Monitor renal function Monitor electrolytes. Supplement as necessary. Monitor ins and outs. Diet and lifestyle modifications for weight reduction Obesity - complicates all care. GI prophylaxis. DVT prophylaxis. Prognosis: Poor given patient's multiple co-morbidities. Rest of plan per hospitalist and other consultants. Thank you Dr. Joselito Marroquin MD, for allowing me to participate in this patient's care. Further recommendations will depend on the patient's clinical course. Please do not hesitate to contact me if you have any questions or concerns. This medical document was created using an electronic medical record system with [employer] dictation system. Although these documentations are being carefully reviewed, there may still be some phonetic and typographical changes. The errors are purely typographical, due to imperfection on the software program, and do not reflect any compromise in the patient's medical care. Dietary Evaluation Review Comments: Advance to diet as tolerated after the GI procedures. Monitor PO intake to meet 75% of her needs Expected Outcomes/Goals: maintain weight. Plan discussed with: Patient, Other (AARTI [place]) VICK ARANA MD Mar 15, 2024 19:54
== END 2024-03-15 15:21 | disposition home health service (06) | DRG 329 ==
LOC: EDBD 22:14 → ER 22:14 → TELE 03-03 00:17 → TELE-WESTW 03-03 03:42 → ICU CENTRL 03-08 16:40 → ICU WEST 03-12 11:09
PROVIDERS: ADMIT Student in an Organized Health Care Education/Training Program; ATTEND Student in an Organized Health Care Education/Training Program
PROC: 30233N1 Transfusion of Nonautologous Red Blood Cells into Peripheral Vein, Percutaneous Approach (ICD-10-PCS; 2024-03-03)
PROC: 5A09357 Assistance with Respiratory Ventilation, Less than 24 Consecutive Hours, Continuous Positive Airway Pressure (ICD-10-PCS; 2024-03-03)
PROC: 0DB98ZZ Excision of Duodenum, Via Natural or Artificial Opening Endoscopic (ICD-10-PCS; 2024-03-05)
PROC: 0W3P8ZZ Control Bleeding in Gastrointestinal Tract, Via Natural or Artificial Opening Endoscopic (ICD-10-PCS; 2024-03-05)
PROC: 0DBK8ZX Excision of Ascending Colon, Via Natural or Artificial Opening Endoscopic, Diagnostic (ICD-10-PCS; 2024-03-06)
PROC: 0BH17EZ Insertion of Endotracheal Airway into Trachea, Via Natural or Artificial Opening (ICD-10-PCS; 2024-03-08)
PROC: 5A1955Z Respiratory Ventilation, Greater than 96 Consecutive Hours (ICD-10-PCS; 2024-03-08)
PROC: 02HV33Z Insertion of Infusion Device into Superior Vena Cava, Percutaneous Approach (ICD-10-PCS; 2024-03-08)
PROC: B548ZZA Ultrasonography of Superior Vena Cava, Guidance (ICD-10-PCS; 2024-03-08)
PROC: 0B9D8ZX Drainage of Right Middle Lung Lobe, Via Natural or Artificial Opening Endoscopic, Diagnostic (ICD-10-PCS; 2024-03-08)
PROC: 03HY32Z Insertion of Monitoring Device into Upper Artery, Percutaneous Approach (ICD-10-PCS; 2024-03-08)
PROC: 0DTG4ZZ Resection of Left Large Intestine, Percutaneous Endoscopic Approach (ICD-10-PCS; principal; 2024-03-08 10:19)
PROC: 0DNL4ZZ Release Transverse Colon, Percutaneous Endoscopic Approach (ICD-10-PCS; 2024-03-08 10:19)
PROC: 05H933Z Insertion of Infusion Device into Right Brachial Vein, Percutaneous Approach (ICD-10-PCS; 2024-03-14)
PROC: B54MZZA Ultrasonography of Right Upper Extremity Veins, Guidance (ICD-10-PCS; 2024-03-14)
DX: C18.2 Malignant neoplasm of ascending colon (principal); J96.01 Acute respiratory failure with hypoxia; J96.02 Acute respiratory failure with hypercapnia; K29.61 Other gastritis with bleeding; J98.11 Atelectasis; N17.9 Acute kidney failure, unspecified; R57.9 Shock, unspecified; D68.69 Other thrombophilia; C77.8 Secondary and unspecified malignant neoplasm of lymph nodes of multiple regions; I50.20 Unspecified systolic (congestive) heart failure; D50.0 Iron deficiency anemia secondary to blood loss (chronic); E78.00 Pure hypercholesterolemia, unspecified; E66.9 Obesity, unspecified; K59.00 Constipation, unspecified; K66.0 Peritoneal adhesions (postprocedural) (postinfection); M81.0 Age-related osteoporosis without current pathological fracture; K57.30 Diverticulosis of large intestine without perforation or abscess without bleeding; I11.0 Hypertensive heart disease with heart failure; K44.9 Diaphragmatic hernia without obstruction or gangrene; K22.2 Esophageal obstruction; K31.7 Polyp of stomach and duodenum; K64.8 Other hemorrhoids; K82.8 Other specified diseases of gallbladder; I27.20 Pulmonary hypertension, unspecified; Z86.718 Personal history of other venous thrombosis and embolism; Z90.710 Acquired absence of both cervix and uterus; Z96.643 Presence of artificial hip joint, bilateral; Z68.29 Body mass index [BMI] 29.0-29.9, adult
CPT/HCPCS: 36415; 36600; 43239; 45380; 71045; 71260; 74177; 80048; 80053; 80202; 81001; 82248; 82378; 82565; 82805; 82962; 83010; 83540; 83550; 83605; 83615; 83735; 83880; 84100; 84132; 84484; 85014; 85018; 85025; 85045; 85379; 85610; 85730; 86850; 86880; 86900; 86901; 86920; 87040; 87070; 87081; 87205; 92610; 93005; 93306; 93970; 93971; 94002; 94003; 94640; 94660; 97163; G0378; J0330; J1100; J2003; J2250; J2405; J2470; J2543; J3480; J3490; J7060